=== PATIENT | male | born 1960 | race Caucasian/White ===

== ENCOUNTER 2021-09-09 12:28 | Emergency (ER) | payer MEDICAID, SELFPAY ==
--- NOTE | ~2021-09-09 | XR_ITS ---
EXAMINATION: XR CHEST CLINICAL INFORMATION: Cough and fever COMPARISON: None TECHNIQUE: Frontal view of the chest was obtained. FINDINGS: The cardiac and mediastinal contours are normal. There is atelectasis at the left lung base. The lungs are otherwise clear. There is no pleural effusion or pneumothorax. There is distended bowel below the diaphragm. XR/XR chest 1V IMPRESSION: Atelectasis at the left lung base. Distended bowel below the diaphragm.
--- NOTE | ~2021-09-09 | CT_ITS ---
EXAMINATION: CT ABDOMEN AND PELVIS WITHOUT CONTRAST CLINICAL INFORMATION: Abdominal pain, fever COMPARISON: None TECHNIQUE: Multidetector volumetric imaging was performed from the superior aspect of the liver through the pubic symphysis. Sagittal and coronal reformatted images were obtained on the technologist's workstation. This CT examination was performed using dose optimization techniques as appropriate, variously including the following: *Automated exposure control *Adjustment of mA and/or kV according to patient size (this includes techniques or standardized protocols for targeted exams where dose is matched to indication/reason for exam; i.e. extremities or head) *Use of iterative reconstruction technique DLP: 983 mGy-cm FINDINGS: LUNG BASES: High attenuation along the course of the coronary arteries may reflect a combination of coronary artery calcification and coronary artery stents. ABDOMINAL AND PELVIC WALL: Small fat-containing left inguinal hernia. LIVER AND BILIARY TREE: Hypoattenuating hepatic parenchyma compatible with hepatic steatosis. The liver is enlarged measuring 23 cm in span. GALLBLADDER: Cholelithiasis without evidence of acute cholecystitis. PANCREAS: Unremarkable. SPLEEN: Unremarkable. ADRENAL GLANDS: Unremarkable. KIDNEYS AND URETERS: A 0.8 cm hyperattenuating indeterminate left lower pole renal lesion. Punctate nonobstructing left renal stones. No hydronephrosis or obstructive ureterolithiasis. Fluid attenuation Bosniak 1 left renal cysts, no imaging follow-up recommended. GASTROINTESTINAL TRACT: Large desiccated stool ball within the colon measuring at least 5.9 cm in transverse diameter and at least 14.2 cm in span. Gaseous distention of colon proximal to this with relative wall thickening involving the sigmoid colon and rectum with respect to degree of distention raising suspicion for colitis with mild mesorectal fat stranding, 7:75. Appendicolith noted in the base of an otherwise normal appendix. VASCULAR: Atherosclerosis of the abdominal aorta and major branch vessels. LYMPH NODES/PERITONEUM: No lymphadenopathy. FREE FLUID: None. BLADDER: Unremarkable. PELVIC VISCERA: Unremarkable. OSSEOUS STRUCTURES: Unremarkable. CT/CT abdomen pelvis wo con IMPRESSION: Large desiccated stool ball within the colon measuring at least 5.9 cm in transverse diameter and at least 14.2 cm in span. Gaseous distention of colon proximal to this with relative wall thickening involving the sigmoid colon and rectum, with surrounding mesorectal fat stranding raising suspicion for stercoral colitis. Hepatomegaly and hepatic steatosis. Cholelithiasis without evidence of acute cholecystitis. Punctate nonobstructing left renal stones. No hydronephrosis or obstructive ureterolithiasis. A 0.8 cm indeterminate left lower pole hyperattenuating renal lesion. Given this may reflect a hyperdense renal cyst, recommend correlation with renal ultrasound, and if renal ultrasound is not confirmatory this reflects a cyst consider a CT or MR renal mass protocol, although this may be too small to definitively characterize.
[2021-09-09 12:44] VITALS: BP 104/54; PULSE 99; RESP 18; TEMP 37.6; O2SAT 95; BMI 36.3
--- NOTE | 2021-09-09 12:48 | ECG_ITS ---
Test Reason : SEPSIS Blood Pressure : / mmHG Vent. Rate : 099 BPM Atrial Rate : 099 BPM P-R Int : 256 ms QRS Dur : 106 ms QT Int : 346 ms P-R-T Axes : 032 -73 025 degrees QTc Int : 444 ms Sinus rhythm with 1st degree A-V block Left axis deviation Incomplete right bundle branch block Inferior infarct , age undetermined Anteroseptal infarct , age undetermined Abnormal ECG No previous ECGs available Referred By: Amy Samayoa Electronically Signed By:CHOLO WILSON MD
[2021-09-09 13:45] LABS: COVID-19 Test Negative (Negative); IDNOW Serial# 16C4AD1C; IDNOW Serial# 55D5AD1C; Influenza A Negative (Negative); Influenza B2 Negative (Negative)
[2021-09-09 13:46] LABS: Lactic Acid 2.3 mmol/L (0.5-2.0)
--- NOTE | 2021-09-09 13:56 | ED.GENADULT ---
HPI - General Adult General Chief complaint: General Medical Stated complaint: FEVER FROM SNF PER EMS Time Seen by Provider: 09/09/21 12:47 Source: patient and EMS Mode of arrival: EMS History of Present Illness HPI narrative: 60-year-old male brought in by EMS, history provided primarily by EMS and the sending facility as patient appears to have some cognitive delays. Patient denies any current pain, shortness of breath, chest pain or palpitations at this time. The facility states that patient had a fever of 103 this morning for which they gave him Tylenol. Related Data Home Medications Medication Instructions Recorded Confirmed acetaminophen 325 mg tablet 650 mg PO BID 09/09/21 09/09/21 amlodipine 10 mg tablet 10 mg PO DAILY 09/09/21 09/09/21 ascorbic acid (vitamin C) 500 mg 500 mg PO DAILY 09/09/21 09/09/21 tablet aspirin 81 mg chewable tablet 81 mg PO DAILY 09/09/21 09/09/21 calcium carbonate 600 mg-vitamin 1 tab PO DAILY 09/09/21 09/09/21 D3 5 mcg (200 unit) tablet cetirizine 10 mg tablet 10 mg PO DAILY 09/09/21 09/09/21 clozapine 50 mg tablet 50 mg PO BEDTIME 09/09/21 09/09/21 diphenhydramine HCl 25 mg tablet 25 mg PO BEDTIME 09/09/21 09/09/21 docusate sodium 100 mg tablet 100 mg PO BID 09/09/21 09/09/21 dulaglutide 4.5 mg/0.5 mL 4.5 mg subcut [place] 09/09/21 09/09/21 subcutaneous pen injector ferrous sulfate 325 mg (65 mg 325 mg PO DAILY 09/09/21 09/09/21 iron) tablet folic acid 1 mg tablet 1 mg PO BID 09/09/21 09/09/21 haloperidol 2 mg tablet 8 mg PO BEDTIME 09/09/21 09/09/21 haloperidol 5 mg tablet 5 mg PO DAILY PRN Psychosis 09/09/21 09/09/21 isosorbide mononitrate 30 mg 30 mg PO DAILY 09/09/21 09/09/21 tablet,extended release 24 hr lactulose 10 gram/15 mL oral 20 g PO BID 09/09/21 09/09/21 solution levothyroxine 25 mcg tablet 25 mcg PO DAILY@0600 09/09/21 09/09/21 lorazepam 0.5 mg tablet (Ativan) 0.25 mg PO Q8H PRN Anxiety 09/09/21 09/09/21 magnesium chloride 71.5 mg 143 mg PO DAILY 09/09/21 09/09/21 (magnesium chloride) tablet,delayed release magnesium hydroxide 400 mg/5 mL 400 mg PO BEDTIME 09/09/21 09/09/21 oral suspension (Milk of Magnesia) metformin 1,000 mg tablet 1,000 mg PO BID 09/09/21 09/09/21 metoprolol tartrate 50 mg tablet 50 mg PO DAILY 09/09/21 09/09/21 mirtazapine 15 mg tablet 15 mg PO BEDTIME 09/09/21 09/09/21 niacin 500 mg tablet 500 mg PO DAILY 09/09/21 09/09/21 omega 4-kgh-cpp-fish oil 1,000 mg 1 cap PO BEDTIME 09/09/21 09/09/21 (120 mg-180 mg) capsule (Fish Oil) omeprazole 20 mg tablet,delayed 20 mg PO DAILY 09/09/21 09/09/21 release rosuvastatin 40 mg tablet 40 mg PO BEDTIME 09/09/21 09/09/21 sennosides 8.6 mg tablet (senna) 8.6 mg PO BEDTIME 09/09/21 09/09/21 simethicone 80 mg chewable tablet 80 mg PO TIDAC 09/09/21 09/09/21 topiramate 100 mg tablet (Topamax) 100 mg PO BID 09/09/21 09/09/21 valproic acid (as sodium salt) 250 1,250 mg PO BID 09/09/21 09/09/21 mg/5 mL oral solution Allergies Allergy/AdvReac Type Severity Reaction Status Date / Time Unable to Assess Allergy Unverified 09/09/21 12:47 Review of Systems Review of Systems: Pertinent positives and negatives as stated in HPI and remaining ROS not able to obtain due to patient's underlying cognitive constraints. [facility] Past Medical History Source: nursing notes reviewed Medical History Anxiety Atherosclerotic heart disease of [place] coronary artery without angina pectoris Bipolar disorder COPD (chronic obstructive pulmonary disease) Delusional disorder Diabetes Dysphagia GERD (gastroesophageal reflux disease) HTN (hypertension) Hyperlipidemia Insomnia MDD (major depressive disorder) Obesity KILEY (obstructive sleep apnea) PTSD (post-traumatic stress disorder) Schizoaffective disorder Social History Social History Advance Directives: No Advance Directives Information Provided: No Physical Exam ED Vital Signs: Vital Signs - 24 hr 09/09/21 12:44 09/09/21 14:18 09/09/21 15:56 Temperature 99.6 F 97.9 F Pulse Rate 99 94 88 Respiratory Rate 18 16 16 Blood Pressure 104/54 L 117/67 133/69 Pulse Oximetry 95 94 96 Oxygen Delivery Method Room Air Room Air Room Air 09/09/21 16:27 09/09/21 17:54 Temperature 98.2 F Pulse Rate 84 90 Respiratory Rate 16 16 Blood Pressure 124/60 Pulse Oximetry 98 Oxygen Delivery Method Room Air BMI result Body Mass Index 36.3 VITAL SIGNS: Reviewed. GENERAL: Chronically ill, in no acute distress. HEAD: Normocephalic/atraumatic EYES: PERRLA, EOMI EARS: Ext canals without abnormality OROPHARYNX: no oral lesions noted, posterior pharynx clear LUNGS: decreased bilaterally, right greater than left, no noted rhonchi or rales. SpO2<95> CARDIOVASCULAR: Regular rate and rhythm without noted murmurs, no JVD or lower extremity edema. ABDOMEN: Soft, non-tender, non-distended with bowel sounds. MUSCULOSKELETAL: No tenderness, deformities, or effusions noted on gross inspection. EXTREMITIES: No cyanosis, clubbing or edema, on observation of bilateral lower extremities patient does not appear to walk at baseline. SKIN: Inspection of the skin reveals no rashes, ulcerations, jaundice, pallor, or petechiae. NEUROLOGIC: Alert and oriented x 2. Course Course Course Narrative: 1420: 60-year-old male with history and clinical presentation suggestive possible infectious etiology, there was a delay in obtaining full labs due to venous access. On review of all investigations there is no leukocytosis, patient has remained afebrile while here in the emergency room, chest x-ray, CT scan, urine are otherwise negative for acute findings, patient is noted to be tolerating oral in food without difficulty there is a possibility of some mild atelectasis but otherwise patient is hemodynamically stable and cleared for return to his facility. The noted lactic acidosis likely secondary to mild dehydration and nebulized treatments. Medical Decision Making Lab Data Result diagrams: 09/09/21 14:48 09/09/21 14:48 Labs: Lab Results 09/09/21 09/09/21 09/09/21 Range/Units 13:12 13:12 13:12 WBC (4.8-10.8) X10*3/uL RBC (4.60-5.80) X10*6/uL Hgb (14.0-18.0) g/dl Hct (42.0-52.0) % MCV (80.0-98.0) fL MCH (27.0-33.0) pg MCHC (31.0-36.0) g/dl RDW (11.0-16.0) % Plt Count (160-400) X10*3/uL MPV (9.4-12.4) fL Immature Gran % (Auto) (0.0-0.4) % Neut % (Auto) (45-73) % Lymph % (Auto) (20-40) % [place] % (Auto) (2-11) % Eos % (Auto) (0-4) % Baso % (Auto) (0-2) % Lymph # (Auto) (1.2-4.9) X10*3/uL [place] # (Auto) (0.1-1.2) X10*3/uL Eos # (Auto) (0.0-0.4) X10*3/uL Baso # (Auto) (0.0-0.2) X10*3/uL Abs Immat Gran (auto) (0.00-0.03) X10*3/uL Absolute Neuts (auto) (2.0-8.3) x10*3/uL Absolute Nucleated RBC (0.0-0.012) X10*3/uL Nucleated RBC % (auto) (0.0-0.2) /100WBC PT (9.9-13.0) SEC INR (0.9-1.1) Sodium (135-145) mmol/L Potassium (3.3-5.1) mmol/L Chloride (96-108) mmol/L Carbon Dioxide (22-29) mmol/L Anion Gap (12-20) BUN (9-16) mg/dL Creatinine (0.5-1.4) mg/dL Estim Creat Clear Calc Estimated GFR Random Glucose (60-115) mg/dL Lactic Acid 2.3 H* (0.5-2.0) mmol/L Lactic Acid F/U @ 2Hr (0.5-2.0) mmol/L Lactic Acid F/U @ 4Hr (0.5-2.0) mmol/L Calcium (8.4-10.2) mg/dL Total Bilirubin (0.0-1.0) mg/dL AST (5-37) U/L ALT (0-40) U/L Alkaline Phosphatase (39-117) U/L Total Protein (6.5-8.0) g/dL Albumin (3.5-5.0) g/dL Urine Color Urine Appearance Urine pH (5.0-8.0) Ur Specific [place] (1.005-1.025) Urine Protein (NEG-TRACE) MG/DL Urine Glucose (UA) (NEG) MG/DL Urine Ketones (NEG) MG/DL Urine Blood (NEG) Urine Nitrite (NEG) Ur Leukocyte Esterase (NEG) Urine RBC (0) /HPF Urine WBC (0-4) /HPF Ur Squamous Epith Cells /LPF Urine Bacteria /LPF Urine Mucus /LPF COVID-19 (TAIWO) Negative (Negative) COVID-19 Clin Com See Note Influenza Type A (ANDREA) Negative (Negative) Influenza Type B (ANDREA) Negative (Negative) Influenza A & B Note See Note 09/09/21 09/09/21 09/09/21 Range/Units 14:48 14:48 14:48 WBC 9.5 (4.8-10.8) X10*3/uL RBC 4.49 L (4.60-5.80) X10*6/uL Hgb 12.5 L (14.0-18.0) g/dl Hct 38.0 L (42.0-52.0) % MCV 84.6 (80.0-98.0) fL MCH 27.8 (27.0-33.0) pg MCHC 32.9 (31.0-36.0) g/dl RDW 15.9 (11.0-16.0) % Plt Count 183 (160-400) X10*3/uL MPV 9.4 (9.4-12.4) fL Immature Gran % (Auto) 0.4 (0.0-0.4) % Neut % (Auto) 63.3 (45-73) % Lymph % (Auto) 24.3 (20-40) % [place] % (Auto) 11.3 H (2-11) % Eos % (Auto) 0.4 (0-4) % Baso % (Auto) 0.3 (0-2) % Lymph # (Auto) 2.3 (1.2-4.9) X10*3/uL [place] # (Auto) 1.1 (0.1-1.2) X10*3/uL Eos # (Auto) 0.0 (0.0-0.4) X10*3/uL Baso # (Auto) 0.0 (0.0-0.2) X10*3/uL Abs Immat Gran (auto) 0.04 H (0.00-0.03) X10*3/uL Absolute Neuts (auto) 6.0 (2.0-8.3) x10*3/uL Absolute Nucleated RBC 0.000 (0.0-0.012) X10*3/uL Nucleated RBC % (auto) 0.0 (0.0-0.2) /100WBC PT 12.6 (9.9-13.0) SEC INR 1.1 (0.9-1.1) Sodium 133 L (135-145) mmol/L Potassium 4.5 (3.3-5.1) mmol/L Chloride 100 (96-108) mmol/L Carbon Dioxide 23 (22-29) mmol/L Anion Gap 15 (12-20) BUN 26 H (9-16) mg/dL Creatinine 0.94 (0.5-1.4) mg/dL Estim Creat Clear Calc 93.4 Estimated GFR > 60 Random Glucose 223 H (60-115) mg/dL Lactic Acid (0.5-2.0) mmol/L Lactic Acid F/U @ 2Hr (0.5-2.0) mmol/L Lactic Acid F/U @ 4Hr (0.5-2.0) mmol/L Calcium 9.3 (8.4-10.2) mg/dL Total Bilirubin < 0.2 (0.0-1.0) mg/dL AST 13 (5-37) U/L ALT 25 (0-40) U/L Alkaline Phosphatase 61 (39-117) U/L Total Protein 6.9 (6.5-8.0) g/dL Albumin 3.7 (3.5-5.0) g/dL Urine Color Urine Appearance Urine pH (5.0-8.0) Ur Specific [place] (1.005-1.025) Urine Protein (NEG-TRACE) MG/DL Urine Glucose (UA) (NEG) MG/DL Urine Ketones (NEG) MG/DL Urine Blood (NEG) Urine Nitrite (NEG) Ur Leukocyte Esterase (NEG) Urine RBC (0) /HPF Urine WBC (0-4) /HPF Ur Squamous Epith Cells /LPF Urine Bacteria /LPF Urine Mucus /LPF COVID-19 (TAIWO) (Negative) COVID-19 Clin Com Influenza Type A (ANDREA) (Negative) Influenza Type B (ANDREA) (Negative) Influenza A & B Note 09/09/21 09/09/21 09/09/21 Range/Units 15:43 16:11 18:49 WBC (4.8-10.8) X10*3/uL RBC (4.60-5.80) X10*6/uL Hgb (14.0-18.0) g/dl Hct (42.0-52.0) % MCV (80.0-98.0) fL MCH (27.0-33.0) pg MCHC (31.0-36.0) g/dl RDW (11.0-16.0) % Plt Count (160-400) X10*3/uL MPV (9.4-12.4) fL Immature Gran % (Auto) (0.0-0.4) % Neut % (Auto) (45-73) % Lymph % (Auto) (20-40) % [place] % (Auto) (2-11) % Eos % (Auto) (0-4) % Baso % (Auto) (0-2) % Lymph # (Auto) (1.2-4.9) X10*3/uL [place] # (Auto) (0.1-1.2) X10*3/uL Eos # (Auto) (0.0-0.4) X10*3/uL Baso # (Auto) (0.0-0.2) X10*3/uL Abs Immat Gran (auto) (0.00-0.03) X10*3/uL Absolute Neuts (auto) (2.0-8.3) x10*3/uL Absolute Nucleated RBC (0.0-0.012) X10*3/uL Nucleated RBC % (auto) (0.0-0.2) /100WBC PT (9.9-13.0) SEC INR (0.9-1.1) Sodium (135-145) mmol/L Potassium (3.3-5.1) mmol/L Chloride (96-108) mmol/L Carbon Dioxide (22-29) mmol/L Anion Gap (12-20) BUN (9-16) mg/dL Creatinine (0.5-1.4) mg/dL Estim Creat Clear Calc Estimated GFR Random Glucose (60-115) mg/dL Lactic Acid (0.5-2.0) mmol/L Lactic Acid F/U @ 2Hr 2.2 H* (0.5-2.0) mmol/L Lactic Acid F/U @ 4Hr 2.1 H* (0.5-2.0) mmol/L Calcium (8.4-10.2) mg/dL Total Bilirubin (0.0-1.0) mg/dL AST (5-37) U/L ALT (0-40) U/L Alkaline Phosphatase (39-117) U/L Total Protein (6.5-8.0) g/dL Albumin (3.5-5.0) g/dL Urine Color YELLOW Urine Appearance CLEAR Urine pH 6.0 (5.0-8.0) Ur Specific [place] 1.025 (1.005-1.025) Urine Protein 2+ H (NEG-TRACE) MG/DL Urine Glucose (UA) NEG (NEG) MG/DL Urine Ketones 5 (NEG) MG/DL Urine Blood NEG (NEG) Urine Nitrite NEG (NEG) Ur Leukocyte Esterase NEG (NEG) Urine RBC 0-2 (0) /HPF Urine WBC 0 (0-4) /HPF Ur Squamous Epith Cells TRACE /LPF Urine Bacteria NONE /LPF Urine Mucus TRACE /LPF COVID-19 (TAIWO) (Negative) COVID-19 Clin Com Influenza Type A (ANDREA) (Negative) Influenza Type B (ANDERA) (Negative) Influenza A & B Note ECG Data Attestation: I personally reviewed and interpreted this ECG as follows: Prior ECG tracings: not available for review Interpretation: Sinus rhythm with first-degree AV block, HR-99, noted Q-waves in the inferior leads, age indeterminate, no prior EKGs for comparison here. No STEMI, QTC within normal limits. Discharge Plan Discharge Clinical Impression: Fever of unknown origin, Constipation Patient Disposition: [facility] Instructions: Constipation (ED), Fever in Adults (ED), Atelectasis (ED) Additional Instructions: 1. Resume all home medications as prescribed. 2. No source for the fever was identified. 3. follow-up with your primary care provider in the next 2-3 days for re-evaluation. Return to the ER for worsening symptoms. Prescriptions: No Action sennosides [senna] 8.6 mg Tablet 8.6 mg PO BEDTIME acetaminophen 325 mg Tablet 650 mg PO BID haloperidol [Haldol] 5 mg Tablet 5 mg PO DAILY PRN (Reason: Psychosis) cetirizine 10 mg Tablet 10 mg PO DAILY isosorbide mononitrate 30 mg Tablet Extended Release 24 Hr 30 mg PO DAILY calcium carbonate-vitamin D3 [Calcium + D] 600 mg-5 mcg (200 unit) Tablet 1 tab PO DAILY levothyroxine 25 mcg Tablet 25 mcg PO DAILY@0600 lorazepam [Ativan] 0.5 mg Tablet 0.25 mg PO Q8H PRN (Reason: Anxiety) magnesium hydroxide [Milk of Magnesia] 400 mg/5 mL Suspension 400 mg PO BEDTIME ascorbic acid (vitamin C) 500 mg Tablet 500 mg PO DAILY valproic acid (as sodium salt) 250 mg/5 mL Solution 1,250 mg PO BID amlodipine 10 mg Tablet 10 mg PO DAILY ferrous sulfate 325 mg (65 mg iron) Tablet 325 mg PO DAILY metformin 1,000 mg Tablet 1,000 mg PO BID diphenhydramine HCl 25 mg Tablet 25 mg PO BEDTIME niacin 500 mg Tablet 500 mg PO DAILY aspirin 81 mg Tablet,Chewable 81 mg PO DAILY folic acid 1 mg Tablet 1 mg PO BID mirtazapine 15 mg Tablet 15 mg PO BEDTIME haloperidol [Haldol] 2 mg Tablet 8 mg PO BEDTIME topiramate [Topamax] 100 mg Tablet 100 mg PO BID docusate sodium 100 mg Tablet 100 mg PO BID simethicone 80 mg Tablet,Chewable 80 mg PO TIDAC rosuvastatin 40 mg Tablet 40 mg PO BEDTIME lactulose 10 gram/15 mL Solution 20 g PO BID clozapine 50 mg Tablet 50 mg PO BEDTIME omeprazole 20 mg Tablet,Delayed Release (Dr/Ec) 20 mg PO DAILY omega 7-afs-fyp-fish oil [Fish Oil] 1,000 mg (120 mg-180 mg) Capsule 1 cap PO BEDTIME magnesium chloride 71.5 mg Tablet,Delayed Release (Dr/Ec) 143 mg PO DAILY dulaglutide 4.5 mg/0.5 mL Pen Injector 4.5 mg SUBCUT [place] metoprolol tartrate 50 mg Tablet 50 mg PO DAILY Referrals: Desirae Yin MD [Primary Care Provider] -
[2021-09-09 14:18] VITALS: BP 117/67; PULSE 94; RESP 16; O2SAT 94
--- NOTE | 2021-09-09 14:25 | PHA.MEDREC ---
Pharmacy Consult ? Medication Reconciliation Pharmacy has completed the medication reconciliation. Patient came from [facility] with medicaiton list. Called to confirmed metformin dose is 1000 BID not 100 mg BID as written in care. Also confirmed patient is on metoprolol tatrate as med list on stated metoprolol. Judie Ledbetter, PharmD
[2021-09-09 14:53] LABS: Basophils Percent Auto 0.3 % (0-2); Eosinophils Percent Auto 0.4 % (0-4); Hemoglobin 12.5 g/dl (14.0-18.0); Imm Gran Abs Auto 0.04 X10*3/uL (0.00-0.03); Imm Gran Pct Auto 0.4 % (0.0-0.4); Lymphocytes Absolute Auto 2.3 X10*3/uL (1.2-4.9); Lymphocytes Percent Auto 24.3 % (20-40); Mean Corpuscular HGB Conc 32.9 g/dl (31.0-36.0); Mean Corpuscular Hemoglobin 27.8 pg (27.0-33.0); Mean Corpuscular Volume 84.6 fL (80.0-98.0); Mean Platelet Volume 9.4 fL (9.4-12.4); Monocytes Absolute Auto 1.1 X10*3/uL (0.1-1.2); Monocytes Percent Auto 11.3 % (2-11); Neutrophils Percent Auto 63.3 % (45-73); Platelet Count 183 X10*3/uL (160-400); Red Blood Count 4.49 X10*6/uL (4.60-5.80); Red Cell Distribution Width 15.9 % (11.0-16.0); White Blood Count 9.5 X10*3/uL (4.8-10.8)
[2021-09-09 14:59] LABS: INTERNATIONAL NORM RATIO 1.1 (0.9-1.1); Prothrombin Time 12.6 SEC (9.9-13.0)
[2021-09-09 15:15] LABS: Reflex Lactate? Lactic Acid Added
[2021-09-09 15:34] LABS: Alanine Aminotransferase 25 U/L (0-40); Albumin Level 3.7 g/dL (3.5-5.0); Alkaline Phosphatase 61 U/L (39-117); Anion Gap 15 (12-20); Aspartate Amino Transferase 13 U/L (5-37); Bilirubin Total < 0.2 mg/dL (0.0-1.0); Blood Urea Nitrogen 26 mg/dL (9-16); Calcium 9.3 mg/dL (8.4-10.2); Carbon Dioxide 23 mmol/L (22-29); Chloride 100 mmol/L (96-108); Creatinine Clr Calc Pharmacy 93.4; Estimated Glomerular Filt Rate > 60; Glucose Random 223 mg/dL (60-115); Potassium 4.5 mmol/L (3.3-5.1); Sodium 133 mmol/L (135-145); Total Protein 6.9 g/dL (6.5-8.0)
--- NOTE | 2021-09-09 15:49 | PC.NURSE ---
collected urine specimen via straight cath. Pt resting comfortably.
[2021-09-09 15:53] LABS: Appearance Urine CLEAR; Color Urine YELLOW; Glucose Urine UA NEG (NEG); Leukocyte Esterase Urine NEG (NEG); Nitrite Urine NEG (NEG); Specific Gravity - Urine 1.025 (1.005-1.025); UACC Culture Trigger NO; Urine Blood NEG (NEG); Urine Ketones 5 MG/DL (NEG); Urine Protein 2+ MG/DL (NEG-TRACE)
[2021-09-09 15:56] VITALS: BP 133/69; PULSE 88; RESP 16; TEMP 36.6; O2SAT 96
--- NOTE | 2021-09-09 15:57 | PC.NURSE ---
PATIENT WAS SOILED ,CARE GIVEN BEDDING CHANGE PATIENT WATCHING TELEVISION .
[2021-09-09 16:21] LABS: Mucus Urine TRACE /LPF; RBC Urine 0-2 /HPF (0); Squamous Epithelial Cell Urine TRACE /LPF; WBC Urine 0 /HPF (0-4)
[2021-09-09] MEDS: Albuterol/Iprat 2.5/0.5MG 3 ML AMPUL.NEB INHALE (16:24)
[2021-09-09 16:27] VITALS: PULSE 84; RESP 16; O2SAT 98
[2021-09-09 16:46] LABS: ~Lactic Acid-LAB USE ONLY 2.2 mmol/L (0.5-2.0)
[2021-09-09] MEDS: 0.9 % Sodium Chloride 1,000 ML 999 ML IV (16:59)
[2021-09-09 17:54] VITALS: BP 124/60; PULSE 90; RESP 16; TEMP 36.8; O2SAT 98
[2021-09-09 17:55] LABS: MANUAL DIFF FLAG NO
[2021-09-09 18:15] LABS: Reflex Lactate? 2 Y
--- NOTE | 2021-09-09 18:52 | PM.CNGS ---
History of Present Illness Consult details Consult date: 09/09/21 Narrative: 60M referred to me by the ED for an abnormal CT scan of the abdomen. He is fron a NH with cognitive issues secondary to schizoaffective d/o as well as PTSD. He does not provide any history. He was apparently noted to have fever at the NH so he was sent to the ED. He therefore underwent CXR and CT scan in the ED to investigate for any source. His CT report suggested a large stool ball in the rectum with stercoral colitis. The patient answers very simple questions. He denies abdominal pain when asked. There is no report of nausea or vomitting. Review of Systems Review of Systems: pt does not offer much with regards to ROS in view of cognitive issues PMFSH Past Medical History Medical History Anxiety Atherosclerotic heart disease of [place] coronary artery without angina pectoris Bipolar disorder COPD (chronic obstructive pulmonary disease) Delusional disorder Diabetes Dysphagia GERD (gastroesophageal reflux disease) HTN (hypertension) Hyperlipidemia Insomnia MDD (major depressive disorder) Obesity KILEY (obstructive sleep apnea) PTSD (post-traumatic stress disorder) Schizoaffective disorder Social History Social History Advance Directives: No Advance Directives Information Provided: No Meds Allergies Allergy/AdvReac Type Severity Reaction Status Date / Time Unable to Assess Allergy Unverified 09/09/21 12:47 Home Medications Medication Instructions Recorded Confirmed Last Taken Type acetaminophen 325 mg tablet 650 mg PO BID 09/09/21 09/09/21 09/09/21 History amlodipine 10 mg tablet 10 mg PO DAILY 09/09/21 09/09/21 09/09/21 History ascorbic acid (vitamin C) 500 mg 500 mg PO DAILY 09/09/21 09/09/21 09/09/21 History tablet aspirin 81 mg chewable tablet 81 mg PO DAILY 09/09/21 09/09/21 09/09/21 History calcium carbonate 600 mg-vitamin 1 tab PO DAILY 09/09/21 09/09/21 Unknown History D3 5 mcg (200 unit) tablet cetirizine 10 mg tablet 10 mg PO DAILY 09/09/21 09/09/21 09/09/21 History clozapine 50 mg tablet 50 mg PO BEDTIME 09/09/21 09/09/21 09/08/21 History diphenhydramine HCl 25 mg tablet 25 mg PO BEDTIME 09/09/21 09/09/21 09/08/21 History docusate sodium 100 mg tablet 100 mg PO BID 09/09/21 09/09/21 09/09/21 History dulaglutide 4.5 mg/0.5 mL 4.5 mg subcut [place] 09/09/21 09/09/21 09/07/21 History subcutaneous pen injector ferrous sulfate 325 mg (65 mg 325 mg PO DAILY 09/09/21 09/09/21 09/09/21 History iron) tablet folic acid 1 mg tablet 1 mg PO BID 09/09/21 09/09/21 09/09/21 History haloperidol 2 mg tablet 8 mg PO BEDTIME 09/09/21 09/09/21 09/08/21 History haloperidol 5 mg tablet 5 mg PO DAILY PRN Psychosis 09/09/21 09/09/21 Unknown History isosorbide mononitrate 30 mg 30 mg PO DAILY 09/09/21 09/09/21 09/09/21 History tablet,extended release 24 hr lactulose 10 gram/15 mL oral 20 g PO BID 09/09/21 09/09/21 09/09/21 History solution levothyroxine 25 mcg tablet 25 mcg PO DAILY@0600 09/09/21 09/09/21 09/09/21 History lorazepam 0.5 mg tablet (Ativan) 0.25 mg PO Q8H PRN Anxiety 09/09/21 09/09/21 Unknown History magnesium chloride 71.5 mg 143 mg PO DAILY 09/09/21 09/09/21 Unknown History (magnesium chloride) tablet,delayed release magnesium hydroxide 400 mg/5 mL 400 mg PO BEDTIME 09/09/21 09/09/21 Unknown History oral suspension (Milk of Magnesia) metformin 1,000 mg tablet 1,000 mg PO BID 09/09/21 09/09/21 09/09/21 History metoprolol tartrate 50 mg tablet 50 mg PO DAILY 09/09/21 09/09/21 09/09/21 History mirtazapine 15 mg tablet 15 mg PO BEDTIME 09/09/21 09/09/21 09/08/21 History niacin 500 mg tablet 500 mg PO DAILY 09/09/21 09/09/21 09/09/21 History omega 1-ndl-onc-fish oil 1,000 mg 1 cap PO BEDTIME 09/09/21 09/09/21 09/08/21 History (120 mg-180 mg) capsule (Fish Oil) omeprazole 20 mg tablet,delayed 20 mg PO DAILY 09/09/21 09/09/21 09/09/21 History release rosuvastatin 40 mg tablet 40 mg PO BEDTIME 09/09/21 09/09/21 09/08/21 History sennosides 8.6 mg tablet (senna) 8.6 mg PO BEDTIME 09/09/21 09/09/21 09/08/21 History simethicone 80 mg chewable tablet 80 mg PO TIDAC 09/09/21 09/09/21 09/09/21 History topiramate 100 mg tablet (Topamax) 100 mg PO BID 09/09/21 09/09/21 09/09/21 History valproic acid (as sodium salt) 250 1,250 mg PO BID 09/09/21 09/09/21 09/09/21 History mg/5 mL oral solution Physical Exam Vital Signs: Vital Signs: Last Vital Signs Temp 98.2 F 09/09/21 17:54 Pulse 90 09/09/21 17:54 Resp 16 09/09/21 17:54 BP 124/60 09/09/21 17:54 Pulse Ox 98 09/09/21 17:54 O2 Del Method 09/09/21 17:54 BMI result Body Mass Index 36.3 Const: Other: does not appear to be in pain General: comfortable and no acute distress Resp: Effort & Inspection: normal respiratory effort Cardio: Rate: regular rate GI: Inspection: No distended Palpation (GI): Soft to palpation, not firm, nontender, no guarding and not rigid Results Labs Result diagrams: 09/09/21 14:48 09/09/21 14:48 Labs: Abnormal lab results 09/09/21 09/09/21 09/09/21 Range/Units 13:12 14:48 14:48 RBC 4.49 L (4.60-5.80) X10*6/uL Hgb 12.5 L (14.0-18.0) g/dl Hct 38.0 L (42.0-52.0) % [place] % (Auto) 11.3 H (2-11) % Abs Immat Gran (auto) 0.04 H (0.00-0.03) X10*3/uL Sodium 133 L (135-145) mmol/L BUN 26 H (9-16) mg/dL Random Glucose 223 H (60-115) mg/dL Lactic Acid 2.3 H* (0.5-2.0) mmol/L Lactic Acid F/U @ 2Hr (0.5-2.0) mmol/L Urine Protein (NEG-TRACE) MG/DL 09/09/21 09/09/21 Range/Units 15:43 16:11 RBC (4.60-5.80) X10*6/uL Hgb (14.0-18.0) g/dl Hct (42.0-52.0) % [place] % (Auto) (2-11) % Abs Immat Gran (auto) (0.00-0.03) X10*3/uL Sodium (135-145) mmol/L BUN (9-16) mg/dL Random Glucose (60-115) mg/dL Lactic Acid (0.5-2.0) mmol/L Lactic Acid F/U @ 2Hr 2.2 H* (0.5-2.0) mmol/L Urine Protein 2+ H (NEG-TRACE) MG/DL Short CBC 09/09/21 Range/Units 14:48 WBC 9.5 (4.8-10.8) X10*3/uL Hgb 12.5 L (14.0-18.0) g/dl Hct 38.0 L (42.0-52.0) % Plt Count 183 (160-400) X10*3/uL BMP 09/09/21 14:48 Sodium 133 L Potassium 4.5 Chloride 100 Carbon Dioxide 23 BUN 26 H Creatinine 0.94 Calcium 9.3 Liver Function 09/09/21 Range/Units 14:48 Total Bilirubin < 0.2 (0.0-1.0) mg/dL AST 13 (5-37) U/L ALT 25 (0-40) U/L Alkaline Phosphatase 61 (39-117) U/L Albumin 3.7 (3.5-5.0) g/dL Urine 09/09/21 Range/Units 15:43 Urine Color YELLOW Urine Appearance CLEAR Urine pH 6.0 (5.0-8.0) Ur Specific [place] 1.025 (1.005-1.025) Urine Protein 2+ H (NEG-TRACE) MG/DL Urine Glucose (UA) NEG (NEG) MG/DL All other labs normal. Assessment and Plan (1) Constipation: Status: Acute I have reviewed his CT scan with the radiologist. There is report of a large stool ball in the rectum. This is however appreciated only on series 6. The other windows do not appear to show this, so this is likely more of liquids stool. I have done a digital rectal exam and I do not feel an impaction. There is actually a lot of air in the rectum. He is not clinically obstructed and has a very soft abdomen without significant tenderness. He had liquid stools on the bed during the exam as well. He has some colonic dilatation likely from anticholinergic effects of his antipsychotic meds. He may given stool softeners and enemas for now, but he does not have any surgical issues at this time. It does not appear that the reported fever is related to this CT finding. I will follow along while he is in the hospital. I will review his CT with the radiologist. Procedures Date of Service Date of Service: 09/09/21
--- NOTE | 2021-09-09 19:00 | PC.NURSE ---
PATIENT REQUEST A CHEESE VY ,AND VIOLA I CALLED [facility] [employer] AND ASK IF THEY COULD PLEASE MAKE PATIENT CHEESE VY AND VIOLA ,PATIENT VERY HAPPY THAT HE WAS ABLE TO HAVE IT .
[2021-09-09 19:06] LABS: ~Lactic Acid-LAB USE ONLY 2.1 mmol/L (0.5-2.0)
[2021-09-09 19:51] VITALS: BP 132/70; PULSE 74; RESP 16; TEMP 37.1; O2SAT 98
--- NOTE | 2021-09-09 20:13 | PC.NURSE ---
PATIENT WAS INC OF URINE ,CARE GIVEN AND BEDDING CHANGE .
--- NOTE | 2021-09-09 21:12 | PC.NURSE ---
PATIENT HAD AN EXTRA LARGE BOWEL MOVEMENT ,CARE GIVEN PATIENT LEAVE FOR [facility] .
== END 2021-09-09 21:36 | disposition skilled nursing facility (03) ==
PROVIDERS: Emergency Provider Student in an Organized Health Care Education/Training Program; PCP Internal Medicine
DX: K59.00 Constipation, unspecified (principal); J98.11 Atelectasis; R50.9 Fever, unspecified; R05.9 Cough, unspecified; R10.30 Lower abdominal pain, unspecified; Z79.899 Other long term (current) drug therapy; Z20.822 Contact with and (suspected) exposure to COVID-19
CPT/HCPCS: 36415; 71045; 74176; 80053; 81001; 83605; 85025; 85610; 87040; 87502; 87635; 93005; 94640; 96360; 99284

== ENCOUNTER 2021-12-11 14:25 | Inpatient (IN) | payer MEDICAID, SELFPAY ==
[2021-12-11] VITALS (8 sets, daily range): BP systolic 93–111; BP diastolic 50–67; PULSE 111–150; RESP 16–37; TEMP 37.1–40.6; O2SAT 93–100; BMI 32.1
--- NOTE | ~2021-12-11 | CT_ITS ---
EXAMINATION: CT HEAD WITHOUT CONTRAST CLINICAL INFORMATION: Altered mental status COMPARISON: None. TECHNIQUE: Contiguous axial imaging was performed from the skull base to vertex without intravenous administration of contrast. Coronal and sagittal reformatted images are performed at the CT scanner. [This CT examination was performed using dose optimization techniques as appropriate, variously including the following: *Automated exposure control *Adjustment of mA and/or kV according to patient size (this includes techniques or standardized protocols for targeted exams where dose is matched to indication/reason for exam; i.e. extremities or head) *Use of iterative reconstruction technique] DLP: 705.98+5.12 mGy-cm. FINDINGS: There is no evidence of acute intracranial hemorrhage or territorial infarction. No abnormal mass-effect or midline shift is seen. [place] to white matter differentiation is well preserved. No extra-axial fluid collections are identified. There is generalized global volume loss. There is mild prominence of the ventricles and the sulci . There is mild hypodensity of the periventricular white matter due to chronic small vessel ischemic disease. There are vascular calcifications of the internal carotid arteries bilaterally. There is no osseous abnormality. Small retention cyst at the posterior right maxillary sinus. CT/CT head/brain wo IV con IMPRESSION: No acute intracranial pathology.
--- NOTE | ~2021-12-11 | CT_ITS ---
EXAMINATION: CT CHEST, ABDOMEN AND PELVIS WITHOUT CONTRAST CLINICAL INFORMATION: Altered mental status. COMPARISON: CT of the abdomen and pelvis 09/09/2021. TECHNIQUE: Multidetector volumetric CT imaging of the chest, abdomen and pelvis was obtained without oral or intravenous contrast. Coronal and sagittal reformatted images are performed at CT scanner. [This CT examination was performed using dose optimization techniques as appropriate, variously including the following: *Automated exposure control *Adjustment of mA and/or kV according to patient size (this includes techniques or standardized protocols for targeted exams where dose is matched to indication/reason for exam; i.e. extremities or head) *Use of iterative reconstruction technique] DLP: 601.22 + 1432.13 + 7.31 + 7.31 mGy-cm. FINDINGS: There is breathing motion which limits study. CT CHEST: LUNGS: The lungs are clear with no evidence of inflammation or nodules. MEDIASTINUM: There is no mediastinal mass or significant lymphadenopathy. Heart size is normal. Heavy volume of coronary artery calcification. No aneurysm of aorta. Scattered vascular wall calcifications of aorta and great vessels. PLEURA: There is no pleural effusion. No pleural mass or thickening. AXILLA: No lymphadenopathy. CT ABDOMEN AND PELVIS: LIVER, GALLBLADDER AND BILIARY TREE: Liver is mildly enlarged measuring 21 cm superior/inferior. No hepatic lesion or intrahepatic bile duct dilatation. Multiple small calcified gallstones within the gallbladder. No edema of the gallbladder or bile duct dilatation. PANCREAS: Pancreas is atrophic. No inflammation or mass. SPLEEN: Spleen mildly enlarged measuring 14 cm superior/inferior. ADRENAL GLANDS: Adrenal glands are normal in size. No focal mass. KIDNEYS AND URETERS: Stable appearance of kidney since prior CAT scan 09/09/2021. Small hyperattenuating lesion in the lower pole of the left kidney, unchanged. There are a few tiny nonobstructive stones in the left kidney, unchanged since prior study. No ureteral calculi or hydronephrosis. BLADDER: Bladder is empty. GASTROINTESTINAL TRACT: There is gaseous distention of the colonic bowel loops. There is a large volume of stool in the sigmoid colon through the rectum. There is mild bowel wall thickening in this segment of the colon without significant edema in the surrounding mesenteric fat. Volume of stool is substantially increased since study of 09/09/2021. Gaseous distention of the proximal colon is similar to prior study. There is no air in the bowel wall. No portal venous gas. The appendix is normal. Air and fluid in nondilated small bowel loops. The stomach is unremarkable. No hiatal hernia. MESENTERY: No focal inflammation. No free fluid. No free air. ABDOMINAL WALL: No significant hernia is appreciated. LYMPH NODES: No significant lymphadenopathy. VASCULAR: Vascular calcifications throughout the abdomen and pelvis. PELVIC VISCERA: Unremarkable. OSSEOUS STRUCTURES: Multilevel degenerative spondylosis of the spine. CT/CT abdomen pelvis wo IV con IMPRESSION: 1. Large volume of stool in the rectum and sigmoid with mild bowel wall thickening raising a question of stercoral colitis, though no surrounding inflammation of the mesentery. Volume of stool has increased since the exam of 09/09/2021. 2. Hepatosplenomegaly. 3. Cholelithiasis. 4. Small nonobstructive left renal stones. No hydronephrosis. 5. Redemonstration of small hyperattenuating lesion in the lower pole of the left kidney, likely a hypodense cyst. This is a Bosniak 2 lesion. No further workup would be suggested. 6. No acute abnormality of the chest.
--- NOTE | ~2021-12-11 | XR_ITS ---
EXAMINATION: XR CHEST CLINICAL INFORMATION: Short of breath COMPARISON: 12/11/2021 TECHNIQUE: Frontal view of the chest was obtained. FINDINGS: Right internal jugular central venous catheter terminates near the cavoatrial junction. Cardiac leads overlie the chest. Lung volumes are low. Hazy opacities at both lung bases. No pleural effusion or pneumothorax. The cardiomediastinal silhouette is within normal limits. XR/XR chest 1V IMPRESSION: Low lung volumes. Hazy bibasilar opacities likely representing atelectasis, though pneumonia not excluded.
--- NOTE | ~2021-12-11 | XR_ITS ---
EXAMINATION: XR CHEST CLINICAL INFORMATION: Intubation. COMPARISON: Chest radiograph dated from 12/12/2021 at 5:37 AM. TECHNIQUE: Frontal view of the chest was obtained. FINDINGS: The endotracheal tube terminates at 2.5 cm above the hai. An enteric tube terminates at the level of the stomach. A right IJ CVC projects over the cavoatrial junction, similar to prior. EKG wires overlie the chest. Stable appearance of the cardiomediastinal silhouette. Worsening pulmonary aeration with increased multifocal patchy and hazy airspace opacities. Trace amount of bilateral pleural fluid, not convincingly changed. No pneumothorax. No acute osseous abnormalities. XR/XR chest 1V IMPRESSION: Endotracheal tube terminates at 2.5 cm above the hai. Worsening pulmonary aeration with increased multifocal airspace opacities.
--- NOTE | ~2021-12-11 | XR_ITS ---
EXAMINATION: XR CHEST CLINICAL INFORMATION: Status post Central line placement COMPARISON: Chest CT 12/11/2021 and chest x-ray 09/09/2021 TECHNIQUE: Frontal view of the chest was obtained. FINDINGS: Cardiac silhouette is normal in size. Right-sided jugular catheter noted with tip terminating within the proximal right atrium. The lungs are adequately aerated. There is no lobar consolidation. No pleural effusion or pneumothorax. XR/XR chest 1V IMPRESSION: No pneumothorax status post catheter placement.
--- NOTE | 2021-12-11 14:35 | ECG_ITS ---
Test Reason : tachy Blood Pressure : / mmHG Vent. Rate : 147 BPM Atrial Rate : 147 BPM P-R Int : 152 ms QRS Dur : 092 ms QT Int : 286 ms P-R-T Axes : 000 -83 068 degrees QTc Int : 447 ms Sinus tachycardia Left axis deviation Inferior infarct , age undetermined Anterolateral infarct , age undetermined Abnormal ECG When compared with ECG of 09-SEP-2021 12:47, Sinus tachycardia has replaced Sinus rhythm ST now depressed in Lateral leads T wave inversion now evident in Lateral leads Referred By: Rossy Wyatt Electronically Signed By:MARY VELASCO
--- NOTE | 2021-12-11 14:46 | ED_ITS ---
HPI - Altered Mental Status General Chief Complaint: Altered Mental Status <NAMITA Fairchild - Last Filed: 12/11/21 21:08> Stated Complaint: PER EMS SEPSIS ALERT <NAMITA Fairchild - Last Filed: 12/11/21 21:08> Time Seen by Provider: 12/11/21 14:35 <NAMITA Fairchild - Last Filed: 12/11/21 21:08> Source: EMS <NAMITA Fairchild - Last Filed: 12/11/21 21:08> Mode of arrival: EMS <NAMITA Fairchild - Last Filed: 12/11/21 21:08> Limitations: altered mental status <NAMITA Fairchild Last Filed: 12/11/21 21:08> History of Present Illness HPI narrative: 61-year-old male with a past medical history anxiety, bipolar, COPD, diabetes, GERD, HTN, HLD, major depressive disorder, KILEY, presenting to ED via EMS from [facility] for reported AMS, tachycardia, tachypnea, hyperglycemia, and fever of 101.4. At baseline patient is wheelchair bound and conversational HPI limited due to patient's acute mental status. <NAMITA Fairchild - Last Filed: 12/11/21 21:08> MD complaint: altered mental status <NAMITA Fairchild - Last Filed: 12/11/21 21:08> Onset (ago): hour(s) <NAMITA Fairchild - Last Filed: 12/11/21 21:08> Related Data Home Medications: Home Medications Medication Instructions Recorded Confirmed acetaminophen 325 mg tablet 650 mg PO Q6H 09/09/21 12/11/21 amlodipine 10 mg tablet 10 mg PO DAILY 09/09/21 12/11/21 aspirin 81 mg chewable tablet 81 mg PO DAILY 09/09/21 12/11/21 cetirizine 10 mg tablet 10 mg PO DAILY 09/09/21 12/11/21 clozapine 50 mg tablet 50 mg PO BEDTIME 09/09/21 12/11/21 docusate sodium 100 mg tablet 100 mg PO BID 09/09/21 12/11/21 dulaglutide 4.5 mg/0.5 mL 4.5 mg subcut [place] 09/09/21 12/11/21 subcutaneous pen injector haloperidol 2 mg tablet 8 mg PO BEDTIME 09/09/21 12/11/21 haloperidol 5 mg tablet 5 mg PO DAILY PRN Psychosis 09/09/21 12/11/21 isosorbide mononitrate 30 mg 30 mg PO DAILY 09/09/21 12/11/21 tablet,extended release 24 hr lactulose 10 gram/15 mL oral 20 g PO BID 09/09/21 12/11/21 solution levothyroxine 25 mcg tablet 25 mcg PO DAILY@0600 09/09/21 12/11/21 lorazepam 0.5 mg tablet (Ativan) 0.25 mg PO Q8H PRN Anxiety 09/09/21 12/11/21 magnesium chloride 71.5 mg 143 mg PO DAILY 09/09/21 12/11/21 (magnesium chloride) tablet,delayed release magnesium hydroxide 400 mg/5 mL 400 mg PO BEDTIME 09/09/21 12/11/21 oral suspension (Milk of Magnesia) metformin 1,000 mg tablet 1,000 mg PO BID 09/09/21 12/11/21 metoprolol tartrate 50 mg tablet 50 mg PO DAILY 09/09/21 12/11/21 mirtazapine 15 mg tablet 15 mg PO BEDTIME 09/09/21 12/11/21 niacin 500 mg tablet 500 mg PO DAILY 09/09/21 12/11/21 omeprazole 20 mg tablet,delayed 20 mg PO DAILY 09/09/21 12/11/21 release rosuvastatin 40 mg tablet 40 mg PO BEDTIME 09/09/21 12/11/21 sennosides 8.6 mg tablet (senna) 8.6 mg PO BEDTIME 09/09/21 12/11/21 simethicone 80 mg chewable tablet 80 mg PO TIDAC 09/09/21 12/11/21 topiramate 100 mg tablet (Topamax) 100 mg PO BID 09/09/21 12/11/21 valproic acid (as sodium salt) 250 1,250 mg PO BID 09/09/21 12/11/21 mg/5 mL oral solution insulin lispro 100 unit/mL 1 sliding scale dose subcut 12/11/21 12/11/21 subcutaneous pen USEASDIRECTD lidocaine 4 % topical patch 1 patch topical DAILY 12/11/21 12/11/21 nystatin 100,000 unit/gram topical 1 appl topical BID 12/11/21 12/11/21 powder <NAMITA Fairchild - Last Filed: 12/11/21 21:08> Allergies/Adverse Reactions: Allergies Allergy/AdvReac Type Severity Reaction Status Date / Time Sulfa (Sulfonamide Allergy Unknown Verified 12/11/21 15:09 Antibiotics) thiothixene Allergy Unknown Verified 12/11/21 15:12 anticholinergics Allergy Unknown Uncoded 12/11/21 15:14 trihexphenidyl Allergy Unknown Uncoded 12/11/21 15:13 <NAMITA Fairchild - Last Filed: 12/11/21 21:08> Review of Systems Review of Systems: Constitutional: + Fever Neuro: +AMS ROS limited due to patient's acute mental status <NAMITA Fairchild - Last Filed: 12/11/21 21:08> Yes all other systems are reviewed and are negative <NAMITA Fairchild - Last Filed: 12/11/21 21:08> Constitutional: Constitutional: Reports as per HPI <NAMITA Fairchild - Last Filed: 12/11/21 21:08> PMFSH Past Medical History Attestation statement: The following information was validated with the patient. <NAMITA Fairchild - Last Filed: 12/11/21 21:08> Medical History: Medical History Anxiety Atherosclerotic heart disease of [place] coronary artery without angina pectoris Bipolar disorder COPD (chronic obstructive pulmonary disease) Delusional disorder Diabetes Dysphagia GERD (gastroesophageal reflux disease) HTN (hypertension) Hyperlipidemia Insomnia MDD (major depressive disorder) Obesity KILEY (obstructive sleep apnea) PTSD (post-traumatic stress disorder) Schizoaffective disorder <NAMITA Fairchild - Last Filed: 12/11/21 21:08> Social History Social History: Social History Advance Directives: No Advance Directives Information Provided: No <NAMITA Fairchild Last Filed: 12/11/21 21:08> Physical Exam ED Vital Signs: Vital Signs - 24 hr 12/11/21 14:53 12/11/21 16:35 12/11/21 17:54 Temperature 105.0 F H 104.9 F H 100.4 F Pulse Rate 150 H 143 H 119 H Respiratory Rate 20 24 H 16 Blood Pressure 95/62 93/66 110/60 Pulse Oximetry 100 95 97 Oxygen Delivery Method Non-Rebreather Mask Oxymask Oxymask Oxygen Flow Rate 5 12/11/21 18:57 12/11/21 20:09 12/11/21 21:36 Temperature 101.3 F H 100.4 F 99.0 F Pulse Rate 111 H 118 H 116 H Respiratory Rate 37 H 18 30 H Blood Pressure 108/64 111/67 109/50 L Pulse Oximetry 97 97 93 Oxygen Delivery Method Nasal Cannula Nasal Cannula Nasal Cannula Oxygen Flow Rate 2 2 2.5 BMI result Body Mass Index 32.1 <NAMITA Fairchild - Last Filed: 12/11/21 21:08> Vital Signs - 24 hr 12/11/21 14:53 12/11/21 16:35 12/11/21 17:54 Temperature 105.0 F H 104.9 F H 100.4 F Pulse Rate 150 H 143 H 119 H Respiratory Rate 20 24 H 16 Blood Pressure 95/62 93/66 110/60 Pulse Oximetry 100 95 97 Oxygen Delivery Method Non-Rebreather Mask Oxymask Oxymask Oxygen Flow Rate 5 12/11/21 18:57 12/11/21 20:09 12/11/21 21:36 Temperature 101.3 F H 100.4 F 99.0 F Pulse Rate 111 H 118 H 116 H Respiratory Rate 37 H 18 30 H Blood Pressure 108/64 111/67 109/50 L Pulse Oximetry 97 97 93 Oxygen Delivery Method Nasal Cannula Nasal Cannula Nasal Cannula Oxygen Flow Rate 2 2 2.5 BMI result Body Mass Index 32.1 <Davie Link MD - Last Filed: 12/11/21 21:55> Const General: patient obtunded <NAMITA Fairchild - Last Filed: 12/11/21 21:08> Orientation/consciousness: patient obtunded <NAMITA Fairchild - Last Filed: 12/11/21 21:08> HENMT Head: Yes normal to inspection and Yes atraumatic <NAMITA Fairchild - Last Filed: 12/11/21 21:08> Ears: hearing grossly normal bilaterally <Lorna Loya PA - Last Filed: 12/11/21 21:08> General nose exam: Normal external nose present <Lorna Loya PA - Last Filed: 12/11/21 21:08> Face and sinus: Yes normal facial exam <Lorna Loya PA - Last Filed: 12/11/21 21:08> Eyes General: appearance normal, both eyes and all related structures <Lorna Loya PA - Last Filed: 12/11/21 21:08> Pupils: Equal, round and reactive pupils present <Lorna Loya PA - Last Filed: 12/11/21 21:08> EOM: EOMs intact bilaterally <Lorna Loya PA - Last Filed: 12/11/21 21:08> Neck Neck: Yes normal visual inspection <Lorna Loya PA - Last Filed: 12/11/21 21:08> Resp Effort & Inspection: normal respiratory effort and no respiratory distress <Lorna Loya PA - Last Filed: 12/11/21 21:08> Auscultation: rhonchi throughout <Lorna Loya PA - Last Filed: 12/11/21 21:08> Cardio Rate: tachycardic <Lorna Loya PA - Last Filed: 12/11/21 21:08> Rhythm: regular rhythm <Lorna Loya PA - Last Filed: 12/11/21 21:08> Heart sounds: S1 normal heart sound present and S2 normal heart sound present <Lorna Loya PA - Last Filed: 12/11/21 21:08> GI Inspection: Yes normal to inspection <Lorna Loya PA - Last Filed: 12/11/21 21:08> Palpation (GI): Soft to palpation, nontender, no guarding and not rigid <Lorna Loya PA - Last Filed: 12/11/21 21:08> Skin Rashes: no rashes <Lorna Loya PA - Last Filed: 12/11/21 21:08> Wounds: no wounds <Lorna Loya PA - Last Filed: 12/11/21 21:08> Neuro General: patient obtunded <Lorna Loya PA - Last Filed: 12/11/21 21:08> Cranial nerves: Yes Equal, round and reactive pupils present <NAMITA Fairchild - Last Filed: 12/11/21 21:08> Extrem General: Yes normal to inspection and Yes no pedal edema <NAMITA Fairchild - Last Filed: 12/11/21 21:08> Course Course Course Narrative: -1615--pushed 6 mg of IV adenosine with only 2 P waves seen when rhythm broke. Will push 12 mg for further evaluation of underlying rhythm > after 12 mg of adenosine no true appreciable change, a few P-waves seen, no atrial flutter > suspect tachycardia from underlying fever/infection will not treat with rate control medications at this time -1629--no leukocytosis. H&H stable. pH 7.28 with CO2 30 -ammonia 23. Lactic acid of 3.7 CT head/brain wo IV con IMPRESSION: No acute intracranial pathology. ? -patient into a quick episode of V-tach which spontaneously broke > started on Amiodarone push and drip -1635--glucose elevated to 646, potassium 3.6 > will give 20 mEq of IV potassium and 5 units of IV insulin. Acetone moderate -BUN elevated to 42, creatinine 2.0. Troponin 39.6 >> will obtain [address] chest wo IV con/CT abdomen pelvis wo IV con IMPRESSION: 1. Large volume of stool in the rectum and sigmoid with mild bowel wall thickening raising a question of stercoral colitis, though no surrounding inflammation of the mesentery. Volume of stool has increased since the exam of 09/09/2021. ? 2. Hepatosplenomegaly. ? 3. Cholelithiasis. ? 4. Small nonobstructive left renal stones. No hydronephrosis. ? 5. Redemonstration of small hyperattenuating lesion in the lower pole of the left kidney, likely a hypodense cyst. This is a Bosniak 2 lesion. No further workup would be suggested. ? 6. No acute abnormality of the chest. > IV Vancomycin and Flagyl added as well as remaining sepsis fluids due to no evidence of fluid overload on imaging. 30 mg/kg of IVF based on ideal body weight is 2,220 cc -1719--patient responding to commands > needs central line >> tried to contact patients Guardian Radha Alvares, no answer and unable to leave voicemail due to full mailbox. Two physician consent signed and in patients chart -Spoke with intensivitst Dr. Ortega who evaluated patient. Source of fever unknown, obtaining respiratory viral panel. ? Hypoxia secondary to PE, V/Q scan unavailable at this time. If viral PCR negative ? LP to r/o men ingitis/encephalitis although patient becoming more responsive. Amiodarone drip stopped -1904-obtain records from [facility] patient was discharged on 09/22/2021 for similar presentation & fever of unknown etiology -patient awake and alert, asking for 7 UP. Think patient is suitable for the floor, case discussed with Dr. Chavarria, will repeat BMP, give additional insulin, magnesium, and potassium -2056--patient did not receive insulin prior to repeat BMP. Improvement in bicarb from 11-13, mild improvement in MARCEL. POC 580 however likely incorrect will obtain POC >> 441 > additional 5U IV insulin given. Patient admitted to floor for further management <NAMITA Fairchild - Last Filed: 12/11/21 21:08> -1615--pushed 6 mg of IV adenosine with only 2 P waves seen when rhythm broke. Will push 12 mg for further evaluation of underlying rhythm > after 12 mg of adenosine no true appreciable change, a few P-waves seen, no atrial flutter > suspect tachycardia from underlying fever/infection will not treat with rate control medications at this time -1629--no leukocytosis. H&H stable. pH 7.28 with CO2 30 -ammonia 23. Lactic acid of 3.7 CT head/brain wo IV con IMPRESSION: No acute intracranial pathology. ? -patient into a quick episode of V-tach which spontaneously broke > started on Amiodarone push and drip -1635--glucose elevated to 646, potassium 3.6 > will give 20 mEq of IV potassium and 5 units of IV insulin. Acetone moderate -BUN elevated to 42, creatinine 2.0. Troponin 39.6 >> will obtain [address] chest wo IV con/CT abdomen pelvis wo IV con IMPRESSION: 1. Large volume of stool in the rectum and sigmoid with mild bowel wall thickening raising a question of stercoral colitis, though no surrounding inflammation of the mesentery. Volume of stool has increased since the exam of 09/09/2021. ? 2. Hepatosplenomegaly. ? 3. Cholelithiasis. ? 4. Small nonobstructive left renal stones. No hydronephrosis. ? 5. Redemonstration of small hyperattenuating lesion in the lower pole of the left kidney, likely a hypodense cyst. This is a Bosniak 2 lesion. No further workup would be suggested. ? 6. No acute abnormality of the chest. > IV Vancomycin and Flagyl added as well as remaining sepsis fluids due to no evidence of fluid overload on imaging. 30 mg/kg of IVF based on ideal body weight is 2,220 cc -1719--patient responding to commands > needs central line >> tried to contact patients Guardian Radha Alvares, no answer and unable to leave voicemail due to full mailbox. Two physician consent signed and in patients chart -Spoke with intensivitst Dr. Ortega who evaluated patient. Source of fever unknown, obtaining respiratory viral panel. ? Hypoxia secondary to PE, V/Q scan unavailable at this time. If viral PCR negative ? LP to r/o meningitis/encephalitis although patient becoming more responsive. Amiodarone drip stopped -1904-obtain records from [facility] patient was discharged on 2021 for similar presentation & fever of unknown etiology -patient awake and alert, asking for 7 UP. Think patient is suitable for the floor, case discussed with Dr. Chavarria, will repeat BMP, give additional insulin, magnesium, and potassium -2056--patient did not receive insulin prior to repeat BMP. Improvement in bicarb from 11-13, mild improvement in MARCEL. POC 580 however likely incorrect wi ll obtain POC >> 441 > additional 5U IV insulin given. Patient admitted to floor for further management Attending physician: Care of this patient was supervised by me. Patient had a tachycardia without apparent P waves and was given adenosine, 6 mg then 12 mg without apparent flutter waves once there was a significant pause. The patient did restart with sinus beats before it sped up into a rhythm which again could not be interpreted, likely sinus tachycardia associated with high fever. The patient was bolused saline. The patient had a brief run of V-tach which was self-limited. Amiodarone IV bolus and drip was started. A central venous catheter was placed by me in the right IJ. patient did improve with treatment and became more interactive. His initial VBG showed metabolic acidosis with a pH of about 7.2. He also is hyperglycemic. He was treated with insulin IV. Broad-spectrum antibiotics were given. Fortunately the patient did improve clinically and is no longer on the amiodarone drip, is being admitted to the medical floor. Critical care time for this life-threatening illness exclusive of all other billable procedures was approximately 55 minutes including initial evaluation of the patient, ordering tests, x-ray interpretation, EKG interpretation, medical consultation, documentation, reevaluation. <Davie Link MD - Last Filed: 12/11/21 21:55> MDM - Altered Mental Status MDM Narrative Medical decision making narrative: 61-year-old male with a past medical history anxiety, bipolar, COPD, diabetes, GERD, HTN, HLD, major depressive disorder, KILEY, presenting to ED via EMS from [facility] for reported AMS, tachycardia, tachypnea, hyperglycemia, and afebrile. On exam febrile to 105 rectally, tachypneic, tachycardic, EKG showing wide complex tachycardia, diffuse rhonchi noted throughout, no appreciable pedal edema. Concern for sepsis vs viral syndrome. Rule out arrhythmia vs pulmonary edema vs CHF vs other infectious/metabolic etiologies Avoiding aggressive IVF due to concern of fluid overload Plan: EKG, labs, UA, CXR, head/chest/abdomen CT, lactic/blood cultures, IV antibiotics, admission <NAMITA Fairchild - Last Filed: 12/11/21 21:08> Differential Diagnosis Differential diagnosis: Likely altered mental status, encephalopathy, renal failure and sepsis <NAMITA Fairchild - Last Filed: 12/11/21 21:08> Medical Records Attestation: I reviewed the patient's medical records. <NAMITA Fairchild - Last Filed: 12/11/21 21:08> Lab Data Attestation: I reviewed the patient's lab results. <NAMITA Fairchild - Last Filed: 12/11/21 21:08> Result diagrams: : 12/11/21 16:03 12/11/21 20:21 <NAMITA Fairchild - Last Filed: 12/11/21 21:08> Labs: Lab Results 12/11/21 12/11/21 12/11/21 Range/Units 16:00 16:00 16:00 WBC (4.8-10.8) X10*3/uL RBC (4.60-5.80) X10*6/uL Hgb (14.0-18.0) g/dl Hct (42.0-52.0) % MCV (80.0-98.0) fL MCH (27.0-33.0) pg MCHC (31.0-36.0) g/dl RDW (11.0-16.0) % Plt Count (160-400) X10*3/uL MPV (9.4-12.4) fL Immature Gran % (Auto) (0.0-0.4) % Neut % (Auto) (45-73) % Lymph % (Auto) (20-40) % [place] % (Auto) (2-11) % Eos % (Auto) (0-4) % Baso % (Auto) (0-2) % Lymph # (Auto) (1.2-4.9) X10*3/uL [place] # (Auto) (0.1-1.2) X10*3/uL Eos # (Auto) (0.0-0.4) X10*3/uL Baso # (Auto) (0.0-0.2) X10*3/uL Abs Immat Gran (auto) (0.00-0.03) X10*3/uL Absolute Neuts (auto) (2.0-8.3) x10*3/uL Absolute Nucleated RBC (0.0-0.012) X10*3/uL Nucleated RBC % (auto) (0.0-0.2) /100WBC ESR (0-15) MM/HR PT 16.8 H (10.0-13.1) SEC INR 1.4 H (0.9-1.1) APTT 30.7 (26.0-36.4) SEC O2 Saturation % ABG pH at Pt Temp (7.35-7.45) ABG pCO2 at Pt Temp (32-45) mmHg ABG pO2 at Pt Temp (83-108) mmHg ABG HCO3 (22-26) mmol/L ABG Base Excess (Actual) mmol/L VBG pH (7.32-7.43) VBG pCO2 mmHg VBG pO2 mmHg VBG HCO3 (22-26) mmol/L VBG O2 Saturation % VBG Base Excess mmol/L Sodium (135-145) mmol/L Potassium (3.3-5.1) mmol/L Chloride (96-108) mmol/L Carbon Dioxide (22-29) mmol/L Anion Gap (12-20) BUN (9-16) mg/dL Creatinine (0.5-1.4) mg/dL Estim Creat Clear Calc Estimated GFR POC Glucose (60-115) mg/dL Random Glucose (60-115) mg/dL Lactic Acid 3.7 H* (0.5-2.0) mmol/L Lactic Acid F/U @ 2Hr (0.5-2.0) mmol/L Calcium (8.4-10.2) mg/dL Magnesium (1.6-2.6) mg/dL Total Bilirubin (0.0-1.0) mg/dL Direct Bilirubin (0.0-0.5) mg/dL AST (5-37) U/L ALT (0-40) U/L Alkaline Phosphatase (39-117) U/L Ammonia (13-55) umol/L Total Creatine Kinase (38-174) U/L Troponin I High Sens (<3.5-35.0) ng/L C-Reactive Protein (< or = 0.50) mg/dL B-Natriuretic Peptide (<100) pg/mL Total Protein (6.5-8.0) g/dL Albumin (3.5-5.0) g/dL Lipase (8-78) U/L Procalcitonin ng/mL Urine Color Urine Appearance Urine pH (5.0-9.0) Ur Specific [place] (1.005-1.025) Urine Protein (Neg-Trace) mg/dL Urine Glucose (UA) (Negative) mg/dL Urine Ketones (Negative) mg/dL Urine Blood (Negative) Urine Nitrite (Negative) Ur Leukocyte Esterase (Negative) Urine RBC (0-2) /HPF Urine WBC (0-5) /HPF Ur Squamous Epith Cells (0-2) /HPF Urine Bacteria (None Seen) Hyaline Casts (0-2) /LPF Granular Casts Acetone, Qual Moderate H (Negative) COVID-19 (TAIWO) (Negative) COVID-19 Clin Com Influenza Type A (PCR) (Negative) Influenza Type B (PCR) (Negative) RSV RNA Qual (PCR) (Negative) SARS-CoV-2 RNA (RT-PCR) (Negative) 12/11/21 12/11/21 12/11/21 Range/Units 16:01 16:02 16:02 WBC (4.8-10.8) X10*3/uL RBC (4.60-5.80) X10*6/uL Hgb (14.0-18.0) g/dl Hct (42.0-52.0) % MCV (80.0-98.0) fL MCH (27.0-33.0) pg MCHC (31.0-36.0) g/dl RDW (11.0-16.0) % Plt Count (160-400) X10*3/uL MPV (9.4-12.4) fL Immature Gran % (Auto) (0.0-0.4) % Neut % (Auto) (45-73) % Lymph % (Auto) (20-40) % [place] % (Auto) (2-11) % Eos % (Auto) (0-4) % Baso % (Auto) (0-2) % Lymph # (Auto) (1.2-4.9) X10*3/uL [place] # (Auto) (0.1-1.2) X10*3/uL Eos # (Auto) (0.0-0.4) X10*3/uL Baso # (Auto) (0.0-0.2) X10*3/uL Abs Immat Gran (auto) (0.00-0.03) X10*3/uL Absolute Neuts (auto) (2.0-8.3) x10*3/uL Absolute Nucleated RBC (0.0-0.012) X10*3/uL Nucleated RBC % (auto) (0.0-0.2) /100WBC ESR (0-15) MM/HR PT (10.0-13.1) SEC INR (0.9-1.1) APTT (26.0-36.4) SEC O2 Saturation % ABG pH at Pt Temp (7.35-7.45) ABG pCO2 at Pt Temp (32-45) mmHg ABG pO2 at Pt Temp (83-108) mmHg ABG HCO3 (22-26) mmol/L ABG Base Excess (Actual) mmol/L VBG pH (7.32-7.43) VBG pCO2 mmHg VBG pO2 mmHg VBG HCO3 (22-26) mmol/L VBG O2 Saturation % VBG Base Excess mmol/L Sodium 140 (135-145) mmol/L Potassium 3.6 (3.3-5.1) mmol/L Chloride 113 H (96-108) mmol/L Carbon Dioxide 11 L (22-29) mmol/L Anion Gap 20 (12-20) BUN 42 H D (9-16) mg/dL Creatinine 2.00 H (0.5-1.4) mg/dL Estim Creat Clear Calc 40.8 Estimated GFR 34 POC Glucose (60-115) mg/dL Random Glucose 646 H* (60-115) mg/dL Lactic Acid (0.5-2.0) mmol/L Lactic Acid F/U @ 2Hr (0.5-2.0) mmol/L Calcium 7.2 L D (8.4-10.2) mg/dL Magnesium 1.9 (1.6-2.6) mg/dL Total Bilirubin 0.4 (0.0-1.0) mg/dL Direct Bilirubin 0.2 (0.0-0.5) mg/dL AST 11 (5-37) U/L ALT 9 (0-40) U/L Alkaline Phosphatase 45 D (39-117) U/L Ammonia 23 (13-55) umol/L Total Creatine Kinase 100 (38-174) U/L Troponin I High Sens 39.6 H (<3.5-35.0) ng/L C-Reactive Protein 1.31 H (< or = 0.50) mg/dL B-Natriuretic Peptide (<100) pg/mL Total Protein 6.1 L (6.5-8.0) g/dL Albumin 3.1 L (3.5-5.0) g/dL Lipase 20 (8-78) U/L Procalcitonin ng/mL Urine Color Urine Appearance Urine pH (5.0-9.0) Ur Specific [place] (1.005-1.025) Urine Protein (Neg-Trace) mg/dL Urine Glucose (UA) (Negative) mg/dL Urine Ketones (Negative) mg/dL Urine Blood (Negative) Urine Nitrite (Negative) Ur Leukocyte Esterase (Negative) Urine RBC (0-2) /HPF Urine WBC (0-5) /HPF Ur Squamous Epith Cells (0-2) /HPF Urine Bacteria (None Seen) Hyaline Casts (0-2) /LPF Granular Casts Acetone, Qual (Negative) COVID-19 ([facility]) (Negative) COVID-19 Clin Com Influenza Type A (PCR) (Negative) Influenza Type B (PCR) (Negative) RSV RNA Qual (PCR) (Negative) SARS-CoV-2 RNA (RT-PCR) (Negative) 12/11/21 12/11/21 12/11/21 Range/Units 16:02 16:03 16:03 WBC 10.1 (4.8-10.8) X10*3/uL RBC 5.45 D (4.60-5.80) X10*6/uL Hgb 15.1 D (14.0-18.0) g/dl Hct 46.9 D (42.0-52.0) % MCV 86.1 (80.0-98.0) fL MCH 27.7 (27.0-33.0) pg MCHC 32.2 (31.0-36.0) g/dl RDW 15.3 (11.0-16.0) % Plt Count 192 (160-400) X10*3/uL MPV 11.0 (9.4-12.4) fL Immature Gran % (Auto) 0.4 (0.0-0.4) % Neut % (Auto) 65.6 (45-73) % Lymph % (Auto) 21.2 (20-40) % [place] % (Auto) 12.4 H (2-11) % Eos % (Auto) 0.0 (0-4) % Baso % (Auto) 0.4 (0-2) % Lymph # (Auto) 2.1 (1.2-4.9) X10*3/uL [place] # (Auto) 1.3 H (0.1-1.2) X10*3/uL Eos # (Auto) 0.0 (0.0-0.4) X10*3/uL Baso # (Auto) 0.0 (0.0-0.2) X10*3/uL Abs Immat Gran (auto) 0.04 H (0.00-0.03) X10*3/uL Absolute Neuts (auto) 6.6 (2.0-8.3) x10*3/uL Absolute Nucleated RBC 0.000 (0.0-0.012) X10*3/uL Nucleated RBC % (auto) 0.0 (0.0-0.2) /100WBC ESR (0-15) MM/HR PT (10.0-13.1) SEC INR (0.9-1.1) APTT (26.0-36.4) SEC O2 Saturation % ABG pH at Pt Temp (7.35-7.45) ABG pCO2 at Pt Temp (32-45) mmHg ABG pO2 at Pt Temp (83-108) mmHg ABG HCO3 (22-26) mmol/L ABG Base Excess (Actual) mmol/L VBG pH (7.32-7.43) VBG pCO2 mmHg VBG pO2 mmHg VBG HCO3 (22-26) mmol/L VBG O2 Saturation % VBG Base Excess mmol/L Sodium (135-145) mmol/L Potassium (3.3-5.1) mmol/L Chloride (96-108) mmol/L Carbon Dioxide (22-29) mmol/L Anion Gap (12-20) BUN (9-16) mg/dL Creatinine (0.5-1.4) mg/dL Estim Creat Clear Calc Estimated GFR POC Glucose (60-115) mg/dL Random Glucose (60-115) mg/dL Lactic Acid (0.5-2.0) mmol/L Lactic Acid F/U @ 2Hr (0.5-2.0) mmol/L Calcium (8.4-10.2) mg/dL Magnesium (1.6-2.6) mg/dL Total Bilirubin (0.0-1.0) mg/dL Direct Bilirubin (0.0-0.5) mg/dL AST (5-37) U/L ALT (0-40) U/L Alkaline Phosphatase (39-117) U/L Ammonia (13-55) umol/L Total Creatine Kinase (38-174) U/L Troponin I High Sens (<3.5-35.0) ng/L C-Reactive Protein (< or = 0.50) mg/dL B-Natriuretic Peptide 82 (<100) pg/mL Total Protein (6.5-8.0) g/dL Albumin (3.5-5.0) g/dL Lipase (8-78) U/L Procalcitonin 0.30 ng/mL Urine Color Urine Appearance Urine pH (5.0-9.0) Ur Specific [place] (1.005-1.025) Urine Protein (Neg-Trace) mg/dL Urine Glucose (UA) (Negative) mg/dL Urine Ketones (Negative) mg/dL Urine Blood (Negative) Urine Nitrite (Negative) Ur Leukocyte Esterase (Negative) Urine RBC (0-2) /HPF Urine WBC (0-5) /HPF Ur Squamous Epith Cells (0-2) /HPF Urine Bacteria (None Seen) Hyaline Casts (0-2) /LPF Granular Casts Acetone, Qual (Negative) COVID-19 (TAIWO) (Negative) COVID-19 Clin Com Influenza Type A (PCR) (Negative) Influenza Type B (PCR) (Negative) RSV RNA Qual (PCR) (Negative) SARS-CoV-2 RNA (RT-PCR) (Negative) 12/11/21 12/11/21 12/11/21 Range/Units 16:03 16:04 16:12 WBC (4.8-10.8) X10*3/uL RBC (4.60-5.80) X10*6/uL Hgb (14.0-18.0) g/dl Hct (42.0-52.0) % MCV (80.0-98.0) fL MCH (27.0-33.0) pg MCHC (31.0-36.0) g/dl RDW (11.0-16.0) % Plt Count (160-400) X10*3/uL MPV (9.4-12.4) fL Immature Gran % (Auto) (0.0-0.4) % Neut % (Auto) (45-73) % Lymph % (Auto) (20-40) % [place] % (Auto) (2-11) % Eos % (Auto) (0-4) % Baso % (Auto) (0-2) % Lymph # (Auto) (1.2-4.9) X10*3/uL [place] # (Auto) (0.1-1.2) X10*3/uL Eos # (Auto) (0.0-0.4) X10*3/uL Baso # (Auto) (0.0-0.2) X10*3/uL Abs Immat Gran (auto) (0.00-0.03) X10*3/uL Absolute Neuts (auto) (2.0-8.3) x10*3/uL Absolute Nucleated RBC (0.0-0.012) X10*3/uL Nucleated RBC % (auto) (0.0-0.2) /100WBC ESR 29 H (0-15) MM/HR PT (10.0-13.1) SEC INR (0.9-1.1) APTT (26.0-36.4) SEC O2 Saturation % ABG pH at Pt Temp (7.35-7.45) ABG pCO2 at Pt Temp (32-45) mmHg ABG pO2 at Pt Temp (83-108) mmHg ABG HCO3 (22-26) mmol/L ABG Base Excess (Actual) mmol/L VBG pH 7.28 L (7.32-7.43) VBG pCO2 30 mmHg VBG pO2 54 mmHg VBG HCO3 14 L (22-26) mmol/L VBG O2 Saturation 79.0 % VBG Base Excess -10.7 mmol/L Sodium (135-145) mmol/L Potassium (3.3-5.1) mmol/L Chloride (96-108) mmol/L Carbon Dioxide (22-29) mmol/L Anion Gap (12-20) BUN (9-16) mg/dL Creatinine (0.5-1.4) mg/dL Estim Creat Clear Calc Estimated GFR POC Glucose (60-115) mg/dL Random Glucose (60-115) mg/dL Lactic Acid (0.5-2.0) mmol/L Lactic Acid F/U @ 2Hr (0.5-2.0) mmol/L Calcium (8.4-10.2) mg/dL Magnesium (1.6-2.6) mg/dL Total Bilirubin (0.0-1.0) mg/dL Direct Bilirubin (0.0-0.5) mg/dL AST (5-37) U/L ALT (0-40) U/L Alkaline Phosphatase (39-117) U/L Ammonia (13-55) umol/L Total Creatine Kinase (38-174) U/L Troponin I High Sens (<3.5-35.0) ng/L C-Reactive Protein (< or = 0.50) mg/dL B-Natriuretic Peptide (<100) pg/mL Total Protein (6.5-8.0) g/dL Albumin (3.5-5.0) g/dL Lipase (8-78) U/L Procalcitonin ng/mL Urine Color Urine Appearance Urine pH (5.0-9.0) Ur Specific [place] (1.005-1.025) Urine Protein (Neg-Trace) mg/dL Urine Glucose (UA) (Negative) mg/dL Urine Ketones (Negative) mg/dL Urine Blood (Negative) Urine Nitrite (Negative) Ur Leukocyte Esterase (Negative) Urine RBC (0-2) /HPF Urine WBC (0-5) /HPF Ur Squamous Epith Cells (0-2) /HPF Urine Bacteria (None Seen) Hyaline Casts (0-2) /LPF Granular Casts Acetone, Qual (Negative) COVID-19 ([facility]) Invalid (Negative) COVID-19 Clin Com See Note Influenza Type A (PCR) (Negative) Influenza Type B (PCR) (Negative) RSV RNA Qual (PCR) (Negative) SARS-CoV-2 RNA (RT-PCR) (Negative) 12/11/21 12/11/21 12/11/21 Range/Units 17:14 17:15 18:24 WBC (4.8-10.8) X10*3/uL RBC (4.60-5.80) X10*6/uL Hgb (14.0-18.0) g/dl Hct (42.0-52.0) % MCV (80.0-98.0) fL MCH (27.0-33.0) pg MCHC (31.0-36.0) g/dl RDW (11.0-16.0) % Plt Count (160-400) X10*3/uL MPV (9.4-12.4) fL Immature Gran % (Auto) (0.0-0.4) % Neut % (Auto) (45-73) % Lymph % (Auto) (20-40) % [place] % (Auto) (2-11) % Eos % (Auto) (0-4) % Baso % (Auto) (0-2) % Lymph # (Auto) (1.2-4.9) X10*3/uL [place] # (Auto) (0.1-1.2) X10*3/uL Eos # (Auto) (0.0-0.4) X10*3/uL Baso # (Auto) (0.0-0.2) X10*3/uL Abs Immat Gran (auto) (0.00-0.03) X10*3/uL Absolute Neuts (auto) (2.0-8.3) x10*3/uL Absolute Nucleated RBC (0.0-0.012) X10*3/uL Nucleated RBC % (auto) (0.0-0.2) /100WBC ESR (0-15) MM/HR PT (10.0-13.1) SEC INR (0.9-1.1) APTT (26.0-36.4) SEC O2 Saturation 98.0 % ABG pH at Pt Temp 7.31 L (7.35-7.45) ABG pCO2 at Pt Temp 25 L (32-45) mmHg ABG pO2 at Pt Temp 110 H (83-108) mmHg ABG HCO3 13 L (22-26) mmol/L ABG Base Excess (Actual) -11.2 mmol/L VBG pH (7.32-7.43) VBG pCO2 mmHg VBG pO2 mmHg VBG HCO3 (22-26) mmol/L VBG O2 Saturation % VBG Base Excess mmol/L Sodium (135-145) mmol/L Potassium (3.3-5.1) mmol/L Chloride (96-108) mmol/L Carbon Dioxide (22-29) mmol/L Anion Gap (12-20) BUN (9-16) mg/dL Creatinine (0.5-1.4) mg/dL Estim Creat Clear Calc Estimated GFR POC Glucose (60-115) mg/dL Random Glucose (60-115) mg/dL Lactic Acid (0.5-2.0) mmol/L Lactic Acid F/U @ 2Hr (0.5-2.0) mmol/L Calcium (8.4-10.2) mg/dL Magnesium (1.6-2.6) mg/dL Total Bilirubin (0.0-1.0) mg/dL Direct Bilirubin (0.0-0.5) mg/dL AST (5-37) U/L ALT (0-40) U/L Alkaline Phosphatase (39-117) U/L Ammonia (13-55) umol/L Total Creatine Kinase (38-174) U/L Troponin I High Sens (<3.5-35.0) ng/L C-Reactive Protein (< or = 0.50) mg/dL B-Natriuretic Peptide (<100) pg/mL Total Protein (6.5-8.0) g/dL Albumin (3.5-5.0) g/dL Lipase (8-78) U/L Procalcitonin ng/mL Urine Color Dark Yellow Urine Appearance Turbid Urine pH 5.0 (5.0-9.0) Ur Specific [place] >= 1.030 H (1.005-1.025) Urine Protein 300 (3+) H (Neg-Trace) mg/dL Urine Glucose (UA) 250 H (Negative) mg/dL Urine Ketones 15 (Negative) mg/dL Urine Blood Large (3+) H (Negative) Urine Nitrite Negative (Negative) Ur Leukocyte Esterase Trace H (Negative) Urine RBC >20 H (0-2) /HPF Urine WBC 6-10 (0-5) /HPF Ur Squamous Epith Cells 6-10 (0-2) /HPF Urine Bacteria 1+ (None Seen) Hyaline Casts 3-5 (0-2) /LPF Granular Casts Present Acetone, Qual (Negative) COVID-19 ([facility]) (Negative) COVID-19 Clin Com Influenza Type A (PCR) NEGATIVE (Negative) Influenza Type B (PCR) NEGATIVE (Negative) RSV RNA Qual (PCR) NEGATIVE (Negative) SARS-CoV-2 RNA (RT-PCR) NEGATIVE (Negative) 12/11/21 12/11/21 12/11/21 Range/Units 18:38 18:44 18:44 WBC (4.8-10.8) X10*3/uL RBC (4.60-5.80) X10*6/uL Hgb (14.0-18.0) g/dl Hct (42.0-52.0) % MCV (80.0-98.0) fL MCH (27.0-33.0) pg MCHC (31.0-36.0) g/dl RDW (11.0-16.0) % Plt Count (160-400) X10*3/uL MPV (9.4-12.4) fL Immature Gran % (Auto) (0.0-0.4) % Neut % (Auto) (45-73) % Lymph % (Auto) (20-40) % [place] % (Auto) (2-11) % Eos % (Auto) (0-4) % Baso % (Auto) (0-2) % Lymph # (Auto) (1.2-4.9) X10*3/uL [place] # (Auto) (0.1-1.2) X10*3/uL Eos # (Auto) (0.0-0.4) X10*3/uL Baso # (Auto) (0.0-0.2) X10*3/uL Abs Immat Gran (auto) (0.00-0.03) X10*3/uL Absolute Neuts (auto) (2.0-8.3) x10*3/uL Absolute Nucleated RBC (0.0-0.012) X10*3/uL Nucleated RBC % (auto) (0.0-0.2) /100WBC ESR (0-15) MM/HR PT (10.0-13.1) SEC INR (0.9-1.1) APTT (26.0-36.4) SEC O2 Saturation % ABG pH at Pt Temp (7.35-7.45) ABG pCO2 at Pt Temp (32-45) mmHg ABG pO2 at Pt Temp (83-108) mmHg ABG HCO3 (22-26) mmol/L ABG Base Excess (Actual) mmol/L VBG pH (7.32-7.43) VBG pCO2 mmHg VBG pO2 mmHg VBG HCO3 (22-26) mmol/L VBG O2 Saturation % VBG Base Excess mmol/L Sodium (135-145) mmol/L Potassium (3.3-5.1) mmol/L Chloride (96-108) mmol/L Carbon Dioxide (22-29) mmol/L Anion Gap (12-20) BUN (9-16) mg/dL Creatinine (0.5-1.4) mg/dL Estim Creat Clear Calc Estimated GFR POC Glucose 448 H* (60-115) mg/dL Random Glucose (60-115) mg/dL Lactic Acid (0.5-2.0) mmol/L Lactic Acid F/U @ 2Hr 3.0 H* (0.5-2.0) mmol/L Calcium (8.4-10.2) mg/dL Magnesium (1.6-2.6) mg/dL Total Bilirubin (0.0-1.0) mg/dL Direct Bilirubin (0.0-0.5) mg/dL AST (5-37) U/L ALT (0-40) U/L Alkaline Phosphatase (39-117) U/L Ammonia (13-55) umol/L Total Creatine Kinase (38-174) U/L Troponin I High Sens 43.3 H (<3.5-35.0) ng/L C-Reactive Protein (< or = 0.50) mg/dL B-Natriuretic Peptide (<100) pg/mL Total Protein (6.5-8.0) g/dL Albumin (3.5-5.0) g/dL Lipase (8-78) U/L Procalcitonin ng/mL Urine Color Urine Appearance Urine pH (5.0-9.0) Ur Specific [place] (1.005-1.025) Urine Protein (Neg-Trace) mg/dL Urine Glucose (UA) (Negative) mg/dL Urine Ketones (Negative) mg/dL Urine Blood (Negative) Urine Nitrite (Negative) Ur Leukocyte Esterase (Negative) Urine RBC (0-2) /HPF Urine WBC (0-5) /HPF Ur Squamous Epith Cells (0-2) /HPF Urine Bacteria (None Seen) Hyaline Casts (0-2) /LPF Granular Casts Acetone, Qual (Negative) COVID-19 ([facility]) (Negative) COVID-19 Clin Com Influenza Type A (PCR) (Negative) Influenza Type B (PCR) (Negative) RSV RNA Qual (PCR) (Negative) SARS-CoV-2 RNA (RT-PCR) (Negative) 12/11/21 12/11/21 Range/Units 20:21 21:01 WBC (4.8-10.8) X10*3/uL RBC (4.60-5.80) X10*6/uL Hgb (14.0-18.0) g/dl Hct (42.0-52.0) % MCV (80.0-98.0) fL MCH (27.0-33.0) pg MCHC (31.0-36.0) g/dl RDW (11.0-16.0) % Plt Count (160-400) X10*3/uL MPV (9.4-12.4) fL Immature Gran % (Auto) (0.0-0.4) % Neut % (Auto) (45-73) % Lymph % (Auto) (20-40) % [place] % (Auto) (2-11) % Eos % (Auto) (0-4) % Baso % (Auto) (0-2) % Lymph # (Auto) (1.2-4.9) X10*3/uL [place] # (Auto) (0.1-1.2) X10*3/uL Eos # (Auto) (0.0-0.4) X10*3/uL Baso # (Auto) (0.0-0.2) X10*3/uL Abs Immat Gran (auto) (0.00-0.03) X10*3/uL Absolute Neuts (auto) (2.0-8.3) x10*3/uL Absolute Nucleated RBC (0.0-0.012) X10*3/uL Nucleated RBC % (auto) (0.0-0.2) /100WBC ESR (0-15) MM/HR PT (10.0-13.1) SEC INR (0.9-1.1) APTT (26.0-36.4) SEC O2 Saturation % ABG pH at Pt Temp (7.35-7.45) ABG pCO2 at Pt Temp (32-45) mmHg ABG pO2 at Pt Temp (83-108) mmHg ABG HCO3 (22-26) mmol/L ABG Base Excess (Actual) mmol/L VBG pH (7.32-7.43) VBG pCO2 mmHg VBG pO2 mmHg VBG HCO3 (22-26) mmol/L VBG O2 Saturation % VBG Base Excess mmol/L Sodium 140 (135-145) mmol/L Potassium 4.0 (3.3-5.1) mmol/L Chloride 113 H (96-108) mmol/L Carbon Dioxide 13 L (22-29) mmol/L Anion Gap 18 (12-20) BUN 43 H (9-16) mg/dL Creatinine 1.69 H (0.5-1.4) mg/dL Estim Creat Clear Calc 48.3 Estimated GFR 41 POC Glucose 441 H* (60-115) mg/dL Random Glucose 580 H* (60-115) mg/dL Lactic Acid (0.5-2.0) mmol/L Lactic Acid F/U @ 2Hr (0.5-2.0) mmol/L Calcium 7.4 L (8.4-10.2) mg/dL Magnesium (1.6-2.6) mg/dL Total Bilirubin (0.0-1.0) mg/dL Direct Bilirubin (0.0-0.5) mg/dL AST (5-37) U/L ALT (0-40) U/L Alkaline Phosphatase (39-117) U/L Ammonia (13-55) umol/L Total Creatine Kinase (38-174) U/L Troponin I High Sens (<3.5-35.0) ng/L C-Reactive Protein (< or = 0.50) mg/dL B-Natriuretic Peptide (<100) pg/mL Total Protein (6.5-8.0) g/dL Albumin (3.5-5.0) g/dL Lipase (8-78) U/L Procalcitonin ng/mL Urine Color Urine Appearance Urine pH (5.0-9.0) Ur Specific [place] (1.005-1.025) Urine Protein (Neg-Trace) mg/dL Urine Glucose (UA) (Negative) mg/dL Urine Ketones (Negative) mg/dL Urine Blood (Negative) Urine Nitrite (Negative) Ur Leukocyte Esterase (Negative) Urine RBC (0-2) /HPF Urine WBC (0-5) /HPF Ur Squamous Epith Cells (0-2) /HPF Urine Bacteria (None Seen) Hyaline Casts (0-2) /LPF Granular Casts Acetone, Qual (Negative) COVID-19 ([facility]) (Negative) COVID-19 Clin Com Influenza Type A (PCR) (Negative) Influenza Type B (PCR) (Negative) RSV RNA Qual (PCR) (Negative) SARS-CoV-2 RNA (RT-PCR) (Negative) <NAMITA Fairchild - Last Filed: 12/11/21 21:08> Lab Results 12/11/21 12/11/21 12/11/21 Range/Units 16:00 16:00 16:00 WBC (4.8-10.8) X10*3/uL RBC (4.60-5.80) X10*6/uL Hgb (14.0-18.0) g/dl Hct (42.0-52.0) % MCV (80.0-98.0) fL MCH (27.0-33.0) pg MCHC (31.0-36.0) g/dl RDW (11.0-16.0) % Plt Count (160-400) X10*3/uL MPV (9.4-12.4) fL Immature Gran % (Auto) (0.0-0.4) % Neut % (Auto) (45-73) % Lymph % (Auto) (20-40) % [place] % (Auto) (2-11) % Eos % (Auto) (0-4) % Baso % (Auto) (0-2) % Lymph # (Auto) (1.2-4.9) X10*3/uL [place] # (Auto) (0.1-1.2) X10*3/uL Eos # (Auto) (0.0-0.4) X10*3/uL Baso # (Auto) (0.0-0.2) X10*3/uL Abs Immat Gran (auto) (0.00-0.03) X10*3/uL Absolute Neuts (auto) (2.0-8.3) x10*3/uL Absolute Nucleated RBC (0.0-0.012) X10*3/uL Nucleated RBC % (auto) (0.0-0.2) /100WBC ESR (0-15) MM/HR PT 16.8 H (10.0-13.1) SEC INR 1.4 H (0.9-1.1) APTT 30.7 (26.0-36.4) SEC O2 Saturation % ABG pH at Pt Temp (7.35-7.45) ABG pCO2 at Pt Temp (32-45) mmHg ABG pO2 at Pt Temp (83-108) mmHg ABG HCO3 (22-26) mmol/L ABG Base Excess (Actual) mmol/L VBG pH (7.32-7.43) VBG pCO2 mmHg VBG pO2 mmHg VBG HCO3 (22-26) mmol/L VBG O2 Saturation % VBG Base Excess mmol/L Sodium (135-145) mmol/L Potassium (3.3-5.1) mmol/L Chloride (96-108) mmol/L Carbon Dioxide (22-29) mmol/L Anion Gap (12-20) BUN (9-16) mg/dL Creatinine (0.5-1.4) mg/dL Estim Creat Clear Calc Estimated GFR POC Glucose (60-115) mg/dL Random Glucose (60-115) mg/dL Lactic Acid 3.7 H* (0.5-2.0) mmol/L Lactic Acid F/U @ 2Hr (0.5-2.0) mmol/L Calcium (8.4-10.2) mg/dL Magnesium (1.6-2.6) mg/dL Total Bilirubin (0.0-1.0) mg/dL Direct Bilirubin (0.0-0.5) mg/dL AST (5-37) U/L ALT (0-40) U/L Alkaline Phosphatase (39-117) U/L Ammonia (13-55) umol/L Total Creatine Kinase (38-174) U/L Troponin I High Sens (<3.5-35.0) ng/L C-Reactive Protein (< or = 0.50) mg/dL B-Natriuretic Peptide (<100) pg/mL Total Protein (6.5-8.0) g/dL Albumin (3.5-5.0) g/dL Lipase (8-78) U/L Procalcitonin ng/mL Urine Color Urine Appearance Urine pH (5.0-9.0) Ur Specific [place] (1.005-1.025) Urine Protein (Neg-Trace) mg/dL Urine Glucose (UA) (Negative) mg/dL Urine Ketones (Negative) mg/dL Urine Blood (Negative) Urine Nitrite (Negative) Ur Leukocyte Esterase (Negative) Urine RBC (0-2) /HPF Urine WBC (0-5) /HPF Ur Squamous Epith Cells (0-2) /HPF Urine Bacteria (None Seen) Hyaline Casts (0-2) /LPF Granular Casts Acetone, Qual Moderate H (Negative) COVID-19 ([facility]) (Negative) COVID-19 Clin Com Influenza Type A (PCR) (Negative) Influenza Type B (PCR) (Negative) RSV RNA Qual (PCR) (Negative) SARS-CoV-2 RNA (RT-PCR) (Negative) 12/11/21 12/11/21 12/11/21 Range/Units 16:01 16:02 16:02 WBC (4.8-10.8) X10*3/uL RBC (4.60-5.80) X10*6/uL Hgb (14.0-18.0) g/dl Hct (42.0-52.0) % MCV (80.0-98.0) fL MCH (27.0-33.0) pg MCHC (31.0-36.0) g/dl RDW (11.0-16.0) % Plt Count (160-400) X10*3/uL MPV (9.4-12.4) fL Immature Gran % (Auto) (0.0-0.4) % Neut % (Auto) (45-73) % Lymph % (Auto) (20-40) % [place] % (Auto) (2-11) % Eos % (Auto) (0-4) % Baso % (Auto) (0-2) % Lymph # (Auto) (1.2-4.9) X10*3/uL [place] # (Auto) (0.1-1.2) X10*3/uL Eos # (Auto) (0.0-0.4) X10*3/uL Baso # (Auto) (0.0-0.2) X10*3/uL Abs Immat Gran (auto) (0.00-0.03) X10*3/uL Absolute Neuts (auto) (2.0-8.3) x10*3/uL Absolute Nucleated RBC (0.0-0.012) X10*3/uL Nucleated RBC % (auto) (0.0-0.2) /100WBC ESR (0-15) MM/HR PT (10.0-13.1) SEC INR (0.9-1.1) APTT (26.0-36.4) SEC O2 Saturation % ABG pH at Pt Temp (7.35-7.45) ABG pCO2 at Pt Temp (32-45) mmHg ABG pO2 at Pt Temp (83-108) mmHg ABG HCO3 (22-26) mmol/L ABG Base Excess (Actual) mmol/L VBG pH (7.32-7.43) VBG pCO2 mmHg VBG pO2 mmHg VBG HCO3 (22-26) mmol/L VBG O2 Saturation % VBG Base Excess mmol/L Sodium 140 (135-145) mmol/L Potassium 3.6 (3.3-5.1) mmol/L Chloride 113 H (96-108) mmol/L Carbon Dioxide 11 L (22-29) mmol/L Anion Gap 20 (12-20) BUN 42 H D (9-16) mg/dL Creatinine 2.00 H (0.5-1.4) mg/dL Estim Creat Clear Calc 40.8 Estimated GFR 34 POC Glucose (60-115) mg/dL Random Glucose 646 H* (60-115) mg/dL Lactic Acid (0.5-2.0) mmol/L Lactic Acid F/U @ 2Hr (0.5-2.0) mmol/L Calcium 7.2 L D (8.4-10.2) mg/dL Magnesium 1.9 (1.6-2.6) mg/dL Total Bilirubin 0.4 (0.0-1.0) mg/dL Direct Bilirubin 0.2 (0.0-0.5) mg/dL AST 11 (5-37) U/L ALT 9 (0-40) U/L Alkaline Phosphatase 45 D (39-117) U/L Ammonia 23 (13-55) umol/L Total Creatine Kinase 100 (38-174) U/L Troponin I High Sens 39.6 H (<3.5-35.0) ng/L C-Reactive Protein 1.31 H (< or = 0.50) mg/dL B-Natriuretic Peptide (<100) pg/mL Total Protein 6.1 L (6.5-8.0) g/dL Albumin 3.1 L (3.5-5.0) g/dL Lipase 20 (8-78) U/L Procalcitonin ng/mL Urine Color Urine Appearance Urine pH (5.0-9.0) Ur Specific [place] (1.005-1.025) Urine Protein (Neg-Trace) mg/dL Urine Glucose (UA) (Negative) mg/dL Urine Ketones (Negative) mg/dL Urine Blood (Negative) Urine Nitrite (Negative) Ur Leukocyte Esterase (Negative) Urine RBC (0-2) /HPF Urine WBC (0-5) /HPF Ur Squamous Epith Cells (0-2) /HPF Urine Bacteria (None Seen) Hyaline Casts (0-2) /LPF Granular Casts Acetone, Qual (Negative) COVID-19 ([facility]) (Negative) COVID-19 Clin Com Influenza Type A (PCR) (Negative) Influenza Type B (PCR) (Negative) RSV RNA Qual (PCR) (Negative) SARS-CoV-2 RNA (RT-PCR) (Negative) 12/11/21 12/11/21 12/11/21 Range/Units 16:02 16:03 16:03 WBC 10.1 (4.8-10.8) X10*3/uL RBC 5.45 D (4.60-5.80) X10*6/uL Hgb 15.1 D (14.0-18.0) g/dl Hct 46.9 D (42.0-52.0) % MCV 86.1 (80.0-98.0) fL MCH 27.7 (27.0-33.0) pg MCHC 32.2 (31.0-36.0) g/dl RDW 15.3 (11.0-16.0) % Plt Count 192 (160-400) X10*3/uL MPV 11.0 (9.4-12.4) fL Immature Gran % (Auto) 0.4 (0.0-0.4) % Neut % (Auto) 65.6 (45-73) % Lymph % (Auto) 21.2 (20-40) % [place] % (Auto) 12.4 H (2-11) % Eos % (Auto) 0.0 (0-4) % Baso % (Auto) 0.4 (0-2) % Lymph # (Auto) 2.1 (1.2-4.9) X10*3/uL [place] # (Auto) 1.3 H (0.1-1.2) X10*3/uL Eos # (Auto) 0.0 (0.0-0.4) X10*3/uL Baso # (Auto) 0.0 (0.0-0.2) X10*3/uL Abs Immat Gran (auto) 0.04 H (0.00-0.03) X10*3/uL Absolute Neuts (auto) 6.6 (2.0-8.3) x10*3/uL Absolute Nucleated RBC 0.000 (0.0-0.012) X10*3/uL Nucleated RBC % (auto) 0.0 (0.0-0.2) /100WBC ESR (0-15) MM/HR PT (10.0-13.1) SEC INR (0.9-1.1) APTT (26.0-36.4) SEC O2 Saturation % ABG pH at Pt Temp (7.35-7.45) ABG pCO2 at Pt Temp (32-45) mmHg ABG pO2 at Pt Temp (83-108) mmHg ABG HCO3 (22-26) mmol/L ABG Base Excess (Actual) mmol/L VBG pH (7.32-7.43) VBG pCO2 mmHg VBG pO2 mmHg VBG HCO3 (22-26) mmol/L VBG O2 Saturation % VBG Base Excess mmol/L Sodium (135-145) mmol/L Potassium (3.3-5.1) mmol/L Chloride (96-108) mmol/L Carbon Dioxide (22-29) mmol/L Anion Gap (12-20) BUN (9-16) mg/dL Creatinine (0.5-1.4) mg/dL Estim Creat Clear Calc Estimated GFR POC Glucose (60-115) mg/dL Random Glucose (60-115) mg/dL Lactic Acid (0.5-2.0) mmol/L Lactic Acid F/U @ 2Hr (0.5-2.0) mmol/L Calcium (8.4-10.2) mg/dL Magnesium (1.6-2.6) mg/dL Total Bilirubin (0.0-1.0) mg/dL Direct Bilirubin (0.0-0.5) mg/dL AST (5-37) U/L ALT (0-40) U/L Alkaline Phosphatase (39-117) U/L Ammonia (13-55) umol/L Total Creatine Kinase (38-174) U/L Troponin I High Sens (<3.5-35.0) ng/L C-Reactive Protein (< or = 0.50) mg/dL B-Natriuretic Peptide 82 (<100) pg/mL Total Protein (6.5-8.0) g/dL Albumin (3.5-5.0) g/dL Lipase (8-78) U/L Procalcitonin 0.30 ng/mL Urine Color Urine Appearance Urine pH (5.0-9.0) Ur Specific [place] (1.005-1.025) Urine Protein (Neg-Trace) mg/dL Urine Glucose (UA) (Negative) mg/dL Urine Ketones (Negative) mg/dL Urine Blood (Negative) Urine Nitrite (Negative) Ur Leukocyte Esterase (Negative) Urine RBC (0-2) /HPF Urine WBC (0-5) /HPF Ur Squamous Epith Cells (0-2) /HPF Urine Bacteria (None Seen) Hyaline Casts (0-2) /LPF Granular Casts Acetone, Qual (Negative) COVID-19 ([facility]) (Negative) COVID-19 Clin Com Influenza Type A (PCR) (Negative) Influenza Type B (PCR) (Negative) RSV RNA Qual (PCR) (Negative) SARS-CoV-2 RNA (RT-PCR) (Negative) 12/11/21 12/11/21 12/11/21 Range/Units 16:03 16:04 16:12 WBC (4.8-10.8) X10*3/uL RBC (4.60-5.80) X10*6/uL Hgb (14.0-18.0) g/dl Hct (42.0-52.0) % MCV (80.0-98.0) fL MCH (27.0-33.0) pg MCHC (31.0-36.0) g/dl RDW (11.0-16.0) % Plt Count (160-400) X10*3/uL MPV (9.4-12.4) fL Immature Gran % (Auto) (0.0-0.4) % Neut % (Auto) (45-73) % Lymph % (Auto) (20-40) % [place] % (Auto) (2-11) % Eos % (Auto) (0-4) % Baso % (Auto) (0-2) % Lymph # (Auto) (1.2-4.9) X10*3/uL [place] # (Auto) (0.1-1.2) X10*3/uL Eos # (Auto) (0.0-0.4) X10*3/uL Baso # (Auto) (0.0-0.2) X10*3/uL Abs Immat Gran (auto) (0.00-0.03) X10*3/uL Absolute Neuts (auto) (2.0-8.3) x10*3/uL Absolute Nucleated RBC (0.0-0.012) X10*3/uL Nucleated RBC % (auto) (0.0-0.2) /100WBC ESR 29 H (0-15) MM/HR PT (10.0-13.1) SEC INR (0.9-1.1) APTT (26.0-36.4) SEC O2 Saturation % ABG pH at Pt Temp (7.35-7.45) ABG pCO2 at Pt Temp (32-45) mmHg ABG pO2 at Pt Temp (83-108) mmHg ABG HCO3 (22-26) mmol/L ABG Base Excess (Actual) mmol/L VBG pH 7.28 L (7.32-7.43) VBG pCO2 30 mmHg VBG pO2 54 mmHg VBG HCO3 14 L (22-26) mmol/L VBG O2 Saturation 79.0 % VBG Base Excess -10.7 mmol/L Sodium (135-145) mmol/L Potassium (3.3-5.1) mmol/L Chloride (96-108) mmol/L Carbon Dioxide (22-29) mmol/L Anion Gap (12-20) BUN (9-16) mg/dL Creatinine (0.5-1.4) mg/dL Estim Creat Clear Calc Estimated GFR POC Glucose (60-115) mg/dL Random Glucose (60-115) mg/dL Lactic Acid (0.5-2.0) mmol/L Lactic Acid F/U @ 2Hr (0.5-2.0) mmol/L Calcium (8.4-10.2) mg/dL Magnesium (1.6-2.6) mg/dL Total Bilirubin (0.0-1.0) mg/dL Direct Bilirubin (0.0-0.5) mg/dL AST (5-37) U/L ALT (0-40) U/L Alkaline Phosphatase (39-117) U/L Ammonia (13-55) umol/L Total Creatine Kinase (38-174) U/L Troponin I High Sens (<3.5-35.0) ng/L C-Reactive Protein (< or = 0.50) mg/dL B-Natriuretic Peptide (<100) pg/mL Total Protein (6.5-8.0) g/dL Albumin (3.5-5.0) g/dL Lipase (8-78) U/L Procalcitonin ng/mL Urine Color Urine Appearance Urine pH (5.0-9.0) Ur Specific [place] (1.005-1.025) Urine Protein (Neg-Trace) mg/dL Urine Glucose (UA) (Negative) mg/dL Urine Ketones (Negative) mg/dL Urine Blood (Negative) Urine Nitrite (Negative) Ur Leukocyte Esterase (Negative) Urine RBC (0-2) /HPF Urine WBC (0-5) /HPF Ur Squamous Epith Cells (0-2) /HPF Urine Bacteria (None Seen) Hyaline Casts (0-2) /LPF Granular Casts Acetone, Qual (Negative) COVID-19 ([facility]) Invalid (Negative) COVID-19 Clin Com See Note Influenza Type A (PCR) (Negative) Influenza Type B (PCR) (Negative) RSV RNA Qual (PCR) (Negative) SARS-CoV-2 RNA (RT-PCR) (Negative) 12/11/21 12/11/21 12/11/21 Range/Units 17:14 17:15 18:24 WBC (4.8-10.8) X10*3/uL RBC (4.60-5.80) X10*6/uL Hgb (14.0-18.0) g/dl Hct (42.0-52.0) % MCV (80.0-98.0) fL MCH (27.0-33.0) pg MCHC (31.0-36.0) g/dl RDW (11.0-16.0) % Plt Count (160-400) X10*3/uL MPV (9.4-12.4) fL Immature Gran % (Auto) (0.0-0.4) % Neut % (Auto) (45-73) % Lymph % (Auto) (20-40) % [place] % (Auto) (2-11) % Eos % (Auto) (0-4) % Baso % (Auto) (0-2) % Lymph # (Auto) (1.2-4.9) X10*3/uL [place] # (Auto) (0.1-1.2) X10*3/uL Eos # (Auto) (0.0-0.4) X10*3/uL Baso # (Auto) (0.0-0.2) X10*3/uL Abs Immat Gran (auto) (0.00-0.03) X10*3/uL Absolute Neuts (auto) (2.0-8.3) x10*3/uL Absolute Nucleated RBC (0.0-0.012) X10*3/uL Nucleated RBC % (auto) (0.0-0.2) /100WBC ESR (0-15) MM/HR PT (10.0-13.1) SEC INR (0.9-1.1) APTT (26.0-36.4) SEC O2 Saturation 98.0 % ABG pH at Pt Temp 7.31 L (7.35-7.45) ABG pCO2 at Pt Temp 25 L (32-45) mmHg ABG pO2 at Pt Temp 110 H (83-108) mmHg ABG HCO3 13 L (22-26) mmol/L ABG Base Excess (Actual) -11.2 mmol/L VBG pH (7.32-7.43) VBG pCO2 mmHg VBG pO2 mmHg VBG HCO3 (22-26) mmol/L VBG O2 Saturation % VBG Base Excess mmol/L Sodium (135-145) mmol/L Potassium (3.3-5.1) mmol/L Chloride (96-108) mmol/L Carbon Dioxide (22-29) mmol/L Anion Gap (12-20) BUN (9-16) mg/dL Creatinine (0.5-1.4) mg/dL Estim Creat Clear Calc Estimated GFR POC Glucose (60-115) mg/dL Random Glucose (60-115) mg/dL Lactic Acid (0.5-2.0) mmol/L Lactic Acid F/U @ 2Hr (0.5-2.0) mmol/L Calcium (8.4-10.2) mg/dL Magnesium (1.6-2.6) mg/dL Total Bilirubin (0.0-1.0) mg/dL Direct Bilirubin (0.0-0.5) mg/dL AST (5-37) U/L ALT (0-40) U/L Alkaline Phosphatase (39-117) U/L Ammonia (13-55) umol/L Total Creatine Kinase (38-174) U/L Troponin I High Sens (<3.5-35.0) ng/L C-Reactive Protein (< or = 0.50) mg/dL B-Natriuretic Peptide (<100) pg/mL Total Protein (6.5-8.0) g/dL Albumin (3.5-5.0) g/dL Lipase (8-78) U/L Procalcitonin ng/mL Urine Color Dark Yellow Urine Appearance Turbid Urine pH 5.0 (5.0-9.0) Ur Specific [place] >= 1.030 H (1.005-1.025) Urine Protein 300 (3+) H (Neg-Trace) mg/dL Urine Glucose (UA) 250 H (Negative) mg/dL Urine Ketones 15 (Negative) mg/dL Urine Blood Large (3+) H (Negative) Urine Nitrite Negative (Negative) Ur Leukocyte Esterase Trace H (Negative) Urine RBC >20 H (0-2) /HPF Urine WBC 6-10 (0-5) /HPF Ur Squamous Epith Cells 6-10 (0-2) /HPF Urine Bacteria 1+ (None Seen) Hyaline Casts 3-5 (0-2) /LPF Granular Casts Present Acetone, Qual (Negative) COVID-19 ([facility]) (Negative) COVID-19 Clin Com Influenza Type A (PCR) NEGATIVE (Negative) Influenza Type B (PCR) NEGATIVE (Negative) RSV RNA Qual (PCR) NEGATIVE (Negative) SARS-CoV-2 RNA (RT-PCR) NEGATIVE (Negative) 12/11/21 12/11/21 12/11/21 Range/Units 18:38 18:44 18:44 WBC (4.8-10.8) X10*3/uL RBC (4.60-5.80) X10*6/uL Hgb (14.0-18.0) g/dl Hct (42.0-52.0) % MCV (80.0-98.0) fL MCH (27.0-33.0) pg MCHC (31.0-36.0) g/dl RDW (11.0-16.0) % Plt Count (160-400) X10*3/uL MPV (9.4-12.4) fL Immature Gran % (Auto) (0.0-0.4) % Neut % (Auto) (45-73) % Lymph % (Auto) (20-40) % [place] % (Auto) (2-11) % Eos % (Auto) (0-4) % Baso % (Auto) (0-2) % Lymph # (Auto) (1.2-4.9) X10*3/uL [place] # (Auto) (0.1-1.2) X10*3/uL Eos # (Auto) (0.0-0.4) X10*3/uL Baso # (Auto) (0.0-0.2) X10*3/uL Abs Immat Gran (auto) (0.00-0.03) X10*3/uL Absolute Neuts (auto) (2.0-8.3) x10*3/uL Absolute Nucleated RBC (0.0-0.012) X10*3/uL Nucleated RBC % (auto) (0.0-0.2) /100WBC ESR (0-15) MM/HR PT (10.0-13.1) SEC INR (0.9-1.1) APTT (26.0-36.4) SEC O2 Saturation % ABG pH at Pt Temp (7.35-7.45) ABG pCO2 at Pt Temp (32-45) mmHg ABG pO2 at Pt Temp (83-108) mmHg ABG HCO3 (22-26) mmol/L ABG Base Excess (Actual) mmol/L VBG pH (7.32-7.43) VBG pCO2 mmHg VBG pO2 mmHg VBG HCO3 (22-26) mmol/L VBG O2 Saturation % VBG Base Excess mmol/L Sodium (135-145) mmol/L Potassium (3.3-5.1) mmol/L Chloride (96-108) mmol/L Carbon Dioxide (22-29) mmol/L Anion Gap (12-20) BUN (9-16) mg/dL Creatinine (0.5-1.4) mg/dL Estim Creat Clear Calc Estimated GFR POC Glucose 448 H* (60-115) mg/dL Random Glucose (60-115) mg/dL Lactic Acid (0.5-2.0) mmol/L Lactic Acid F/U @ 2Hr 3.0 H* (0.5-2.0) mmol/L Calcium (8.4-10.2) mg/dL Magnesium (1.6-2.6) mg/dL Total Bilirubin (0.0-1.0) mg/dL Direct Bilirubin (0.0-0.5) mg/dL AST (5-37) U/L ALT (0-40) U/L Alkaline Phosphatase (39-117) U/L Ammonia (13-55) umol/L Total Creatine Kinase (38-174) U/L Troponin I High Sens 43.3 H (<3.5-35.0) ng/L C-Reactive Protein (< or = 0.50) mg/dL B-Natriuretic Peptide (<100) pg/mL Total Protein (6.5-8.0) g/dL Albumin (3.5-5.0) g/dL Lipase (8-78) U/L Procalcitonin ng/mL Urine Color Urine Appearance Urine pH (5.0-9.0) Ur Specific [place] (1.005-1.025) Urine Protein (Neg-Trace) mg/dL Urine Glucose (UA) (Negative) mg/dL Urine Ketones (Negative) mg/dL Urine Blood (Negative) Urine Nitrite (Negative) Ur Leukocyte Esterase (Negative) Urine RBC (0-2) /HPF Urine WBC (0-5) /HPF Ur Squamous Epith Cells (0-2) /HPF Urine Bacteria (None Seen) Hyaline Casts (0-2) /LPF Granular Casts Acetone, Qual (Negative) COVID-19 ([facility]) (Negative) COVID-19 Clin Com Influenza Type A (PCR) (Negative) Influenza Type B (PCR) (Negative) RSV RNA Qual (PCR) (Negative) SARS-CoV-2 RNA (RT-PCR) (Negative) 12/11/21 12/11/21 Range/Units 20:21 21:01 WBC (4.8-10.8) X10*3/uL RBC (4.60-5.80) X10*6/uL Hgb (14.0-18.0) g/dl Hct (42.0-52.0) % MCV (80.0-98.0) fL MCH (27.0-33.0) pg MCHC (31.0-36.0) g/dl RDW (11.0-16.0) % Plt Count (160-400) X10*3/uL MPV (9.4-12.4) fL Immature Gran % (Auto) (0.0-0.4) % Neut % (Auto) (45-73) % Lymph % (Auto) (20-40) % [place] % (Auto) (2-11) % Eos % (Auto) (0-4) % Baso % (Auto) (0-2) % Lymph # (Auto) (1.2-4.9) X10*3/uL [place] # (Auto) (0.1-1.2) X10*3/uL Eos # (Auto) (0.0-0.4) X10*3/uL Baso # (Auto) (0.0-0.2) X10*3/uL Abs Immat Gran (auto) (0.00-0.03) X10*3/uL Absolute Neuts (auto) (2.0-8.3) x10*3/uL Absolute Nucleated RBC (0.0-0.012) X10*3/uL Nucleated RBC % (auto) (0.0-0.2) /100WBC ESR (0-15) MM/HR PT (10.0-13.1) SEC INR (0.9-1.1) APTT (26.0-36.4) SEC O2 Saturation % ABG pH at Pt Temp (7.35-7.45) ABG pCO2 at Pt Temp (32-45) mmHg ABG pO2 at Pt Temp (83-108) mmHg ABG HCO3 (22-26) mmol/L ABG Base Excess (Actual) mmol/L VBG pH (7.32-7.43) VBG pCO2 mmHg VBG pO2 mmHg VBG HCO3 (22-26) mmol/L VBG O2 Saturation % VBG Base Excess mmol/L Sodium 140 (135-145) mmol/L Potassium 4.0 (3.3-5.1) mmol/L Chloride 113 H (96-108) mmol/L Carbon Dioxide 13 L (22-29) mmol/L Anion Gap 18 (12-20) BUN 43 H (9-16) mg/dL Creatinine 1.69 H (0.5-1.4) mg/dL Estim Creat Clear Calc 48.3 Estimated GFR 41 POC Glucose 441 H* (60-115) mg/dL Random Glucose 580 H* (60-115) mg/dL Lactic Acid (0.5-2.0) mmol/L Lactic Acid F/U @ 2Hr (0.5-2.0) mmol/L Calcium 7.4 L (8.4-10.2) mg/dL Magnesium (1.6-2.6) mg/dL Total Bilirubin (0.0-1.0) mg/dL Direct Bilirubin (0.0-0.5) mg/dL AST (5-37) U/L ALT (0-40) U/L Alkaline Phosphatase (39-117) U/L Ammonia (13-55) umol/L Total Creatine Kinase (38-174) U/L Troponin I High Sens (<3.5-35.0) ng/L C-Reactive Protein (< or = 0.50) mg/dL B-Natriuretic Peptide (<100) pg/mL Total Protein (6.5-8.0) g/dL Albumin (3.5-5.0) g/dL Lipase (8-78) U/L Procalcitonin ng/mL Urine Color Urine Appearance Urine pH (5.0-9.0) Ur Specific [place] (1.005-1.025) Urine Protein (Neg-Trace) mg/dL Urine Glucose (UA) (Negative) mg/dL Urine Ketones (Negative) mg/dL Urine Blood (Negative) Urine Nitrite (Negative) Ur Leukocyte Esterase (Negative) Urine RBC (0-2) /HPF Urine WBC (0-5) /HPF Ur Squamous Epith Cells (0-2) /HPF Urine Bacteria (None Seen) Hyaline Casts (0-2) /LPF Granular Casts Acetone, Qual (Negative) COVID-19 ([facility]) (Negative) COVID-19 Clin Com Influenza Type A (PCR) (Negative) Influenza Type B (PCR) (Negative) RSV RNA Qual (PCR) (Negative) SARS-CoV-2 RNA (RT-PCR) (Negative) <Davie Link MD - Last Filed: 12/11/21 21:55> ECG Data ECG #1: Attestation: I personally reviewed and interpreted this ECG as follows: <NAMITA Fairchild - Last Filed: 12/11/21 21:08> ECG interpretation date: 12/11/21 <NAMITA Fairchild - Last Filed: 12/11/21 21:08> ECG interpretation time: 16:20 <NAMITA Fairchild - Last Filed: 12/11/21 21:08> Interpretation: Sinus tachycardia at a rate of 147. Wide complex. QTC 447. No STEMI. <NAMITA Fairchild - Last Filed: 12/11/21 21:08> ECG #2: Attestation: I personally reviewed and interpreted this ECG as follows: <NAMITA Fairchild - Last Filed: 12/11/21 21:08> ECG interpretation date: 12/11/21 <NAMITA Fairchild - Last Filed: 12/11/21 21:08> ECG interpretation time: 20:55 <NAMITA Fairchild - Last Filed: 12/11/21 21:08> Prior ECG tracings: available for review <NAMITA Fairchild - Last Filed: 12/11/21 21:08> Interpretation: EKG sinus tachycardia rate of 118. P waves visible. QTC 476. No STEMI. <NAMITA Fairchild - Last Filed: 12/11/21 21:08> Procedures Central Line Placement Right IJ: Time Out Performed: Yes <Davie Link MD - Last Filed: 12/11/21 21:55> Patient Placed on Monitor/Pulse Ox: Yes <Davie Link MD - Last Filed: 12/11/21 21:55> MD Prep: mask, gown and gloves <Davie Link MD - Last Filed: 12/11/21 21:55> Central Line Prep: Chlorhexidine scrub <Davie Link MD - Last Filed: 12/11/21 21:55> Local Anesthetic: lidocaine 1% <Davie Link MD - Last Filed: 12/11/21 21:55> Amount of anesthesia used (mL): 4 <Davie Link MD - Last Filed: 12/11/21 21:55> Ultrasound Used for Placement: Yes <Davie Link MD - Last Filed: 12/11/21 21:55> Central Line Lumen Inserted: triple <Davie iLnk MD - Last Filed: 12/11/21 21:55> Post Procedure: good blood return, all ports aspirated, flushed, capped and sterile dressing applied <Davie Link MD - Last Filed: 12/11/21 21:55> Post Procedure X-Ray: tip of catheter in good position and no pneumothorax seen <Davie Link MD - Last Filed: 12/11/21 21:55> Patient Tolerated Procedure: well and no complications <Davie Link MD - Last Filed: 12/11/21 21:55> Additional Comments: Central line placed by Dr. Davie Link, supervising ED physician <Davie Link MD - Last Filed: 12/11/21 21:55> Critical Care Time Critical Care Time Critical Care Time: Yes <NAMITA Fairchild - Last Filed: 12/11/21 21:08> Total Critical Care Time: 90 <NAMITA Fairchild - Last Filed: 12/11/21 21:08> Attestation: I have personally provided critical care time exclusive of time spent on separately billable procedures. Time includes review of lab data, radiology results, discussion with consultants, and monitoring for potential decompensation. Intervention performed as documented. <NAMITA Fairchild - Last Filed: 12/11/21 21:08> Discharge Plan Discharge Clinical Impression: Sepsis, Fever of unknown origin, DKA (diabetic ketoacidosis), Hypoxia, Metabolic acidosis, Colitis <NAMITA Fairchild - Last Filed: 12/11/21 21:08> Patient Disposition: Still a Patient <NAMITA Fairchild - Last Filed: 12/11/21 21:08> Prescriptions: No Action sennosides [senna] 8.6 mg Tablet 8.6 mg PO BEDTIME acetaminophen 325 mg Tablet 650 mg PO Q6H haloperidol [Haldol] 5 mg Tablet 5 mg PO DAILY PRN (Reason: Psychosis) cetirizine 10 mg Tablet 10 mg PO DAILY isosorbide mononitrate 30 mg Tablet Extended Release 24 Hr 30 mg PO DAILY levothyroxine 25 mcg Tablet 25 mcg PO DAILY@0600 lorazepam [Ativan] 0.5 mg Tablet 0.25 mg PO Q8H PRN (Reason: Anxiety) magnesium hydroxide [Milk of Magnesia] 400 mg/5 mL Suspension 400 mg PO BEDTIME valproic acid (as sodium salt) 250 mg/5 mL Solution 1,250 mg PO BID amlodipine 10 mg Tablet 10 mg PO DAILY metformin 1,000 mg Tablet 1,000 mg PO BID niacin 500 mg Tablet 500 mg PO DAILY aspirin 81 mg Tablet,Chewable 81 mg PO DAILY mirtazapine 15 mg Tablet 15 mg PO BEDTIME haloperidol [Haldol] 2 mg Tablet 8 mg PO BEDTIME topiramate [Topamax] 100 mg Tablet 100 mg PO BID docusate sodium 100 mg Tablet 100 mg PO BID simethicone 80 mg Tablet,Chewable 80 mg PO TIDAC rosuvastatin 40 mg Tablet 40 mg PO BEDTIME lactulose 10 gram/15 mL Solution 20 g PO BID clozapine 50 mg Tablet 50 mg PO BEDTIME omeprazole 20 mg Tablet,Delayed Release (Dr/Ec) 20 mg PO DAILY magnesium chloride 71.5 mg Tablet,Delayed Release (Dr/Ec) 143 mg PO DAILY dulaglutide 4.5 mg/0.5 mL Pen Injector 4.5 mg SUBCUT [place] metoprolol tartrate 50 mg Tablet 50 mg PO DAILY nystatin 100,000 unit/gram Powder 1 appl TOPICAL BID insulin lispro 100 unit/mL Insulin Pen 1 sliding scale dose SUBCUT USEASDIRECTD lidocaine 4 % Adhesive Patch,Medicated 1 patch TOPICAL DAILY <NAMITA Fairchild Last Filed: 12/11/21 21:08> Sepsis Bolus Exclusion Sepsis Bolus Exclusion CHF/Renal Failure This patient met severe sepsis criteria due to the following condition(s):: Hypotension and Documentation of septic shock <NAMITA Fairchild Last Filed: 12/11/21 21:08> In my clinical judgement the administration of 30 ml/kg of crystalloid would be detrimental to this patient due to the patient's following conditions:: Concern for fluid overload <NAMITA Fairchild Last Filed: 12/11/21 21:08> Replace the 30 mls/kg with (*zero amount not acceptable):: Crystalloids amount given in mls: (rate must be at least 150cc/hr): 3,000 <NAMITA Fairchild Last Filed: 12/11/21 21:08> Colloids amount given in mls:: 100 <NAMITA Fairchild Last Filed: 12/11/21 21:08>
--- NOTE | 2021-12-11 15:00 | PC.NURSE ---
patient presents to Ed unresponsive . skin is moist hot and dry . rectal temp is 105 . BP 82/64 . O2 on 95% via non rebreather . IV placed in left hand . Cold packed prior to transfer to CT for scan . patent aware of plan of care .
[2021-12-11 16:09] LABS: MANUAL DIFF FLAG NO
[2021-12-11 16:11] LABS: Basophils Percent Auto 0.4 % (0-2); Hematocrit 46.9 % (42.0-52.0); Hemoglobin 15.1 g/dl (14.0-18.0); Imm Gran Abs Auto 0.04 X10*3/uL (0.00-0.03); Imm Gran Pct Auto 0.4 % (0.0-0.4); Lymphocytes Absolute Auto 2.1 X10*3/uL (1.2-4.9); Lymphocytes Percent Auto 21.2 % (20-40); Mean Corpuscular HGB Conc 32.2 g/dl (31.0-36.0); Mean Corpuscular Hemoglobin 27.7 pg (27.0-33.0); Mean Corpuscular Volume 86.1 fL (80.0-98.0); Monocytes Absolute Auto 1.3 X10*3/uL (0.1-1.2); Monocytes Percent Auto 12.4 % (2-11); Neutrophils Absolute Auto 6.6 x10*3/uL (2.0-8.3); Neutrophils Percent Auto 65.6 % (45-73); Platelet Count 192 X10*3/uL (160-400); Red Blood Count 5.45 X10*6/uL (4.60-5.80); Red Cell Distribution Width 15.3 % (11.0-16.0); White Blood Count 10.1 X10*3/uL (4.8-10.8)
[2021-12-11 16:18] LABS: Partial Thromboplastin Time 30.7 SEC (26.0-36.4)
[2021-12-11 16:21] LABS: Ammonia 23 umol/L (13-55)
--- NOTE | 2021-12-11 16:22 | PHA.MEDREC ---
Pharmacy Consult ? Medication Reconciliation Pharmacy has completed the medication reconciliation.
[2021-12-11 16:23] LABS: INTERNATIONAL NORM RATIO 1.4 (0.9-1.1); Prothrombin Time 16.8 SEC (10.0-13.1)
[2021-12-11 16:26] LABS: VBG Base Excess -10.7 mmol/L; VBG HCO3 14 mmol/L (22-26); VBG pCO2 30 mmHg; VBG pH 7.28 (7.32-7.43); VBG pO2 54 mmHg
[2021-12-11] MEDS: 0.9 % Sodium Chloride 500 ML 999 ML IV ×2 (16:26→17:47)
[2021-12-11 16:28] LABS: Lactic Acid 3.7 mmol/L (0.5-2.0)
[2021-12-11] MEDS: Adenosine 6 MG/2 ML VIAL 12 MG IVPUSH (16:29)
[2021-12-11] MEDS: Adenosine 6 MG/2 ML VIAL IVPUSH (16:29)
[2021-12-11] MEDS: Ketorolac Tromethamine 30 MG/ML VIAL IVPUSH (16:32)
[2021-12-11 16:35] LABS: Alanine Aminotransferase 9 U/L (0-40); Albumin Level 3.1 g/dL (3.5-5.0); Alkaline Phosphatase 45 U/L (39-117); Aspartate Amino Transferase 11 U/L (5-37); Bilirubin Direct 0.2 mg/dL (0.0-0.5); Bilirubin Total 0.4 mg/dL (0.0-1.0); Blood Urea Nitrogen 42 mg/dL (9-16); Creatinine Clr Calc Pharmacy 40.8; Estimated Glomerular Filt Rate 34; Glucose Random 646 mg/dL (60-115); Lipase 20 U/L (8-78); Magnesium 1.9 mg/dL (1.6-2.6); Total Protein 6.1 g/dL (6.5-8.0)
[2021-12-11 16:36] LABS: Troponin-I High Sensitivity 39.6 ng/L (<3.5-35.0)
[2021-12-11 16:37] LABS: B Type Natriuretic Peptide 82 pg/mL (<100)
[2021-12-11 16:49] LABS: Anion Gap 20 (12-20); Calcium 7.2 mg/dL (8.4-10.2); Carbon Dioxide 11 mmol/L (22-29); Chloride 113 mmol/L (96-108); Potassium 3.6 mmol/L (3.3-5.1); Sodium 140 mmol/L (135-145)
[2021-12-11] MEDS: Piperacillin Sodium/Tazobactam 4.5 GM in 0.9 % Sodium Chloride 100 ML IV (16:52)
--- NOTE | 2021-12-11 16:54 | PC.NURSE ---
PT VERY DIFFICULT IV STICK AND LAB DRAW. MULTIPLE ATTEMPTS BY PHLEBOTOMY TO OBTAIN SECOND SET OF CULTURES. CULTURES OBTAINED AND IV ABX STARTED.
[2021-12-11 16:55] LABS: Acetone, serum QL Moderate (Negative)
[2021-12-11 16:55] LABS: COVID-19 Test Invalid (Negative); IDNOW Serial# 55D5AD1C
[2021-12-11] MEDS: Amiodarone/Dextrose 150 MG/100 ML PLAST..BAG 600 MG IV (17:11)
[2021-12-11] MEDS: Insulin Regular, Human 100 UNIT/ML 3 ML VIAL IVPUSH ×3 (17:16→21:39)
[2021-12-11 17:21] LABS: ABG Base Excess -11.2 mmol/L; ABG HCO3 13 mmol/L (22-26); ABG pCO2 25 mmHg (32-45); ABG pH 7.31 (7.35-7.45); ABG pO2 110 mmHg (83-108)
[2021-12-11 17:22] LABS: Appearance Urine Turbid; Color Urine Dark Yellow; Glucose Urine UA 250 mg/dL (Negative); Leukocyte Esterase Urine Trace (Negative); Nitrite Urine Negative (Negative); Specific Gravity - Urine >= 1.030 (1.005-1.025); UMIC TRIGGER UACC YES; Urine Blood Large (3+) (Negative); Urine Ketones 15 mg/dL (Negative); Urine Protein 300 (3+) mg/dL (Neg-Trace)
[2021-12-11] MEDS: 0.9 % Sodium Chloride 1,000 ML 999 ML IV ×2 (17:25→18:51)
[2021-12-11] MEDS: Potassium Chloride/H20 10 MEQ/100 ML PIGGYBACK 100 MEQ IV ×2 (17:33→18:50)
[2021-12-11] MEDS: Amiodarone HCL 900 MG in 0.9 % Sodium Chloride 500 ML 34.53 MG IVCONT (17:37)
[2021-12-11 17:56] LABS: Bacteria Urine 1+ (None Seen); Granular Casts Urine Present; RBC Urine >20 /HPF (0-2); UACC Culture Trigger YES
[2021-12-11 18:01] LABS: Venous Blood Gas Refer to POC result
[2021-12-11 18:07] LABS: Reflex Lactate? Lactic Acid Added
[2021-12-11] MEDS: metroNIDAZOLE/NS 500 MG/100 ML PIGGYBACK 100 MG IV (18:36)
[2021-12-11 18:42] LABS: Glucose, Whole Blood 448 mg/dL (60-115)
--- NOTE | 2021-12-11 18:59 | PC.NURSE ---
Pt moved to room 4, no issues. Now on 2 L NC stat @ 96%, respiration at 38. Pt open eyes to voice and touch, A & O X 3 ,speech is garbled, possibly baseline. Resting comfortably. MAP 76. No further episodes of VTach. Remains sinus tach 117. One large loose BM, linens changed.
[2021-12-11 19:09] LABS: Influenza A PCR NEGATIVE (Negative); Influenza B PCR NEGATIVE (Negative); Resp Syncy Virus RNA Qual PCR NEGATIVE (Negative); SARS COV2 PCR INHOUSE NEGATIVE (Negative)
[2021-12-11 19:22] LABS: C Reactive Protein 1.31 mg/dL (< or = 0.50)
[2021-12-11 19:23] LABS: Troponin-I High Sensitivity 43.3 ng/L (<3.5-35.0)
[2021-12-11 19:55] LABS: Erythrocyte Sedimentation Rate 29 MM/HR (0-15)
[2021-12-11] MEDS: Magnesium Sulfate/H2O 2 GM/50 ML PIGGYBACK IV (20:15)
[2021-12-11] MEDS: Potassium Chloride Packet 20 MEQ PACKET 40 MEQ PO (20:42)
[2021-12-11 20:47] LABS: Reflex Lactate? 2 Y
--- NOTE | 2021-12-11 20:52 | ECG_ITS ---
Test Reason : SANABL Blood Pressure : / mmHG Vent. Rate : 118 BPM Atrial Rate : 118 BPM P-R Int : 184 ms QRS Dur : 114 ms QT Int : 340 ms P-R-T Axes : 042 -67 061 degrees QTc Int : 476 ms Sinus tachycardia Left axis deviation Possible Lateral infarct , age undetermined Inferior infarct , age undetermined Abnormal ECG When compared with ECG of 11-DEC-2021 16:20, Heart rate has decreased Referred By: Rosys Wyatt Electronically Signed By:MARY VELASCO
[2021-12-11 20:54] LABS: Anion Gap 18 (12-20); Blood Urea Nitrogen 43 mg/dL (9-16); Calcium 7.4 mg/dL (8.4-10.2); Carbon Dioxide 13 mmol/L (22-29); Chloride 113 mmol/L (96-108); Creatinine Clr Calc Pharmacy 48.3; Estimated Glomerular Filt Rate 41; Glucose Random 580 mg/dL (60-115); Sodium 140 mmol/L (135-145)
[2021-12-11 21:06] LABS: Glucose, Whole Blood 441 mg/dL (60-115)
[2021-12-11] MEDS: Sodium Bicarbonate 8.4% 50 MEQ/50 ML SYRINGE IVPUSH (21:39)
[2021-12-11] MEDS: Lactated Ringers 1,000 ML 999 ML IV (21:57)
[2021-12-11 22:15] LABS: Amphetamine Screen Urine Not Detected (Not Detect); Barbiturates, Urine Not Detected (Not Detect); Benzodiazepines Screen Urine Not Detected (Not Detect); Cannabinoid Screen Urine Not Detected (Not Detect); Cocaine Screen Urine Not Detected (Not Detect); Fentanyl, urine Not Detected (Not Detect); Opiate Screen Urine Not Detected (Not Detect); Phencyclidine Screen Urine Not Detected (Not Detect)
--- NOTE | 2021-12-11 22:26 | P.HPHOSP_ITS ---
History of Present Illness Date of Service: 12/11/21 Chief Complaint: Altered mental status 61-year-old male with past medical history of COPD, diabetes, hypertension, HLD, MDD, KILEY, PTSD, schizoaffective disorder, with intellectual disability, wheelchair-bound, sent to the hospital from nursing with fever, tachycardia, and altered mental status. Patient is awake, oriented to self but not place or time. He is unable to answer many of my questions appropriately. on arrival to the ED patient was found to have a temp of 105 degrees, heart rate of 150, respiratory rate of 20, blood pressure 95/62, patient was also found to be in wide complex tachycardia, and went into monomorphic V-tach that spontaneously broke while in the ED. after receiving Tylenol, IV hydration, patient BP, heart rate, and temperature improved. And patient became more awake, and conversive. patient heart rate converted to sinus tachycardia with rate in the 90s to 110s. On his initial lab review patient was found to have a WBC count of 10.1, hemoglobin of 15.1, ESR of 29, INR of 1.4, pH of 7.3, CO2 of 25, bicarb of 11, creatinine of 2, glucose in the 500s, with positive acetone but close gap x2, patient also had a lactic acid of 3.7 that improved with IV fluids, UA is positive for leukocyte Estrace and WBC Chest x-ray, head CT, chest CT, show no abnormal findings, Abdominal pelvic CT shows large volume of stool in the rectum and sigmoid with mild bowel wall thickening raising a question stercoral colitis. Patient started IV antibiotics, fluids and will be admitted for further management as he is currently stable for inpatient admission and does not meet ICU criteria for transfer. of note pt had similar presentation to [facility] in recent months and at that time no source of fever was found Review of Systems Review of Systems: Yes all other systems are reviewed and are negative [facility] Medical History Anxiety Atherosclerotic heart disease of [place] coronary artery without angina pectoris Bipolar disorder COPD (chronic obstructive pulmonary disease) Delusional disorder Diabetes Dysphagia GERD (gastroesophageal reflux disease) HTN (hypertension) Hyperlipidemia Insomnia MDD (major depressive disorder) Obesity KILEY (obstructive sleep apnea) PTSD (post-traumatic stress disorder) Schizoaffective disorder Social History Advance Directives: No Advance Directives Information Provided: No Meds Allergies Allergy/AdvReac Type Severity Reaction Status Date / Time Sulfa (Sulfonamide Allergy Unknown Verified 12/11/21 15:09 Antibiotics) thiothixene Allergy Unknown Verified 12/11/21 15:12 anticholinergics Allergy Unknown Uncoded 12/11/21 15:14 trihexphenidyl Allergy Unknown Uncoded 12/11/21 15:13 Active Medications: Current Medications Lactated Ringer's (Lr) 1,000 mls @ 999 mls/hr IV .Q1H1M SHA Stop: 12/11/21 22:30 Last Admin: 12/11/21 21:57 Dose: 999 mls/hr Pharmacy Consult (Consult Rx Perform Med Rec) 1 each MISCELLANE ONCE PRN PRN Reason: Consult order Home Medications Medication Instructions Recorded Confirmed Last Taken Type acetaminophen 325 mg tablet 650 mg PO Q6H 09/09/21 12/11/21 09/09/21 History amlodipine 10 mg tablet 10 mg PO DAILY 09/09/21 12/11/21 09/09/21 History aspirin 81 mg chewable tablet 81 mg PO DAILY 09/09/21 12/11/21 09/09/21 History cetirizine 10 mg tablet 10 mg PO DAILY 09/09/21 12/11/21 09/09/21 History clozapine 50 mg tablet 50 mg PO BEDTIME 09/09/21 12/11/21 09/08/21 History docusate sodium 100 mg tablet 100 mg PO BID 09/09/21 12/11/21 09/09/21 History dulaglutide 4.5 mg/0.5 mL 4.5 mg subcut [place] 09/09/21 12/11/21 12/07/21 History subcutaneous pen injector haloperidol 2 mg tablet 8 mg PO BEDTIME 09/09/21 12/11/21 09/08/21 History haloperidol 5 mg tablet 5 mg PO DAILY PRN Psychosis 09/09/21 12/11/21 Unknown History isosorbide mononitrate 30 mg 30 mg PO DAILY 09/09/21 12/11/21 09/09/21 History tablet,extended release 24 hr lactulose 10 gram/15 mL oral 20 g PO BID 09/09/21 12/11/21 09/09/21 History solution levothyroxine 25 mcg tablet 25 mcg PO DAILY@0600 09/09/21 12/11/21 09/09/21 History lorazepam 0.5 mg tablet (Ativan) 0.25 mg PO Q8H PRN Anxiety 09/09/21 12/11/21 Unknown History magnesium chloride 71.5 mg 143 mg PO DAILY 09/09/21 12/11/21 Unknown History (magnesium chloride) tablet,delayed release magnesium hydroxide 400 mg/5 mL 400 mg PO BEDTIME 09/09/21 12/11/21 Unknown History oral suspension (Milk of Magnesia) metformin 1,000 mg tablet 1,000 mg PO BID 09/09/21 12/11/21 09/09/21 History metoprolol tartrate 50 mg tablet 50 mg PO DAILY 09/09/21 12/11/21 09/09/21 History mirtazapine 15 mg tablet 15 mg PO BEDTIME 09/09/21 12/11/21 09/08/21 History niacin 500 mg tablet 500 mg PO DAILY 09/09/21 12/11/21 09/09/21 History omeprazole 20 mg tablet,delayed 20 mg PO DAILY 09/09/21 12/11/21 09/09/21 History release rosuvastatin 40 mg tablet 40 mg PO BEDTIME 09/09/21 12/11/21 09/08/21 History sennosides 8.6 mg tablet (senna) 8.6 mg PO BEDTIME 09/09/21 12/11/21 09/08/21 History simethicone 80 mg chewable tablet 80 mg PO TIDAC 09/09/21 12/11/21 09/09/21 History topiramate 100 mg tablet (Topamax) 100 mg PO BID 09/09/21 12/11/21 09/09/21 History valproic acid (as sodium salt) 250 1,250 mg PO BID 09/09/21 12/11/21 09/09/21 History mg/5 mL oral solution insulin lispro 100 unit/mL 1 sliding scale dose subcut 12/11/21 12/11/21 Unknown History subcutaneous pen USEASDIRECTD lidocaine 4 % topical patch 1 patch topical DAILY 12/11/21 12/11/21 Unknown History nystatin 100,000 unit/gram topical 1 appl topical BID 12/11/21 12/11/21 Unknown History powder Physical Exam Vital Signs and Narrative: Vital Signs: Last Vital Signs Temp 99.0 F 12/11/21 21:36 Pulse 116 H 12/11/21 21:36 Resp 30 H 12/11/21 21:36 BP 109/50 L 12/11/21 21:36 Pulse Ox 93 12/11/21 21:36 O2 Del Method 12/11/21 21:36 O2 Flow Rate 2.5 12/11/21 21:36 BMI result Body Mass Index 32.1 Const: Other: patient awake, alert, oriented to self not place or time diaphoretic General: cooperative and no acute distress HEENT: Other: IJ present on the right Eyes: General: appearance normal, both eyes and all related structures Resp: Effort & Inspection: normal respiratory effort Auscultation: clear to auscultation bilaterally Cardio: Rate: regular rate Rhythm: regular rhythm GI: Palpation (GI): Soft to palpation Auscultation: normal bowel sounds Skin: General skin exam: no rashes or lesions noted Neuro: Cognition (Neuro): normal cognition Extrem: General: Yes normal to inspection and Yes no pedal edema Results Labs CBC and Chem 7: 12/11/21 16:03 12/11/21 20:21 Labs: Laboratory Results - last 24 hr 12/11/21 12/11/21 12/11/21 16:00 16:00 16:00 MCV MCH MCHC RDW Plt Count MPV Immature Gran % (Auto) Neut % (Auto) Lymph % (Auto) [place] % (Auto) Eos % (Auto) Baso % (Auto) Lymph # (Auto) [place] # (Auto) Eos # (Auto) Baso # (Auto) Abs Immat Gran (auto) Absolute Neuts (auto) Absolute Nucleated RBC Nucleated RBC % (auto) ESR PT 16.8 H INR 1.4 H APTT 30.7 O2 Saturation ABG pH at Pt Temp ABG pCO2 at Pt Temp ABG pO2 at Pt Temp ABG HCO3 ABG Base Excess (Actual) VBG pH VBG pCO2 VBG pO2 VBG HCO3 VBG O2 Saturation VBG Base Excess Anion Gap Estim Creat Clear Calc Estimated GFR POC Glucose Random Glucose Lactic Acid 3.7 H* Lactic Acid F/U @ 2Hr Calcium Magnesium Total Bilirubin Direct Bilirubin AST ALT Alkaline Phosphatase Ammonia Total Creatine Kinase C-Reactive Protein B-Natriuretic Peptide Total Protein Albumin Lipase Procalcitonin Urine Color Urine Appearance Urine pH Ur Specific [place] Urine Protein Urine Glucose (UA) Urine Ketones Urine Blood Urine Nitrite Ur Leukocyte Esterase Urine RBC Urine WBC Ur Squamous Epith Cells Urine Bacteria Hyaline Casts Granular Casts Urine Opiates Screen Urine Fentanyl Screen Ur Barbiturates Screen Ur Phencyclidine Scrn Ur Amphetamines Screen U Benzodiazepines Scrn Urine Cocaine Screen U Marijuana (THC) Screen Acetone, Qual Moderate H COVID-19 ([facility]) COVID-19 Clin Com Influenza Type A (PCR) Influenza Type B (PCR) RSV RNA Qual (PCR) SARS-CoV-2 RNA (RT-PCR) 12/11/21 12/11/21 12/11/21 16:01 16:02 16:02 MCV MCH MCHC RDW Plt Count MPV Immature Gran % (Auto) Neut % (Auto) Lymph % (Auto) [place] % (Auto) Eos % (Auto) Baso % (Auto) Lymph # (Auto) [place] # (Auto) Eos # (Auto) Baso # (Auto) Abs Immat Gran (auto) Absolute Neuts (auto) Absolute Nucleated RBC Nucleated RBC % (auto) ESR PT INR APTT O2 Saturation ABG pH at Pt Temp ABG pCO2 at Pt Temp ABG pO2 at Pt Temp ABG HCO3 ABG Base Excess (Actual) VBG pH VBG pCO2 VBG pO2 VBG HCO3 VBG O2 Saturation VBG Base Excess Anion Gap 20 Estim Creat Clear Calc 40.8 Estimated GFR 34 POC Glucose Random Glucose 646 H* Lactic Acid Lactic Acid F/U @ 2Hr Calcium 7.2 L D Magnesium 1.9 Total Bilirubin 0.4 Direct Bilirubin 0.2 AST 11 ALT 9 Alkaline Phosphatase 45 D Ammonia 23 Total Creatine Kinase 100 C-Reactive Protein 1.31 H B-Natriuretic Peptide Total Protein 6.1 L Albumin 3.1 L Lipase 20 Procalcitonin 0.30 Urine Color Urine Appearance Urine pH Ur Specific [place] Urine Protein Urine Glucose (UA) Urine Ketones Urine Blood Urine Nitrite Ur Leukocyte Esterase Urine RBC Urine WBC Ur Squamous Epith Cells Urine Bacteria Hyaline Casts Granular Casts Urine Opiates Screen Urine Fentanyl Screen Ur Barbiturates Screen Ur Phencyclidine Scrn Ur Amphetamines Screen U Benzodiazepines Scrn Urine Cocaine Screen U Marijuana (THC) Screen Acetone, Qual COVID-19 ([facility]) COVID-19 Clin Com Influenza Type A (PCR) Influenza Type B (PCR) RSV RNA Qual (PCR) SARS-CoV-2 RNA (RT-PCR) 12/11/21 12/11/21 12/11/21 16:03 16:03 16:03 MCV 86.1 MCH 27.7 MCHC 32.2 RDW 15.3 Plt Count 192 MPV 11.0 Immature Gran % (Auto) 0.4 Neut % (Auto) 65.6 Lymph % (Auto) 21.2 [place] % (Auto) 12.4 H Eos % (Auto) 0.0 Baso % (Auto) 0.4 Lymph # (Auto) 2.1 [place] # (Auto) 1.3 H Eos # (Auto) 0.0 Baso # (Auto) 0.0 Abs Immat Gran (auto) 0.04 H Absolute Neuts (auto) 6.6 Absolute Nucleated RBC 0.000 Nucleated RBC % (auto) 0.0 ESR 29 H PT INR APTT O2 Saturation ABG pH at Pt Temp ABG pCO2 at Pt Temp ABG pO2 at Pt Temp ABG HCO3 ABG Base Excess (Actual) VBG pH VBG pCO2 VBG pO2 VBG HCO3 VBG O2 Saturation VBG Base Excess Anion Gap Estim Creat Clear Calc Estimated GFR POC Glucose Random Glucose Lactic Acid Lactic Acid F/U @ 2Hr Calcium Magnesium Total Bilirubin Direct Bilirubin AST ALT Alkaline Phosphatase Ammonia Total Creatine Kinase C-Reactive Protein B-Natriuretic Peptide 82 Total Protein Albumin Lipase Procalcitonin Urine Color Urine Appearance Urine pH Ur Specific [place] Urine Protein Urine Glucose (UA) Urine Ketones Urine Blood Urine Nitrite Ur Leukocyte Esterase Urine RBC Urine WBC Ur Squamous Epith Cells Urine Bacteria Hyaline Casts Granular Casts Urine Opiates Screen Urine Fentanyl Screen Ur Barbiturates Screen Ur Phencyclidine Scrn Ur Amphetamines Screen U Benzodiazepines Scrn Urine Cocaine Screen U Marijuana (THC) Screen Acetone, Qual COVID-19 ([facility]) COVID-19 Clin Com Influenza Type A (PCR) Influenza Type B (PCR) RSV RNA Qual (PCR) SARS-CoV-2 RNA (RT-PCR) 12/11/21 12/11/21 12/11/21 16:04 16:12 17:14 MCV MCH MCHC RDW Plt Count MPV Immature Gran % (Auto) Neut % (Auto) Lymph % (Auto) [place] % (Auto) Eos % (Auto) Baso % (Auto) Lymph # (Auto) [place] # (Auto) Eos # (Auto) Baso # (Auto) Abs Immat Gran (auto) Absolute Neuts (auto) Absolute Nucleated RBC Nucleated RBC % (auto) ESR PT INR APTT O2 Saturation ABG pH at Pt Temp ABG pCO2 at Pt Temp ABG pO2 at Pt Temp ABG HCO3 ABG Base Excess (Actual) VBG pH 7.28 L VBG pCO2 30 VBG pO2 54 VBG HCO3 14 L VBG O2 Saturation 79.0 VBG Base Excess -10.7 Anion Gap Estim Creat Clear Calc Estimated GFR POC Glucose Random Glucose Lactic Acid Lactic Acid F/U @ 2Hr Calcium Magnesium Total Bilirubin Direct Bilirubin AST ALT Alkaline Phosphatase Ammonia Total Creatine Kinase C-Reactive Protein B-Natriuretic Peptide Total Protein Albumin Lipase Procalcitonin Urine Color Dark Yellow Urine Appearance Turbid Urine pH 5.0 Ur Specific [place] >= 1.030 H Urine Protein 300 (3+) H Urine Glucose (UA) 250 H Urine Ketones 15 Urine Blood Large (3+) H Urine Nitrite Negative Ur Leukocyte Esterase Trace H Urine RBC >20 H Urine WBC 6-10 Ur Squamous Epith Cells 6-10 Urine Bacteria 1+ Hyaline Casts 3-5 Granular Casts Present Urine Opiates Screen Urine Fentanyl Screen Ur Barbiturates Screen Ur Phencyclidine Scrn Ur Amphetamines Screen U Benzodiazepines Scrn Urine Cocaine Screen U Marijuana (THC) Screen Acetone, Qual COVID-19 ([facility]) Invalid COVID-19 Clin Com See Note Influenza Type A (PCR) Influenza Type B (PCR) RSV RNA Qual (PCR) SARS-CoV-2 RNA (RT-PCR) 12/11/21 12/11/21 12/11/21 17:15 18:24 18:38 MCV MCH MCHC RDW Plt Count MPV Immature Gran % (Auto) Neut % (Auto) Lymph % (Auto) [place] % (Auto) Eos % (Auto) Baso % (Auto) Lymph # (Auto) [place] # (Auto) Eos # (Auto) Baso # (Auto) Abs Immat Gran (auto) Absolute Neuts (auto) Absolute Nucleated RBC Nucleated RBC % (auto) ESR PT INR APTT O2 Saturation 98.0 ABG pH at Pt Temp 7.31 L ABG pCO2 at Pt Temp 25 L ABG pO2 at Pt Temp 110 H ABG HCO3 13 L ABG Base Excess (Actual) -11.2 VBG pH VBG pCO2 VBG pO2 VBG HCO3 VBG O2 Saturation VBG Base Excess Anion Gap Estim Creat Clear Calc Estimated GFR POC Glucose 448 H* Random Glucose Lactic Acid Lactic Acid F/U @ 2Hr Calcium Magnesium Total Bilirubin Direct Bilirubin AST ALT Alkaline Phosphatase Ammonia Total Creatine Kinase C-Reactive Protein B-Natriuretic Peptide Total Protein Albumin Lipase Procalcitonin Urine Color Urine Appearance Urine pH Ur Specific [place] Urine Protein Urine Glucose (UA) Urine Ketones Urine Blood Urine Nitrite Ur Leukocyte Esterase Urine RBC Urine WBC Ur Squamous Epith Cells Urine Bacteria Hyaline Casts Granular Casts Urine Opiates Screen Urine Fentanyl Screen Ur Barbiturates Screen Ur Phencyclidine Scrn Ur Amphetamines Screen U Benzodiazepines Scrn Urine Cocaine Screen U Marijuana (THC) Screen Acetone, Qual COVID-19 ([facility]) COVID-19 Clin Com Influenza Type A (PCR) NEGATIVE Influenza Type B (PCR) NEGATIVE RSV RNA Qual (PCR) NEGATIVE SARS-CoV-2 RNA (RT-PCR) NEGATIVE 12/11/21 12/11/21 12/11/21 18:44 20:21 21:01 MCV MCH MCHC RDW Plt Count MPV Immature Gran % (Auto) Neut % (Auto) Lymph % (Auto) [place] % (Auto) Eos % (Auto) Baso % (Auto) Lymph # (Auto) [place] # (Auto) Eos # (Auto) Baso # (Auto) Abs Immat Gran (auto) Absolute Neuts (auto) Absolute Nucleated RBC Nucleated RBC % (auto) ESR PT INR APTT O2 Saturation ABG pH at Pt Temp ABG pCO2 at Pt Temp ABG pO2 at Pt Temp ABG HCO3 ABG Base Excess (Actual) VBG pH VBG pCO2 VBG pO2 VBG HCO3 VBG O2 Saturation VBG Base Excess Anion Gap 18 Estim Creat Clear Calc 48.3 Estimated GFR 41 POC Glucose 441 H* Random Glucose 580 H* Lactic Acid Lactic Acid F/U @ 2Hr 3.0 H* Calcium 7.4 L Magnesium Total Bilirubin Direct Bilirubin AST ALT Alkaline Phosphatase Ammonia Total Creatine Kinase C-Reactive Protein B-Natriuretic Peptide Total Protein Albumin Lipase Procalcitonin Urine Color Urine Appearance Urine pH Ur Specific [place] Urine Protein Urine Glucose (UA) Urine Ketones Urine Blood Urine Nitrite Ur Leukocyte Esterase Urine RBC Urine WBC Ur Squamous Epith Cells Urine Bacteria Hyaline Casts Granular Casts Urine Opiates Screen Urine Fentanyl Screen Ur Barbiturates Screen Ur Phencyclidine Scrn Ur Amphetamines Screen U Benzodiazepines Scrn Urine Cocaine Screen U Marijuana (THC) Screen Acetone, Qual COVID-19 ([facility]) COVID-19 Clin Com Influenza Type A (PCR) Influenza Type B (PCR) RSV RNA Qual (PCR) SARS-CoV-2 RNA (RT-PCR) 12/11/21 21:53 MCV MCH MCHC RDW Plt Count MPV Immature Gran % (Auto) Neut % (Auto) Lymph % (Auto) [place] % (Auto) Eos % (Auto) Baso % (Auto) Lymph # (Auto) [place] # (Auto) Eos # (Auto) Baso # (Auto) Abs Immat Gran (auto) Absolute Neuts (auto) Absolute Nucleated RBC Nucleated RBC % (auto) ESR PT INR APTT O2 Saturation ABG pH at Pt Temp ABG pCO2 at Pt Temp ABG pO2 at Pt Temp ABG HCO3 ABG Base Excess (Actual) VBG pH VBG pCO2 VBG pO2 VBG HCO3 VBG O2 Saturation VBG Base Excess Anion Gap Estim Creat Clear Calc Estimated GFR POC Glucose Random Glucose Lactic Acid Lactic Acid F/U @ 2Hr Calcium Magnesium Total Bilirubin Direct Bilirubin AST ALT Alkaline Phosphatase Ammonia Total Creatine Kinase C-Reactive Protein B-Natriuretic Peptide Total Protein Albumin Lipase Procalcitonin Urine Color Urine Appearance Urine pH Ur Specific [place] Urine Protein Urine Glucose (UA) Urine Ketones Urine Blood Urine Nitrite Ur Leukocyte Esterase Urine RBC Urine WBC Ur Squamous Epith Cells Urine Bacteria Hyaline Casts Granular Casts Urine Opiates Screen Not Detected Urine Fentanyl Screen Not Detected Ur Barbiturates Screen Not Detected Ur Phencyclidine Scrn Not Detected Ur Amphetamines Screen Not Detected U Benzodiazepines Scrn Not Detected Urine Cocaine Screen Not Detected U Marijuana (THC) Screen Not Detected Acetone, Qual COVID-19 ([facility]) COVID-19 Clin Com Influenza Type A (PCR) Influenza Type B (PCR) RSV RNA Qual (PCR) SARS-CoV-2 RNA (RT-PCR) Imaging Radiologist's Impressions: Impressions Abdomen/Pelvis CT 12/11/21 15:56 IMPRESSION: 1. Large volume of stool in the rectum and sigmoid with mild bowel wall thickening raising a question of stercoral colitis, though no surrounding inflammation of the mesentery. Volume of stool has increased since the exam of 09/09/2021. 2. Hepatosplenomegaly. 3. Cholelithiasis. 4. Small nonobstructive left renal stones. No hydronephrosis. 5. Redemonstration of small hyperattenuating lesion in the lower pole of the left kidney, likely a hypodense cyst. This is a Bosniak 2 lesion. No further workup would be suggested. 6. No acute abnormality of the chest. Chest CT 12/11/21 15:56 IMPRESSION: 1. Large volume of stool in the rectum and sigmoid with mild bowel wall thickening raising a question of stercoral colitis, though no surrounding inflammation of the mesentery. Volume of stool has increased since the exam of 09/09/2021. 2. Hepatosplenomegaly. 3. Cholelithiasis. 4. Small nonobstructive left renal stones. No hydronephrosis. 5. Redemonstration of small hyperattenuating lesion in the lower pole of the left kidney, likely a hypodense cyst. This is a Bosniak 2 lesion. No further workup would be suggested. 6. No acute abnormality of the chest. Head CT 12/11/21 15:56 IMPRESSION: No acute intracranial pathology. Chest X-Ray 12/11/21 18:21 IMPRESSION: No pneumothorax status post catheter placement. Assessment and Plan (1) Sepsis: Status: Acute (2) Encephalopathy: Status: Acute (3) UTI (urinary tract infection): Status: Acute (4) DKA (diabetic ketoacidosis): Status: Acute (5) V-tach: Status: Acute (6) Wide-complex tachycardia: Status: Acute Plan 61-year-old male with past medical history of diabetes, hypertension, schizoaffective disorder, presents to the hospital with altered mental status, fever, tachycardia, and had a run of V-tach while in the ED. # sepsis - the only available source at this time is his UTI - he has no leukocytosis but has tachycardia, tachypnea, and febrile - chest x-ray, head CT, and abdominal CT showing no significant source of the acute infection - blood cultures drawn, will start him on broad-spectrum IV antibiotics, follow cultures - continue IV fluids # encephalopathy - likely toxic metabolic syndrome - patient's mentation has improved, he is alert oriented to self not place or time, able to answer simple questions and conversing with the nurses - continue to treat underlying infection, continue IV fluids, continue IV antibiotics, fever control # UTI - positive UA - follow cultures # DKA - patient has acetones, as well as elevated glucose - pt received insulin with Gap closed x2 - will continue POC and insulin subq as needed given the closed Gap x2 - Continue IVF # Vtach - pt had a run of Vtach while in ed that resolved spontaneously - Mag of 1.9 and K >3.5 - optimize Mag and K - given Iv mag and Potassium - continue to monitor on telemetry # HTN - hold antihypertensives in the setting of hypotension - continue IVF # DM - hold oral antihyperglyceimics - LDSSI - DM diet DVT ppx: heparin Pt will require a minimum 2 night hospital stay for IV antibiotics, Quality Stroke Does the patient have a stroke diagnosis?: No VTE Prior VTE?: No VTE Risk Level:: Medical - moderate - high VTE Device Contraindication: Treatment Not Indicated VTE Drug Contraindication: N/A - Med Ordered
[2021-12-11 22:28] LABS: ~Lactic Acid-LAB USE ONLY 2.6 mmol/L (0.5-2.0)
--- NOTE | 2021-12-11 22:41 | PHA.PROG ---
Admission Date/Time: December 11, 2021 22:17 Indication: sepsis Weight in k.3 kg Adjusted body weight in Kg: [place] body weight in Kg: Obesity Dosing Indication % IBW: Serum Creatinine - Last 168 Hours 12/11/21 12/11/21 16:02 20:21 Creatinine 2.00 H 1.69 H Estimated CrCl and GFR - Last 168 Hours 12/11/21 12/11/21 16:02 20:21 Estim Creat Clear Calc 40.8 48.3 Estimated GFR 34 41 Vancomycin Loading Dose: 2000mg X 1 Current Vancomycin Dosing Regimen: 500mg Q12H Vancomycin Monitoring using AUC goal of 400 - 600 range with trough as surrogate marker: 527mg/L Date and Time for next Vancomycin Level to be drawn: 12/13/21 @0600 Pharmacist Comments on Vancomycin Plan: will continue to montior renal function Vancomycin dosing will take advantage of [employer] as a clinical decision support tool that uses Bayesian modeling to calculate individual patient's pharmacokinetic parameters and forecast the patient's drug concentration time course with the target goal AUC 24 range of 400 - 600 mg/L/hr.
[2021-12-11] MEDS: Lactated Ringers 1,000 ML 100 ML IVCONT (23:13)
[2021-12-11] MEDS: Heparin Sodium,Porcine 5,000 UNIT/ML VIAL 5000 UNIT SUBCUT (23:13)
[2021-12-11] MEDS: Piperacillin Sodium/Tazobactam 3.375 GM in 0.9 % Sodium Chloride 50 ML IV (23:14)
[2021-12-12] VITALS (10 sets, daily range): BP systolic 68–115; BP diastolic 39–85; PULSE 122–146; RESP 33–55; TEMP 34.7–39.3; O2SAT 78–95
--- NOTE | 2021-12-12 | ECG_ITS ---
Test Reason : TACHYCARDIA Blood Pressure : / mmHG Vent. Rate : 144 BPM Atrial Rate : 144 BPM P-R Int : 144 ms QRS Dur : 110 ms QT Int : 302 ms P-R-T Axes : 000 -87 025 degrees QTc Int : 467 ms Sinus tachycardia Left axis deviation Incomplete right bundle branch block Septal infarct , age undetermined Lateral infarct , age undetermined Inferior infarct , age undetermined Abnormal ECG When compared with ECG of 11-DEC-2021 20:55, Heart rate has increased Incomplete right bundle branch block is now Present Referred By: Rossy Wyatt Electronically Signed By:MARY VELASCO
[2021-12-12] MEDS: Lactated Ringers 1,000 ML 999 ML IV ×2 (00:18→03:09)
[2021-12-12] MEDS: Acetaminophen 325 MG TABLET 650 MG PO (02:00)
--- NOTE | 2021-12-12 03:09 | PC.NURSE ---
Pt becoming febrile, increased hypotension, and tachycardic. Provider initially ordered lopressor to treat tachycardia but pt's BP would not be supported with that med. Provider informed of hypotension SBP <90. Provider then ordered another 1000 mL bolus of LR. This RN discussed plan to transfer pt to ICU. LR is hanging with a pressure bag to increase the rate of infusion.
[2021-12-12] MEDS: Ketorolac Tromethamine 15 MG/ML VIAL IVPUSH (03:49)
[2021-12-12] MEDS: Albumin Human 25 % 100 ML IV ×2 (03:52→05:00)
--- NOTE | 2021-12-12 04:28 | PC.NURSE ---
Pt is not responding to meds for fever and hypotension. Hospitalist connected and plan is to reach out to ICU to discuss continued care.
[2021-12-12 04:47] LABS: Glucose, Whole Blood 448 mg/dL (60-115)
--- NOTE | 2021-12-12 05:00 | PM.EVENT ---
Event Note Date of Service: 12/12/21 Event Note: around 04:00 patient developed high fever of around 102, tachycardia, has also now developed tachypnea, will obtain VBG, stat BMP, acetone, glucose remains in the 400s. Treat with 15 minutes of list pro. patient received 5 L of IV fluids overall. ICU attending was contacted.
[2021-12-12] MEDS: Phenylephrine HCL 10 MG/ML VIAL IVPUSH (05:15)
[2021-12-12 05:19] LABS: MANUAL DIFF FLAG NO
[2021-12-12] MEDS: Insulin Lispro 100 UNIT/ML 3 ML VIAL 15 UNIT SUBCUT (05:19)
[2021-12-12 05:20] LABS: Basophils Percent Auto 0.4 % (0-2); Eosinophils Percent Auto 0.4 % (0-4); Hematocrit 40.2 % (42.0-52.0); Hemoglobin 12.4 g/dl (14.0-18.0); Imm Gran Pct Auto 1.1 % (0.0-0.4); Lymphocytes Absolute Auto 1.7 X10*3/uL (1.2-4.9); Lymphocytes Percent Auto 18.7 % (20-40); Mean Corpuscular HGB Conc 30.8 g/dl (31.0-36.0); Mean Corpuscular Volume 90.7 fL (80.0-98.0); Mean Platelet Volume 10.8 fL (9.4-12.4); Monocytes Absolute Auto 0.7 X10*3/uL (0.1-1.2); Monocytes Percent Auto 7.9 % (2-11); Neutrophils Absolute Auto 6.5 x10*3/uL (2.0-8.3); Neutrophils Percent Auto 71.5 % (45-73); Platelet Count 192 X10*3/uL (160-400); Red Blood Count 4.43 X10*6/uL (4.60-5.80); Red Cell Distribution Width 15.9 % (11.0-16.0); White Blood Count 9.1 X10*3/uL (4.8-10.8)
[2021-12-12 05:27] LABS: Venous Blood Gas Refer to POC result
[2021-12-12 05:28] LABS: VBG Base Excess -18.8 mmol/L; VBG HCO3 10 mmol/L (22-26); VBG pCO2 33 mmHg; VBG pH 7.08 (7.32-7.43); VBG pO2 45 mmHg
[2021-12-12 05:31] LABS: Acetone, serum QL Negative (Negative)
[2021-12-12] MEDS: Sodium Bicarbonate 8.4% 50 MEQ/50 ML SYRINGE IVPUSH (05:36)
[2021-12-12] MEDS: fentaNYL citrate/PF 100 MCG/2 ML VIAL 25 MCG IVPUSH (05:38)
[2021-12-12 05:39] LABS: Lactic Acid 8.6 mmol/L (0.5-2.0)
[2021-12-12 05:44] LABS: Blood Urea Nitrogen 43 mg/dL (9-16); Calcium 7.9 mg/dL (8.4-10.2); Creatinine Clr Calc Pharmacy 36.1; Estimated Glomerular Filt Rate 30
[2021-12-12 05:47] LABS: B Type Natriuretic Peptide 207 pg/mL (<100); Troponin-I High Sensitivity 40.4 ng/L (<3.5-35.0)
[2021-12-12 05:52] LABS: Anion Gap 25 (12-20); Carbon Dioxide 10 mmol/L (22-29); Chloride 111 mmol/L (96-108); Glucose Random 677 mg/dL (60-115); Sodium 141 mmol/L (135-145)
--- NOTE | 2021-12-12 06:37 | PC.NURSE ---
Contract Administration Specialist came to ED to assess the pt and found him to be hypotentive with BP at 60/30. ICU provider ordered this RN to start a Levophed drip at 0.1 mcg/kg/min at 05:10. 10 minutes later pt's BP had not responded to the med so ICU provider ordered an increase in Levophed drip to 0.2 mcg/kg/min. After another 5 minutes and no significant increase in BP the ICU provider ordered this RN to increase Levophed drip to 0.3 mcg/kg/min. ICU provider then ordered for another increase up to 0.4 mcg/kg/min prior to preparing for transport to the ICU. Prior to transport to ICU, pt's BP was 90/40 so this RN increased Levophed drip to 0.42 mcg/kg/hr according to our protocols.
--- NOTE | 2021-12-12 06:58 | W.PM.CCHP ---
Procedures Date of Service Date of Service: 12/12/21 Intubation Consent for Procedure: Emergent-no informed consent obtained Time out performed: Yes Sedative: propofol Mg given: 30 Paralytic: rocuronium Mg given: 50 Laryngoscope: fiber optic video scope ET tube size: 7.5 Tube secured depth (cm): 22 Tube secured location: lips Tube placement confirmation: visualized tube passing through cords, equal breath sounds bilaterally, no breath sounds over epigastrium and confirmation by capnometry Patient tolerated procedure: well and no complications Intubation complications: none
--- NOTE | 2021-12-12 07:01 | P.CONCC_ITS ---
History of Present Illness Data of Consult Service Date: 12/12/21 Requesting physician: Chandu Chavarria Primary Care Provider: Desirae Yin MD HPI Reason for consult: hypotension 61-year-old male with past medical history of COPD, diabetes, HTN, HLD, MDD, KILEY, PTSD, schizoaffective disorder, with intellectual disability, wheelchair- bound, sent to the hospital from nursing with fever, tachycardia, and altered mental status.? Dr Ortega had a consult on this patient 12/11 in the afternoon and he recommended the patient be transferred to a tertiary facility as he is unstable and we currently have no ICU beds available. At 7pm, I went to the ED to speak with the ED provider for this patient to inquire why he hadn't been transferred and was told he had stabilized ; see labs and vitals. I strongly recommended the patient be transferred as he has a high likelihood of decompensating due to all of the events which took place today ie several runs of vtach, DKA, sepsis and associated high fever of unknown origin. Dr Ortega also recommended a CTA to rule out a PE as well as an LP. The patient was ultimately admitted to [facility]. I did Tigertext the supervisory aide with my concerns and noted we did not have any ICU beds available. Patient was admitted to [facility] last evening with sepsis, UTI (unclear if this is the source of the sepsis), encephalopathy, non anion gap DKA, he also had runs of V-tach while in the ED but these had stopped prior to him being admitted. A few hours after admission, patient's blood pressure began to become soft, the patient was given a total of 5 L of fluids plus albumin with no resolution in the hypotension. ICU was called for consult. Upon my exam, the pt is complaining of heartburn, he is tachycardic in the 140's, tachypneic in the high 40's, febrile at 102F, A&O to self only, lungs CTA, abdomen is very tense. UO was not documented but maza had approx 1L in it. Repeat labs showed a metabolic acidosis with a pH 7.08 bicarb 10, metabolic pane l showed chloride 111, serum bicarb 10, gap 25, BUN 43, creatinine 2.26, glucose 677, troponin 40, BNP 207 and lactic acid 8.6. Troponin 40.4, BNP 207. EKG sinus tach 144BPM, no ST or T wave changes, new incomplete RBBB. In the ED, we started levophed gtt, pushed 25mcg fentanyl and 50meq sodium bicarb. I pushed 0.1mg phenylephrine x6 over the course of an hour to help support pt's BP. Patient is to be transferred to the ICU for intubation as well as management of his hypotension/sepsis, MARCEL and metabolic acidosis/DKA. Review of Systems Review of Systems: Yes all other systems are reviewed and are negative [facility] Past Medical History Medical History Anxiety Atherosclerotic heart disease of [place] coronary artery without angina pectoris Bipolar disorder COPD (chronic obstructive pulmonary disease) Delusional disorder Diabetes Dysphagia GERD (gastroesophageal reflux disease) HTN (hypertension) Hyperlipidemia Insomnia MDD (major depressive disorder) Obesity KILEY (obstructive sleep apnea) PTSD (post-traumatic stress disorder) Schizoaffective disorder Meds Allergies Allergy/AdvReac Type Severity Reaction Status Date / Time Sulfa (Sulfonamide Allergy Unknown Verified 12/11/21 15:09 Antibiotics) thiothixene Allergy Unknown Verified 12/11/21 15:12 anticholinergics Allergy Unknown Uncoded 12/11/21 15:14 trihexphenidyl Allergy Unknown Uncoded 12/11/21 15:13 Active Medications: Current Medications Acetaminophen (Acetaminophen 325 Mg Tablet) 650 mg PO Q6H PRN PRN Reason: Pain, Mild (Pain Scale 1-3) Last Admin: 12/12/21 02:00 Dose: 650 mg Chlorhexidine Gluconate (Chlorhexidine Gluc Oral Rinse 15 Ml Mouthwash) 15 ml BUCCAL TID SHA Dextrose (Dextrose 50 % 25 Gm/50 Ml Syringe) 25 gm IVPUSH Q15M PRN; Protocol PRN Reason: per Hypoglycemia Standing Ord. Docusate Sodium (Docusate Sodium 100 Mg Capsule) 100 mg PO DAILY PRN PRN Reason: Constipation Glucose (Glucose Gel 15 Gm Gel..Gram.) 15 gm PO Q15M PRN; Protocol PRN Reason: per Hypoglycemia Standing Ord. Heparin Sodium (Porcine) (Heparin Sodium,Porcine 5,000 Unit/Ml Vial) 5,000 unit SUBCUT Q12H SHA Last Admin: 12/11/21 23:13 Dose: 5,000 unit Lactated Ringer's (Lr) 1,000 mls @ 100 mls/hr IVCONT .Q10H [facility] Last Admin: 12/11/21 23:13 Dose: 100 mls/hr Piperacillin Sod/Tazobactam (Sod 3.375 gm/ Sodium Chloride) 50 mls @ 100 mls/hr IV Q6H [facility] Last Infusion: 12/12/21 00:10 Dose: Infused Vancomycin HCl 500 mg/ Sodium (Chloride) 110 mls @ 110 mls/hr IV Q12H [facility] Norepinephrine Bitartrate (Levophed) 8 mg in 250 mls @ 0 mls/hr IVCONT .Q0M [facility]; Protocol Last Admin: 12/12/21 05:57 Dose: 0.1 mcg/kg/min, 16.93 mls/hr Insulin Human Lispro (Insulin Lispro 100 Unit/Ml 3 Ml Vial) 0.1 - 10 unit SUBCUT QIDACHS [facility]; Protocol Ondansetron HCl (Ondansetron Hcl 4 Mg/2 Ml Vial) 4 mg IVPUSH Q8H PRN PRN Reason: Nausea and Vomiting Pharmacy Consult (Consult Rx Perform Med Rec) 1 each MISCELLANE ONCE PRN PRN Reason: Consult order Pharmacy Consult (Consult Rx Vancomycin Dosing) 1 each MISCELLANE DAILY PRN PRN Reason: Consult order Sodium Chloride (0.9 % Sodium Chloride Flush 3 Ml Syringe) 3 ml IVFLUSH QSHIFT [facility] Last Admin: 12/12/21 00:19 Dose: Not Given Home Medications Medication Instructions Recorded Confirmed Last Taken Type acetaminophen 325 mg tablet 650 mg PO Q6H 09/09/21 12/11/21 09/09/21 History amlodipine 10 mg tablet 10 mg PO DAILY 09/09/21 12/11/21 09/09/21 History aspirin 81 mg chewable tablet 81 mg PO DAILY 09/09/21 12/11/21 09/09/21 History cetirizine 10 mg tablet 10 mg PO DAILY 09/09/21 12/11/21 09/09/21 History clozapine 50 mg tablet 50 mg PO BEDTIME 09/09/21 12/11/21 09/08/21 History docusate sodium 100 mg tablet 100 mg PO BID 09/09/21 12/11/21 09/09/21 History dulaglutide 4.5 mg/0.5 mL 4.5 mg subcut [place] 09/09/21 12/11/21 12/07/21 History subcutaneous pen injector haloperidol 2 mg tablet 8 mg PO BEDTIME 09/09/21 12/11/21 09/08/21 History haloperidol 5 mg tablet 5 mg PO DAILY PRN Psychosis 09/09/21 12/11/21 Unknown History isosorbide mononitrate 30 mg 30 mg PO DAILY 09/09/21 12/11/21 09/09/21 History tablet,extended release 24 hr lactulose 10 gram/15 mL oral 20 g PO BID 09/09/21 12/11/21 09/09/21 History solution levothyroxine 25 mcg tablet 25 mcg PO DAILY@0600 09/09/21 12/11/21 09/09/21 History lorazepam 0.5 mg tablet (Ativan) 0.25 mg PO Q8H PRN Anxiety 09/09/21 12/11/21 Unknown History magnesium chloride 71.5 mg 143 mg PO DAILY 09/09/21 12/11/21 Unknown History (magnesium chloride) tablet,delayed release magnesium hydroxide 400 mg/5 mL 400 mg PO BEDTIME 09/09/21 12/11/21 Unknown History oral suspension (Milk of Magnesia) metformin 1,000 mg tablet 1,000 mg PO BID 09/09/21 12/11/21 09/09/21 History metoprolol tartrate 50 mg tablet 50 mg PO DAILY 09/09/21 12/11/21 09/09/21 History mirtazapine 15 mg tablet 15 mg PO BEDTIME 09/09/21 12/11/21 09/08/21 History niacin 500 mg tablet 500 mg PO DAILY 09/09/21 12/11/21 09/09/21 History omeprazole 20 mg tablet,delayed 20 mg PO DAILY 09/09/21 12/11/21 09/09/21 History release rosuvastatin 40 mg tablet 40 mg PO BEDTIME 09/09/21 12/11/21 09/08/21 History sennosides 8.6 mg tablet (senna) 8.6 mg PO BEDTIME 09/09/21 12/11/21 09/08/21 History simethicone 80 mg chewable tablet 80 mg PO TIDAC 09/09/21 12/11/21 09/09/21 History topiramate 100 mg tablet (Topamax) 100 mg PO BID 09/09/21 12/11/21 09/09/21 History valproic acid (as sodium salt) 250 1,250 mg PO BID 09/09/21 12/11/21 09/09/21 History mg/5 mL oral solution insulin lispro 100 unit/mL 1 sliding scale dose subcut 12/11/21 12/11/21 Unknown History subcutaneous pen USEASDIRECTD lidocaine 4 % topical patch 1 patch topical DAILY 12/11/21 12/11/21 Unknown History nystatin 100,000 unit/gram topical 1 appl topical BID 12/11/21 12/11/21 Unknown History powder Physical Exam Vital Signs: Vital Signs: Last Vital Signs Temp 102.7 F H 12/12/21 06:04 Pulse 140 H 12/12/21 06:04 Resp 40 H 12/12/21 06:04 BP 97/40 L 12/12/21 06:04 Pulse Ox 90 L 12/12/21 06:04 O2 Del Method 12/12/21 06:04 O2 Flow Rate 4 12/12/21 06:04 BMI result Body Mass Index 32.1 Const: General: cooperative, ill appearing acutely and tired appearing Nutritional Appearance: obese Orientation/consciousness: oriented to person, No oriented to place and No oriented to time Limitations: altered mental status HEENT: Head: Yes normal to inspection, Yes normocephalic and Yes atraumatic General nose exam: Normal external nose present Face and sinus: Yes normal facial exam Eyes: General: appearance normal, both eyes and all related structures Neck: Other: TLC in place on right side, dressing CDI Neck: Yes normal visual inspection and Yes full ROM Chest: Chest palpation & inspection: normal inspection of the chest Resp: Effort & Inspection: abnormal respiratory pattern (shallow) and tachypneic Auscultation: clear to auscultation bilaterally Cardio: Jugular venous distension: no JVD Rate: tachycardic Rhythm: regular rhythm Heart sounds: normal S1 and S2 GI: Inspection: Yes obesity Palpation (GI): not soft and Firmness to palpation present (GI) Skin: General skin exam: no rashes or lesions noted Neuro: General: oriented to person, No oriented to place and No oriented to time Results Labs CBC & Chem 7: 12/12/21 05:13 12/12/21 05:13 Labs: Short CBC 12/11/21 12/12/21 Range/Units 16:03 05:13 WBC 10.1 9.1 (4.8-10.8) X10*3/uL Hgb 15.1 D 12.4 L (14.0-18.0) g/dl Hct 46.9 D 40.2 L (42.0-52.0) % Plt Count 192 192 (160-400) X10*3/uL BMP 12/11/21 12/11/21 12/12/21 16:02 20:21 05:13 Sodium 140 140 141 Potassium 3.6 4.0 5.0 D Chloride 113 H 113 H 111 H Carbon Dioxide 11 L 13 L 10 L* D BUN 42 H D 43 H 43 H Creatinine 2.00 H 1.69 H 2.26 H Calcium 7.2 L D 7.4 L 7.9 L D Cardiac Enzymes 12/11/21 Range/Units 16:02 Total Creatine Kinase 100 (38-174) U/L Liver Function 12/11/21 Range/Units 16:02 Total Bilirubin 0.4 (0.0-1.0) mg/dL Direct Bilirubin 0.2 (0.0-0.5) mg/dL AST 11 (5-37) U/L ALT 9 (0-40) U/L Alkaline Phosphatase 45 D (39-117) U/L Albumin 3.1 L (3.5-5.0) g/dL Urine 12/11/21 Range/Units 17:14 Urine Color Dark Yellow Urine Appearance Turbid Urine pH 5.0 (5.0-9.0) Ur Specific [place] >= 1.030 H (1.005-1.025) Urine Protein 300 (3+) H (Neg-Trace) mg/dL Urine Glucose (UA) 250 H (Negative) mg/dL ECG ECG interpretation date: 12/12/21 ECG interpretation time: 05:35 Interpretation: sinus tach, new incomplete RBBB, no ST or T wave changes. Dr Jordan signed off on it. Imaging ALL: Radiologist's impression: Abdomen/Pelvis CT? 12/11/21 15:56 IMPRESSION: 1. Large volume of stool in the rectum and sigmoid with mild bowel wall thickening raising a question of stercoral colitis, though no surrounding inflammation of the mesentery. Volume of stool has increased since the exam of 09/09/2021. ? 2. Hepatosplenomegaly. ? 3. Cholelithiasis. ? 4. Small nonobstructive left renal stones. No hydronephrosis. ? 5. Redemonstration of small hyperattenuating lesion in the lower pole of the left kidney, likely a hypodense cyst. This is a Bosniak 2 lesion. No further workup would be suggested. ? 6. No acute abnormality of the chest. ? ? Chest CT? 12/11/21 15:56 IMPRESSION: 1. Large volume of stool in the rectum and sigmoid with mild bowel wall thickening raising a question of stercoral colitis, though no surrounding inflammation of the mesentery. Volume of stool has increased since the exam of 09/09/2021. ? 2. Hepatosplenomegaly. ? 3. Cholelithiasis. ? 4. Small nonobstructive left renal stones. No hydronephrosis. ? 5. Redemonstration of small hyperattenuating lesion in the lower pole of the left kidney, likely a hypodense cyst. This is a Bosniak 2 lesion. No further workup would be suggested. ? 6. No acute abnormality of the chest. Assessment and Plan (1) Encephalopathy: Status: Acute (2) Wide-complex tachycardia: Status: Acute (3) V-tach: Status: Acute (4) UTI (urinary tract infection): Status: Acute (5) Sepsis: Status: Acute (6) Fever of unknown origin: Status: Acute (7) DKA (diabetic ketoacidosis): Status: Acute (8) Metabolic acidosis: Status: Acute (9) Constipation: Status: Acute (10) Colitis: Status: Acute (11) MARCEL (acute kidney injury): Status: Acute (12) Large bowel obstruction: Status: Acute (13) Aspiration pneumonitis: Status: Acute (14) Acute hypoxemic respiratory failure: Status: Acute (15) Lactic acidosis: Status: Acute Plan Intubate patient upon arrival to the ICU. Will get LP, CVP, abdominal pressure, start insulin gtt and reassess. Critical Care Time Critical Care Time (minutes): 90
[2021-12-12 07:12] LABS: Glucose, Whole Blood 566 mg/dL (60-115)
[2021-12-12 07:17] LABS: Reflex Lactate? Lactic Acid Added
--- NOTE | 2021-12-12 07:36 | PC.NURSE ---
PT TO ICU FROM ER AT 0625. PT WAS AWAKE AND RESPONSIVE BUT NOT ANSWERING QUESTIONS. HE WAS TACHYPNEIC WITH RESP RATE IN THE 40'S AND TACHYCARDIC WITH HR 140'S. O2 SAT WAS 87% ON 5L. DR FARIAS AND NITISH BENJAMIN AT BEDSIDE. IT WAS DECIDED BY THEM TO INTUBATE PT. HE WAS INTUBATED WITH 7.0 ETT, 24 CM AT THE LIP AND PUT ON AC VENT SETTINGS. PT VOMITTED BROWN GASTRIC CONTENTS DURING INTUBATION. HE HAD RECEIVED PROPOFOL 30 MCG IVP AND ROCURONIUM 50 MG IVP PRIOR TO INTUBATTION. OGT INSERTED WITHOUT DIFFICULTY.. PCXR DONE TO CONFIRM PLACEMANT.
[2021-12-12 08:23] LABS: ~Lactic Acid-LAB USE ONLY 7.5 mmol/L (0.5-2.0)
--- NOTE | 2021-12-12 08:47 | HE.PHANOTE ---
Vancomycin Dosing Addendum Patient SCr increase to 2.26 today. Dose decreased from Q12H dosing to 750 mg Q24H starting 12/12. New expected AUC 521 with a trough of 16.5. Ginny KimD
--- NOTE | 2021-12-12 09:16 | P.DS_ITS ---
DS: Providers Provider Date of Service: 12/12/21 Date of admission: 12/11/21 22:17 Primary care physician: Desirae Yin MD DS: Diagnosis Discharge Diagnosis (1) Encephalopathy: Status: Acute (2) Wide-complex tachycardia: Status: Acute (3) V-tach: Status: Acute (4) UTI (urinary tract infection): Status: Acute (5) Sepsis: Status: Acute (6) Fever of unknown origin: Status: Acute (7) DKA (diabetic ketoacidosis): Status: Acute (8) Metabolic acidosis: Status: Acute (9) Constipation: Status: Acute (10) Colitis: Status: Acute (11) MARCEL (acute kidney injury): Status: Acute (12) Acute hypoxemic respiratory failure: Status: Acute (13) Aspiration pneumonitis: Status: Acute (14) Large bowel obstruction: Status: Acute (15) Lactic acidosis: Status: Acute DS: Summary Hospital Course Hospital Course: This 61-year-old morbidly obese male who is a diabetic hypertensive and hyperlipidemic with history of gastroesophageal reflux disease came in with altered mental status and hypoxemic respiratory failure somewhat obtunded had a spontaneous onset of monomorphic ventricular flutter which spontaneously broke but was sustained for nearly 30 seconds and was on combination of a primary antipsychotic namely Haldol as well as in 2nd generation namely clozapine with a nonspecific intraventricular conduction defect but a normal QT interval on the EKG I had concerns with the amiodarone loading infusion with 2 anti cholinergic drugs on board and the underlying rhythm we could not define the atrial mechanism could have been flutter versus some other form of atrial tachycardia I could not even rule out pre-excitation but heart rates were persistent in the with 110 range and and I initially expressed a concern for definition of the hypoxemia because there was no evidence of infiltrate and there was no apparent congestive picture and I had mentioned despite the creatinine of 1.69 possibly going ahead with a CT scan angiogram to rule out pulmonary embolism but expressed concern for enough for keeping him here and in that we lack to ICU space and that ventricular flutter defined a a by nature unstable situation likely to recur especially without further definition but there was also a temperature of a 104.5 degrees markedly distended abdomen without toxic megacolon but nonetheless about a 6-7 mm diameter at least to the transverse colon with extension extensive occlusive stool in the descending colon and sigmoid and sigmoid and rectum possibly a neff gracious obstruction but no free air but obtaining CSF without another source was becoming increasingly necessary He had also had at that time a milder of lactic acidosis that was developing he was markedly hyperglycemic as well and the ER physician did place a central line in the right internal jugular vein without complication in good position by chest x-ray and again without infiltrate or signs of congestion and nor in effusion Apparently stayed in the emergency room overnight and then I received a phone call at about 430 this morning stating that the patient was D stabilizing with a drop in blood pressure which was considerable worsening metabolic acidosis increasing lactic acid as well as hyperchloremia with an increasing negative be base excess which was considerable and the PA from the ICU in over to push several 100 mcg of phenylephrine to support the blood pressure and because the pCO2 on his blood gas was the was 30 he clearly was losing the ability to compensate for the metabolic acidosis where his pH was 7.08 so he needed to be intubated and we supported blood pressure brought him to the ICU at that point the patient then would just swelled up a very she can let looking and and large volume vomitus aspirating so we could be quickly sedated suction him intubated the patient and the placed him on 100% FiO2 with increasing positive end expiratory pressure and then we try to change him to bilevel intubation and ventilation and he had intractable oxygen saturations in the 70s we could not improve upon it there were concerns of course they also could have had a pulmonary embolism although had to rectify that with the other laboratory findings was a little bit difficult but saturations could could not be elevated despite staying with the patient for I would have to say nearly 3/4 of an hour playing with the vent the ventilator settings and suctioning pulmonary toileting its etc. to try to stabilize and titrating up on Levophed for blood pressure support he subsequently went into cardiac arrest following a brief period of bradycardia requiring the 20 minute CPR attempt where 5 mg in total of IV epinephrine at least 200 mEq of bicarb and then attempted 300 mg of IV ami odarone followed by 100 mg of lidocaine and at least 3-4 attempts at defibrillation for ventricular for ventricular fibrillation and ultimately following that effort he was asystolic and then he was pronounced at 11/08/1999 at hours or 08:19 this morning Time Spent with Patient Time attestation: Total time spent providing and/or coordinating discharge services: Discharge coordination time: Greater than 30 minutes Quality: Safe Use of Opioids Does Pt have an Active Cancer Diagnosis on the Problem List?: No Quality: Stroke Does the patient have a stroke diagnosis?: No Physical Exam Vital Signs: Vital Signs: Last Vital Signs Temp 102.7 F H 12/12/21 06:04 Pulse 140 H 12/12/21 06:25 Resp 44 H 12/12/21 06:25 BP 113/50 L 12/12/21 06:25 Pulse Ox 87 L 12/12/21 06:25 O2 Del Method 12/12/21 06:25 O2 Flow Rate 5 12/12/21 06:25 FiO2 100 12/12/21 07:47 BMI result Body Mass Index 32.1 Patient ultimately asystolic but prior to that he had poor barely palpable bilateral carotid upstrokes this is while intubated and in what looked like sinus tachycardia at a rate in the 130s and a blood pressure supported by Levophed Beginning to develop peripheral livedo but ultimately with asystole of course he was apneic with no palpable pulse He had noticeably a markedly increased degree of distention of his abdomen but was never stable enough to get a follow-up film to look for the possibility of perforation and the increasing and worsening lactic acidosis very difficult to say if this was part and parcel of compromised bowel and or septic issue or maybe even circulatory from right heart failure due to pulmonary embolism DS: Data Data Completed and Pending Labs on day of discharge: Laboratory Results - last 24 hr 12/11/21 12/11/21 12/11/21 16:00 16:00 16:00 WBC RBC Hgb Hct MCV MCH MCHC RDW Plt Count MPV Immature Gran % (Auto) Neut % (Auto) Lymph % (Auto) [place] % (Auto) Eos % (Auto) Baso % (Auto) Lymph # (Auto) [place] # (Auto) Eos # (Auto) Baso # (Auto) Abs Immat Gran (auto) Absolute Neuts (auto) Absolute Nucleated RBC Nucleated RBC % (auto) ESR PT 16.8 H INR 1.4 H APTT 30.7 O2 Saturation ABG pH at Pt Temp ABG pCO2 at Pt Temp ABG pO2 at Pt Temp ABG HCO3 ABG Base Excess (Actual) VBG pH VBG pCO2 VBG pO2 VBG HCO3 VBG O2 Saturation VBG Base Excess Sodium Potassium Chloride Carbon Dioxide Anion Gap BUN Creatinine Estim Creat Clear Calc Estimated GFR POC Glucose Random Glucose Lactic Acid 3.7 H* Lactic Acid F/U @ 2Hr Lactic Acid F/U @ 4Hr Calcium Magnesium Total Bilirubin Direct Bilirubin AST ALT Alkaline Phosphatase Ammonia Total Creatine Kinase Troponin I High Sens C-Reactive Protein B-Natriuretic Peptide Total Protein Albumin Lipase Procalcitonin Urine Color Urine Appearance Urine pH Ur Specific Gil[place] Urine Protein Urine Glucose (UA) Urine Ketones Urine Blood Urine Nitrite Ur Leukocyte Esterase Urine RBC Urine WBC Ur Squamous Epith Cells Urine Bacteria Hyaline Casts Granular Casts Urine Opiates Screen Urine Fentanyl Screen Ur Barbiturates Screen Ur Phencyclidine Scrn Ur Amphetamines Screen U Benzodiazepines Scrn Urine Cocaine Screen U Marijuana (THC) Screen Acetone, Qual Moderate H COVID-19 ([facility]) COVID-19 Clin Com Influenza Type A (PCR) Influenza Type B (PCR) RSV RNA Qual (PCR) SARS-CoV-2 RNA (RT-PCR) 12/11/21 12/11/21 12/11/21 16:01 16:02 16:02 WBC RBC Hgb Hct MCV MCH MCHC RDW Plt Count MPV Immature Gran % (Auto) Neut % (Auto) Lymph % (Auto) [place] % (Auto) Eos % (Auto) Baso % (Auto) Lymph # (Auto) [place] # (Auto) Eos # (Auto) Baso # (Auto) Abs Immat Gran (auto) Absolute Neuts (auto) Absolute Nucleated RBC Nucleated RBC % (auto) ESR PT INR APTT O2 Saturation ABG pH at Pt Temp ABG pCO2 at Pt Temp ABG pO2 at Pt Temp ABG HCO3 ABG Base Excess (Actual) VBG pH VBG pCO2 VBG pO2 VBG HCO3 VBG O2 Saturation VBG Base Excess Sodium 140 Potassium 3.6 Chloride 113 H Carbon Dioxide 11 L Anion Gap 20 BUN 42 H D Creatinine 2.00 H Estim Creat Clear Calc 40.8 Estimated GFR 34 POC Glucose Random Glucose 646 H* Lactic Acid Lactic Acid F/U @ 2Hr Lactic Acid F/U @ 4Hr Calcium 7.2 L D Magnesium 1.9 Total Bilirubin 0.4 Direct Bilirubin 0.2 AST 11 ALT 9 Alkaline Phosphatase 45 D Ammonia 23 Total Creatine Kinase 100 Troponin I High Sens 39.6 H C-Reactive Protein 1.31 H B-Natriuretic Peptide Total Protein 6.1 L Albumin 3.1 L Lipase 20 Procalcitonin Urine Color Urine Appearance Urine pH Ur Specific Gilson Urine Protein Urine Glucose (UA) Urine Ketones Urine Blood Urine Nitrite Ur Leukocyte Esterase Urine RBC Urine WBC Ur Squamous Epith Cells Urine Bacteria Hyaline Casts Granular Casts Urine Opiates Screen Urine Fentanyl Screen Ur Barbiturates Screen Ur Phencyclidine Scrn Ur Amphetamines Screen U Benzodiazepines Scrn Urine Cocaine Screen U Marijuana (THC) Screen Acetone, Qual COVID-19 ([facility]) COVID-19 Clin Com Influenza Type A (PCR) Influenza Type B (PCR) RSV RNA Qual (PCR) SARS-CoV-2 RNA (RT-PCR) 12/11/21 12/11/21 12/11/21 16:02 16:03 16:03 WBC 10.1 RBC 5.45 D Hgb 15.1 D Hct 46.9 D MCV 86.1 MCH 27.7 MCHC 32.2 RDW 15.3 Plt Count 192 MPV 11.0 Immature Gran % (Auto) 0.4 Neut % (Auto) 65.6 Lymph % (Auto) 21.2 [place] % (Auto) 12.4 H Eos % (Auto) 0.0 Baso % (Auto) 0.4 Lymph # (Auto) 2.1 [place] # (Auto) 1.3 H Eos # (Auto) 0.0 Baso # (Auto) 0.0 Abs Immat Gran (auto) 0.04 H Absolute Neuts (auto) 6.6 Absolute Nucleated RBC 0.000 Nucleated RBC % (auto) 0.0 ESR PT INR APTT O2 Saturation ABG pH at Pt Temp ABG pCO2 at Pt Temp ABG pO2 at Pt Temp ABG HCO3 ABG Base Excess (Actual) VBG pH VBG pCO2 VBG pO2 VBG HCO3 VBG O2 Saturation VBG Base Excess Sodium Potassium Chloride Carbon Dioxide Anion Gap BUN Creatinine Estim Creat Clear Calc Estimated GFR POC Glucose Random Glucose Lactic Acid Lactic Acid F/U @ 2Hr Lactic Acid F/U @ 4Hr Calcium Magnesium Total Bilirubin Direct Bilirubin AST ALT Alkaline Phosphatase Ammonia Total Creatine Kinase Troponin I High Sens C-Reactive Protein B-Natriuretic Peptide 82 Total Protein Albumin Lipase Procalcitonin 0.30 Urine Color Urine Appearance Urine pH Ur Specific [place] Urine Protein Urine Glucose (UA) Urine Ketones Urine Blood Urine Nitrite Ur Leukocyte Esterase Urine RBC Urine WBC Ur Squamous Epith Cells Urine Bacteria Hyaline Casts Granular Casts Urine Opiates Screen Urine Fentanyl Screen Ur Barbiturates Screen Ur Phencyclidine Scrn Ur Amphetamines Screen U Benzodiazepines Scrn Urine Cocaine Screen U Marijuana (THC) Screen Acetone, Qual COVID-19 ([facility]) COVID-19 Clin Com Influenza Type A (PCR) Influenza Type B (PCR) RSV RNA Qual (PCR) SARS-CoV-2 RNA (RT-PCR) 12/11/21 12/11/21 12/11/21 16:03 16:04 16:12 WBC RBC Hgb Hct MCV MCH MCHC RDW Plt Count MPV Immature Gran % (Auto) Neut % (Auto) Lymph % (Auto) [place] % (Auto) Eos % (Auto) Baso % (Auto) Lymph # (Auto) [place] # (Auto) Eos # (Auto) Baso # (Auto) Abs Immat Gran (auto) Absolute Neuts (auto) Absolute Nucleated RBC Nucleated RBC % (auto) ESR 29 H PT INR APTT O2 Saturation ABG pH at Pt Temp ABG pCO2 at Pt Temp ABG pO2 at Pt Temp ABG HCO3 ABG Base Excess (Actual) VBG pH 7.28 L VBG pCO2 30 VBG pO2 54 VBG HCO3 14 L VBG O2 Saturation 79.0 VBG Base Excess -10.7 Sodium Potassium Chloride Carbon Dioxide Anion Gap BUN Creatinine Estim Creat Clear Calc Estimated GFR POC Glucose Random Glucose Lactic Acid Lactic Acid F/U @ 2Hr Lactic Acid F/U @ 4Hr Calcium Magnesium Total Bilirubin Direct Bilirubin AST ALT Alkaline Phosphatase Ammonia Total Creatine Kinase Troponin I High Sens C-Reactive Protein B-Natriuretic Peptide Total Protein Albumin Lipase Procalcitonin Urine Color Urine Appearance Urine pH Ur Specific [place] Urine Protein Urine Glucose (UA) Urine Ketones Urine Blood Urine Nitrite Ur Leukocyte Esterase Urine RBC Urine WBC Ur Squamous Epith Cells Urine Bacteria Hyaline Casts Granular Casts Urine Opiates Screen Urine Fentanyl Screen Ur Barbiturates Screen Ur Phencyclidine Scrn Ur Amphetamines Screen U Benzodiazepines Scrn Urine Cocaine Screen U Marijuana (THC) Screen Acetone, Qual COVID-19 ([facility]) Invalid COVID-19 Clin Com See Note Influenza Type A (PCR) Influenza Type B (PCR) RSV RNA Qual (PCR) SARS-CoV-2 RNA (RT-PCR) 12/11/21 12/11/21 12/11/21 17:14 17:15 18:24 WBC RBC Hgb Hct MCV MCH MCHC RDW Plt Count MPV Immature Gran % (Auto) Neut % (Auto) Lymph % (Auto) [place] % (Auto) Eos % (Auto) Baso % (Auto) Lymph # (Auto) [place] # (Auto) Eos # (Auto) Baso # (Auto) Abs Immat Gran (auto) Absolute Neuts (auto) Absolute Nucleated RBC Nucleated RBC % (auto) ESR PT INR APTT O2 Saturation 98.0 ABG pH at Pt Temp 7.31 L ABG pCO2 at Pt Temp 25 L ABG pO2 at Pt Temp 110 H ABG HCO3 13 L ABG Base Excess (Actual) -11.2 VBG pH VBG pCO2 VBG pO2 VBG HCO3 VBG O2 Saturation VBG Base Excess Sodium Potassium Chloride Carbon Dioxide Anion Gap BUN Creatinine Estim Creat Clear Calc Estimated GFR POC Glucose Random Glucose Lactic Acid Lactic Acid F/U @ 2Hr Lactic Acid F/U @ 4Hr Calcium Magnesium Total Bilirubin Direct Bilirubin AST ALT Alkaline Phosphatase Ammonia Total Creatine Kinase Troponin I High Sens C-Reactive Protein B-Natriuretic Peptide Total Protein Albumin Lipase Procalcitonin Urine Color Dark Yellow Urine Appearance Turbid Urine pH 5.0 Ur Specific Gilson >= 1.030 H Urine Protein 300 (3+) H Urine Glucose (UA) 250 H Urine Ketones 15 Urine Blood Large (3+) H Urine Nitrite Negative Ur Leukocyte Esterase Trace H Urine RBC >20 H Urine WBC 6-10 Ur Squamous Epith Cells 6-10 Urine Bacteria 1+ Hyaline Casts 3-5 Granular Casts Present Urine Opiates Screen Urine Fentanyl Screen Ur Barbiturates Screen Ur Phencyclidine Scrn Ur Amphetamines Screen U Benzodiazepines Scrn Urine Cocaine Screen U Marijuana (THC) Screen Acetone, Qual COVID-19 ([facility]) COVID-19 Clin Com Influenza Type A (PCR) NEGATIVE Influenza Type B (PCR) NEGATIVE RSV RNA Qual (PCR) NEGATIVE SARS-CoV-2 RNA (RT-PCR) NEGATIVE 12/11/21 12/11/21 12/11/21 18:38 18:44 18:44 WBC RBC Hgb Hct MCV MCH MCHC RDW Plt Count MPV Immature Gran % (Auto) Neut % (Auto) Lymph % (Auto) [place] % (Auto) Eos % (Auto) Baso % (Auto) Lymph # (Auto) [place] # (Auto) Eos # (Auto) Baso # (Auto) Abs Immat Gran (auto) Absolute Neuts (auto) Absolute Nucleated RBC Nucleated RBC % (auto) ESR PT INR APTT O2 Saturation ABG pH at Pt Temp ABG pCO2 at Pt Temp ABG pO2 at Pt Temp ABG HCO3 ABG Base Excess (Actual) VBG pH VBG pCO2 VBG pO2 VBG HCO3 VBG O2 Saturation VBG Base Excess Sodium Potassium Chloride Carbon Dioxide Anion Gap BUN Creatinine Estim Creat Clear Calc Estimated GFR POC Glucose 448 H* Random Glucose Lactic Acid Lactic Acid F/U @ 2Hr 3.0 H* Lactic Acid F/U @ 4Hr Calcium Magnesium Total Bilirubin Direct Bilirubin AST ALT Alkaline Phosphatase Ammonia Total Creatine Kinase Troponin I High Sens 43.3 H C-Reactive Protein B-Natriuretic Peptide Total Protein Albumin Lipase Procalcitonin Urine Color Urine Appearance Urine pH Ur Specific Gilson Urine Protein Urine Glucose (UA) Urine Ketones Urine Blood Urine Nitrite Ur Leukocyte Esterase Urine RBC Urine WBC Ur Squamous Epith Cells Urine Bacteria Hyaline Casts Granular Casts Urine Opiates Screen Urine Fentanyl Screen Ur Barbiturates Screen Ur Phencyclidine Scrn Ur Amphetamines Screen U Benzodiazepines Scrn Urine Cocaine Screen U Marijuana (THC) Screen Acetone, Qual COVID-19 ([facility]) COVID-19 Clin Com Influenza Type A (PCR) Influenza Type B (PCR) RSV RNA Qual (PCR) SARS-CoV-2 RNA (RT-PCR) 12/11/21 12/11/21 12/11/21 20:21 21:01 21:53 WBC RBC Hgb Hct MCV MCH MCHC RDW Plt Count MPV Immature Gran % (Auto) Neut % (Auto) Lymph % (Auto) [place] % (Auto) Eos % (Auto) Baso % (Auto) Lymph # (Auto) [place] # (Auto) Eos # (Auto) Baso # (Auto) Abs Immat Gran (auto) Absolute Neuts (auto) Absolute Nucleated RBC Nucleated RBC % (auto) ESR PT INR APTT O2 Saturation ABG pH at Pt Temp ABG pCO2 at Pt Temp ABG pO2 at Pt Temp ABG HCO3 ABG Base Excess (Actual) VBG pH VBG pCO2 VBG pO2 VBG HCO3 VBG O2 Saturation VBG Base Excess Sodium 140 Potassium 4.0 Chloride 113 H Carbon Dioxide 13 L Anion Gap 18 BUN 43 H Creatinine 1.69 H Estim Creat Clear Calc 48.3 Estimated GFR 41 POC Glucose 441 H* Random Glucose 580 H* Lactic Acid Lactic Acid F/U @ 2Hr Lactic Acid F/U @ 4Hr Calcium 7.4 L Magnesium Total Bilirubin Direct Bilirubin AST ALT Alkaline Phosphatase Ammonia Total Creatine Kinase Troponin I High Sens C-Reactive Protein B-Natriuretic Peptide Total Protein Albumin Lipase Procalcitonin Urine Color Urine Appearance Urine pH Ur Specific [place] Urine Protein Urine Glucose (UA) Urine Ketones Urine Blood Urine Nitrite Ur Leukocyte Esterase Urine RBC Urine WBC Ur Squamous Epith Cells Urine Bacteria Hyaline Casts Granular Casts Urine Opiates Screen Not Detected Urine Fentanyl Screen Not Detected Ur Barbiturates Screen Not Detected Ur Phencyclidine Scrn Not Detected Ur Amphetamines Screen Not Detected U Benzodiazepines Scrn Not Detected Urine Cocaine Screen Not Detected U Marijuana (THC) Screen Not Detected Acetone, Qual COVID-19 ([facility]) COVID-19 Clin Com Influenza Type A (PCR) Influenza Type B (PCR) RSV RNA Qual (PCR) SARS-CoV-2 RNA (RT-PCR) 12/11/21 12/12/21 12/12/21 21:53 04:43 05:11 WBC RBC Hgb Hct MCV MCH MCHC RDW Plt Count MPV Immature Gran % (Auto) Neut % (Auto) Lymph % (Auto) [place] % (Auto) Eos % (Auto) Baso % (Auto) Lymph # (Auto) [place] # (Auto) Eos # (Auto) Baso # (Auto) Abs Immat Gran (auto) Absolute Neuts (auto) Absolute Nucleated RBC Nucleated RBC % (auto) ESR PT INR APTT O2 Saturation ABG pH at Pt Temp ABG pCO2 at Pt Temp ABG pO2 at Pt Temp ABG HCO3 ABG Base Excess (Actual) VBG pH VBG pCO2 VBG pO2 VBG HCO3 VBG O2 Saturation VBG Base Excess Sodium Potassium Chloride Carbon Dioxide Anion Gap BUN Creatinine Estim Creat Clear Calc Estimated GFR POC Glucose 448 H* Random Glucose Lactic Acid 8.6 H* Lactic Acid F/U @ 2Hr Lactic Acid F/U @ 4Hr 2.6 H* Calcium Magnesium Total Bilirubin Direct Bilirubin AST ALT Alkaline Phosphatase Ammonia Total Creatine Kinase Troponin I High Sens C-Reactive Protein B-Natriuretic Peptide Total Protein Albumin Lipase Procalcitonin Urine Color Urine Appearance Urine pH Ur Specific [place] Urine Protein Urine Glucose (UA) Urine Ketones Urine Blood Urine Nitrite Ur Leukocyte Esterase Urine RBC Urine WBC Ur Squamous Epith Cells Urine Bacteria Hyaline Casts Granular Casts Urine Opiates Screen Urine Fentanyl Screen Ur Barbiturates Screen Ur Phencyclidine Scrn Ur Amphetamines Screen U Benzodiazepines Scrn Urine Cocaine Screen U Marijuana (THC) Screen Acetone, Qual COVID-19 ([facility]) COVID-19 [facility] Influenza Type A (PCR) Influenza Type B (PCR) RSV RNA Qual (PCR) SARS-CoV-2 RNA (RT-PCR) 12/12/21 12/12/21 12/12/21 05:13 05:13 05:13 WBC 9.1 RBC 4.43 L Hgb 12.4 L Hct 40.2 L MCV 90.7 MCH 28.0 MCHC 30.8 L RDW 15.9 Plt Count 192 MPV 10.8 Immature Gran % (Auto) 1.1 H Neut % (Auto) 71.5 Lymph % (Auto) 18.7 L [place] % (Auto) 7.9 Eos % (Auto) 0.4 Baso % (Auto) 0.4 Lymph # (Auto) 1.7 [place] # (Auto) 0.7 Eos # (Auto) 0.0 Baso # (Auto) 0.0 Abs Immat Gran (auto) 0.10 H Absolute Neuts (auto) 6.5 Absolute Nucleated RBC 0.000 Nucleated RBC % (auto) 0.0 ESR PT INR APTT O2 Saturation ABG pH at Pt Temp ABG pCO2 at Pt Temp ABG pO2 at Pt Temp ABG HCO3 ABG Base Excess (Actual) VBG pH VBG pCO2 VBG pO2 VBG HCO3 VBG O2 Saturation VBG Base Excess Sodium 141 Potassium 5.0 D Chloride 111 H Carbon Dioxide 10 L* D Anion Gap 25 H BUN 43 H Creatinine 2.26 H Estim Creat Clear Calc 36.1 Estimated GFR 30 POC Glucose Random Glucose 677 H* Lactic Acid Lactic Acid F/U @ 2Hr Lactic Acid F/U @ 4Hr Calcium 7.9 L D Magnesium Total Bilirubin Direct Bilirubin AST ALT Alkaline Phosphatase Ammonia Total Creatine Kinase Troponin I High Sens C-Reactive Protein B-Natriuretic Peptide Total Protein Albumin Lipase Procalcitonin Urine Color Urine Appearance Urine pH Ur Specific [place] Urine Protein Urine Glucose (UA) Urine Ketones Urine Blood Urine Nitrite Ur Leukocyte Esterase Urine RBC Urine WBC Ur Squamous Epith Cells Urine Bacteria Hyaline Casts Granular Casts Urine Opiates Screen Urine Fentanyl Screen Ur Barbiturates Screen Ur Phencyclidine Scrn Ur Amphetamines Screen U Benzodiazepines Scrn Urine Cocaine Screen U Marijuana (THC) Screen Acetone, Qual Negative COVID-19 ([facility]) COVID-19 Clin Com Influenza Type A (PCR) Influenza Type B (PCR) RSV RNA Qual (PCR) SARS-CoV-2 RNA (RT-PCR) 12/12/21 12/12/21 12/12/21 05:13 05:13 05:19 WBC RBC Hgb Hct MCV MCH MCHC RDW Plt Count MPV Immature Gran % (Auto) Neut % (Auto) Lymph % (Auto) [place] % (Auto) Eos % (Auto) Baso % (Auto) Lymph # (Auto) [place] # (Auto) Eos # (Auto) Baso # (Auto) Abs Immat Gran (auto) Absolute Neuts (auto) Absolute Nucleated RBC Nucleated RBC % (auto) ESR PT INR APTT O2 Saturation ABG pH at Pt Temp ABG pCO2 at Pt Temp ABG pO2 at Pt Temp ABG HCO3 ABG Base Excess (Actual) VBG pH 7.08 L* VBG pCO2 33 VBG pO2 45 VBG HCO3 10 L VBG O2 Saturation 60.0 VBG Base Excess -18.8 Sodium Potassium Chloride Carbon Dioxide Anion Gap BUN Creatinine Estim Creat Clear Calc Estimated GFR POC Glucose Random Glucose Lactic Acid Lactic Acid F/U @ 2Hr Lactic Acid F/U @ 4Hr Calcium Magnesium Total Bilirubin Direct Bilirubin AST ALT Alkaline Phosphatase Ammonia Total Creatine Kinase Troponin I High Sens 40.4 H C-Reactive Protein B-Natriuretic Peptide Cancelled 207 H Total Protein Albumin Lipase Procalcitonin Urine Color Urine Appearance Urine pH Ur Specific [place] Urine Protein Urine Glucose (UA) Urine Ketones Urine Blood Urine Nitrite Ur Leukocyte Esterase Urine RBC Urine WBC Ur Squamous Epith Cells Urine Bacteria Hyaline Casts Granular Casts Urine Opiates Screen Urine Fentanyl Screen Ur Barbiturates Screen Ur Phencyclidine Scrn Ur Amphetamines Screen U Benzodiazepines Scrn Urine Cocaine Screen U Marijuana (THC) Screen Acetone, Qual COVID-19 ([facility]) COVID-19 Clin Com Influenza Type A (PCR) Influenza Type B (PCR) RSV RNA Qual (PCR) SARS-CoV-2 RNA (RT-PCR) 12/12/21 12/12/21 07:08 07:46 WBC RBC Hgb Hct MCV MCH MCHC RDW Plt Count MPV Immature Gran % (Auto) Neut % (Auto) Lymph % (Auto) [place] % (Auto) Eos % (Auto) Baso % (Auto) Lymph # (Auto) [place] # (Auto) Eos # (Auto) Baso # (Auto) Abs Immat Gran (auto) Absolute Neuts (auto) Absolute Nucleated RBC Nucleated RBC % (auto) ESR PT INR APTT O2 Saturation ABG pH at Pt Temp ABG pCO2 at Pt Temp ABG pO2 at Pt Temp ABG HCO3 ABG Base Excess (Actual) VBG pH VBG pCO2 VBG pO2 VBG HCO3 VBG O2 Saturation VBG Base Excess Sodium Potassium Chloride Carbon Dioxide Anion Gap BUN Creatinine Estim Creat Clear Calc Estimated GFR POC Glucose 566 H* Random Glucose Lactic Acid Lactic Acid F/U @ 2Hr 7.5 H* Lactic Acid F/U @ 4Hr Calcium Magnesium Total Bilirubin Direct Bilirubin AST ALT Alkaline Phosphatase Ammonia Total Creatine Kinase Troponin I High Sens C-Reactive Protein B-Natriuretic Peptide Total Protein Albumin Lipase Procalcitonin Urine Color Urine Appearance Urine pH Ur Specific [place] Urine Protein Urine Glucose (UA) Urine Ketones Urine Blood Urine Nitrite Ur Leukocyte Esterase Urine RBC Urine WBC Ur Squamous Epith Cells Urine Bacteria Hyaline Casts Granular Casts Urine Opiates Screen Urine Fentanyl Screen Ur Barbiturates Screen Ur Phencyclidine Scrn Ur Amphetamines Screen U Benzodiazepines Scrn Urine Cocaine Screen U Marijuana (THC) Screen Acetone, Qual COVID-19 ([facility]) COVID-19 Clin Com Influenza Type A (PCR) Influenza Type B (PCR) RSV RNA Qual (PCR) SARS-CoV-2 RNA (RT-PCR) Discharge Plan Discharge Patient Disposition: Discharge Diagnosis: Metabolic encephalopathy Acute hypoxemic respiratory failure Neff gracious obstruction of the large bowel Lactic acidosis Septic shock Referrals: Desirae Yin MD [Primary Care Provider] - 1 Week Discharge Medications: No Action sennosides [senna] 8.6 mg Tablet 8.6 mg PO BEDTIME acetaminophen 325 mg Tablet 650 mg PO Q6H haloperidol [Haldol] 5 mg Tablet 5 mg PO DAILY PRN (Reason: Psychosis) cetirizine 10 mg Tablet 10 mg PO DAILY isosorbide mononitrate 30 mg Tablet Extended Release 24 Hr 30 mg PO DAILY levothyroxine 25 mcg Tablet 25 mcg PO DAILY@0600 lorazepam [Ativan] 0.5 mg Tablet 0.25 mg PO Q8H PRN (Reason: Anxiety) magnesium hydroxide [Milk of Magnesia] 400 mg/5 mL Suspension 400 mg PO BEDTIME valproic acid (as sodium salt) 250 mg/5 mL Solution 1,250 mg PO BID amlodipine 10 mg Tablet 10 mg PO DAILY metformin 1,000 mg Tablet 1,000 mg PO BID niacin 500 mg Tablet 500 mg PO DAILY aspirin 81 mg Tablet,Chewable 81 mg PO DAILY mirtazapine 15 mg Tablet 15 mg PO BEDTIME haloperidol [Haldol] 2 mg Tablet 8 mg PO BEDTIME topiramate [Topamax] 100 mg Tablet 100 mg PO BID docusate sodium 100 mg Tablet 100 mg PO BID simethicone 80 mg Tablet,Chewable 80 mg PO TIDAC rosuvastatin 40 mg Tablet 40 mg PO BEDTIME lactulose 10 gram/15 mL Solution 20 g PO BID clozapine 50 mg Tablet 50 mg PO BEDTIME omeprazole 20 mg Tablet,Delayed Release (Dr/Ec) 20 mg PO DAILY magnesium chloride 71.5 mg Tablet,Delayed Release (Dr/Ec) 143 mg PO DAILY dulaglutide 4.5 mg/0.5 mL Pen Injector 4.5 mg SUBCUT [place] metoprolol tartrate 50 mg Tablet 50 mg PO DAILY nystatin 100,000 unit/gram Powder 1 appl TOPICAL BID insulin lispro 100 unit/mL Insulin Pen 1 sliding scale dose SUBCUT USEASDIRECTD lidocaine 4 % Adhesive Patch,Medicated 1 patch TOPICAL DAILY
[2021-12-12 10:00] LABS: Reflex Lactate? 2 Y
== END 2021-12-12 11:46 | disposition expired | DRG 720 ==
LOC: HO.ED 17:46 → HO.EDOVER 22:34 → HO.ICU 12-12 06:44
PROVIDERS: Physician Assistant; Admitting Provider Internal Medicine; Emergency Provider Emergency Medicine; PCP Internal Medicine; Visit Provider Internal Medicine Cardiovascular Disease
DX: A41.9 Sepsis, unspecified organism (principal); J96.01 Acute respiratory failure with hypoxia; J69.0 Pneumonitis due to inhalation of food and vomit; R65.21 Severe sepsis with septic shock; G92.8 Other toxic encephalopathy; I47.2 Ventricular tachycardia; N17.9 Acute kidney failure, unspecified; E11.10 Type 2 diabetes mellitus with ketoacidosis without coma; K56.609 Unspecified intestinal obstruction, unspecified as to partial versus complete obstruction; F25.9 Schizoaffective disorder, unspecified; F43.10 Post-traumatic stress disorder, unspecified; N39.0 Urinary tract infection, site not specified; I10 Essential (primary) hypertension; J44.9 Chronic obstructive pulmonary disease, unspecified; F79 Unspecified intellectual disabilities; G47.33 Obstructive sleep apnea (adult) (pediatric); E78.5 Hyperlipidemia, unspecified; K21.9 Gastro-esophageal reflux disease without esophagitis; K59.00 Constipation, unspecified; I25.10 Atherosclerotic heart disease of native coronary artery without angina pectoris; Z20.822 Contact with and (suspected) exposure to COVID-19; E66.01 Morbid (severe) obesity due to excess calories; Z68.32 Body mass index [BMI] 32.0-32.9, adult; Z88.2 Allergy status to sulfonamides; Z99.3 Dependence on wheelchair; Z88.8 Allergy status to other drugs, medicaments and biological substances; Z79.4 Long term (current) use of insulin; Z79.84 Long term (current) use of oral hypoglycemic drugs; Z79.890 Hormone replacement therapy; Z79.899 Other long term (current) drug therapy
CPT/HCPCS: 0241U; 36415; 70450; 71045; 71250; 74176; 80048; 80076; 80307; 81001; 82009; 82140; 82550; 82803; 82947; 83605; 83690; 83735; 83880; 84145; 84484; 85025; 85610; 85652; 85730; 86140; 87040; 87086; 87635; 93005; 94002; 99285; J0131; J0153; J0171; J0282; J1885; J2370; J2543; J3010; J3370; J3475; P9047